=== PATIENT | female | born 1960 | race Caucasian/White ===

== ENCOUNTER 2024-11-05 13:59 | Outpatient (AMB) | payer OTHER, SELFPAY ==
--- NOTE | 2024-11-05 14:01 | A.OFFVIS_ITS ---
Vital Signs 11/05/24 14:06 BP 110/80 Blood Pressure Location Lt brachial Position Sitting Pulse 94 Pulse Source Pulse Oximeter Pulse Oximetry (%) 100 Oxygen Delivery Method Room Air Intake Visit Reasons: Hx Lung CA Allergies nafcillin Adverse Reaction (Verified 11/05/24 14:10) Hives Penicillins Adverse Reaction (Verified 11/05/24 14:10) Hives Medication List - Last Reconciled 11/05/24 by Tiki Vega LPN cetirizine (Zyrtec) 10 mg PO DAILY PRN furosemide 20 mg PO DAILY ipratropium bromide 2 sprays intranasal BID lorazepam 0.5 mg PO DAILY PRN losartan 100 mg PO DAILY montelukast (Singulair) 10 mg PO DAILY pantoprazole 40 mg PO DAILY rosuvastatin 10 mg PO DAILY HPI Comments Details: The patient is here for a pulmonary evaluation. The patient is a 64 year woman with known history of COPD in addition to lung cancer status post resection back about 5 years ago. She is followed closely by thoracic surgery. She has had CT scans every 6 months for the last 5 years in no evidence of any recurrence. Therefore, she will continue to get CAT scans in a yearly basis now. The patient does complaint of dyspnea on exertion. Moderate severity. She also complains of productive cough with chest congestion. Seems to be getting worse. Sometimes it wakes her up at nighttime. she feels like her symptoms are worse when she is in her home. She is wondering if she could be having a reaction to something in the environment. She does not have good ventilation inside the apartment. She feels that this is causing her to have worsening respiratory symptoms. She has been on the Trelegy inhaler with good effect. She also has a rescue inhaler. She does not tolerate regular albuterol so therefore she does take levo albuterol with better response. She does have frequent exacerbations. When she does have an exacerbation she does respond well to prednisone. At this point the patient will be a great candidate for Daliresp. She has chronic bronchitis with multiple exacerbations. The Daliresp will help decrease her prednisone need and hopefully decrease the mucus burden inflammation of the airways. She can start with 250 mcg dose. She is aware of the side effects. And hopefully she can increase it to the 500 mcg dose in the future. She did have blood work done at [facility] which were reviewed. No evidence of any eosinophilia so therefore not a candidate for Dupixent at this time. One other option to consider is Ohtuvayre. [facility] Medical History (Updated 11/05/24 @ 22:44 by Irvin Shepard MD) Dyspnea History of lung cancer COPD (chronic obstructive pulmonary disease) Review of Systems Const Denies fever(s) Eyes Reports no additional complaints ENT Reports nasal congestion Card Denies chest pain and Reports dyspnea on exertion Resp Reports chest congestion, Reports cough, Reports dyspnea on exertion and Reports wheezing GI Reports no additional complaints Musc Reports myalgias Skin/Breast Denies rash Endo Reports flushing and Reports heat intolerance Ralph/Lymph Reports no additional complaints Aller/Immun Reports wheezing Physical Exam Vital Signs: Last Vital Signs Pulse 94 11/05/24 14:06 BP 110/80 11/05/24 14:06 Pulse Ox 100 11/05/24 14:06 Oxygen Delivery Method Room Air 11/05/24 14:06 Const General: comfortable HEENT Head: Yes normocephalic Neck Neck: Yes supple Chest Chest palpation & inspection: normal inspection of the chest Resp Effort & Inspection: normal respiratory effort Auscultation: rhonchi and diminished lung sounds Cardio Heart sounds: S1 normal heart sound present and S2 normal heart sound present GI Palpation (GI): Soft to palpation Skin General skin exam: no rashes or lesions noted Extrem Right upper extremity: no cyanosis Assessment & Plan Assessment & Plan (1) COPD (chronic obstructive pulmonary disease): Code(s): J44.9 - Chronic obstructive pulmonary disease, unspecified Category: Medical Qualifiers: COPD type: chronic bronchitis Chronic bronchitis type: mucopurulent Qualified Code(s): J41.1 - Mucopurulent chronic bronchitis (2) History of lung cancer: Code(s): Z85.118 - Personal history of other malignant neoplasm of bronchus and lung Category: Medical (3) Dyspnea: Code(s): R06.00 - Dyspnea, unspecified Category: Medical Qualifiers: Dyspnea type: dyspnea on exertion Qualified Code(s): R06.09 - Other forms of dyspnea Plan Continue Trelegy ERICA (xopenex) as needed start Daliresp 250mcg dose then should increase when able continue singulair PFTs/F/U same day in 8 weeks Orders: Orders PFT pulmonary function test Today J41.1 - Mucopurulent chronic bronchitis Medications: New roflumilast (Daliresp) 250 mcg PO DAILY 30 days 30 tabs 11RF J44.9 - Chronic obstructive pulmonary disease, unspecified Coding Level of Care Code New Pt Level 4 (40425) Diagnoses Mucopurulent chronic bronchitis J41.1 COPD type: chronic bronchitis Chronic bronchitis type: mucopurulent History of lung cancer Z85.118 Dyspnea on exertion R06.09 Dyspnea type: dyspnea on exertion Time Spent (min) 45
[2024-11-05 14:06] VITALS: BP 110/80; PULSE 94; O2SAT 100
== END 2024-11-05 14:45 | disposition home or self-care (01) ==
PROVIDERS: PCP Internal Medicine; Referring Provider Internal Medicine; Visit Provider Hospitalist
DX: J41.1 Mucopurulent chronic bronchitis (principal); Z85.118 Personal history of other malignant neoplasm of bronchus and lung; R06.09 Other forms of dyspnea
CPT/HCPCS: 99204

== ENCOUNTER → 2024-11-05 13:59 | Outpatient (BNVA) | payer OTHER, SELFPAY | PROVIDERS: PCP Internal Medicine; Referring Provider Internal Medicine; Visit Provider Hospitalist | DX: J41.1 Mucopurulent chronic bronchitis (principal); R06.09 Other forms of dyspnea; Z85.118 Personal history of other malignant neoplasm of bronchus and lung | CPT/HCPCS: 99202 ==

== ENCOUNTER 2024-12-25 13:05 | Outpatient (REF) | payer OTHER, SELFPAY ==
--- NOTE | 2024-12-25 13:09 | PFT_ITS ---
Indication: Chronic bronchitis Spirometry [FEV1 to FVC 59%; FEV1 2.13 L; FVC 3.59 L. No significant response to bronchodilators noted.] Lung Volumes [Total lung capacity 102% predicted] Diffusion Capacity [DLCO 74% predicted] Comparisons [none] Interpretation [There is an obstructive ventilatory defect consistent with mild COPD. No significant response to bronchodilators noted. Lung volumes are normal. The patient does have a mild diffusion impairment. Clinical correlation warranted.] MTDD
[2024-12-25 13:59] VITALS: PULSE 92
--- OUTSIDE RECORDS SUMMARY | 2024-12-25 14:43 | XMS_ITS | Clinical Summary ---
Author Organization [facility] Address [address] [place] [phone] Phone Care Team Providers Care Chronometer Assembler Name Role Phone Wil Guerrero MD Primary Care Provider Allergies Active Allergy Reactions Criticality Noted Date Comments Nafcillin Rash High 01/22/2019 Other reaction(s): Hives/Urticaria Medications Medication Sig Dispensed Refills Start Date End Date Status losartan (COZAAR) 100 MG tablet Take 100 mg by mouth daily. Active loratadine (CLARITIN) 10 mg tablet Take 10 mg by mouth daily. Active furosemide (LASIX) 20 MG tablet Take 20 mg by mouth. Active albuterol 90 mcg/actuation inhaler Inhale 2 puffs into the lungs every 6 (six) hours as needed for wheezing. Active citalopram (CELEXA) 20 MG tablet Take 20 mg by mouth daily. Active ipratropium (ATROVENT) 42 mcg (0.06 %) nasal spray 2 sprays by Nasal route. Active montelukast (SINGULAIR) 10 mg tablet Take 10 mg by mouth. Active umeclidinium-vilanter oL (ANORO ELLIPTA) 62.5-25 mcg/actuation diskus inhaler Inhale into the lungs. Active LORazepam (ATIVAN) 0.5 MG tablet Take 0.5 mg by mouth every 6 (six) hours as needed. Active pantoprazole (PROTONIX) 40 MG tablet Take 40 mg by mouth. Active naproxen (NAPROSYN) 375 MG tablet Take 1 tablet (375 mg total) by mouth 2 (two) times a day with meals for 7 days. 14 tablet 09/06/2021 Active Active Problems No known active problems Social History Tobacco Use Types Packs/Day Years Used Date Smoking Tobacco: Never Smokeless Tobacco: Never Alcohol Use Standard Drinks/Week Comments Yes 2 (1 standard drink = 0.6 oz pur e alcohol) occasionally Education Answer Date Recorded Are you interested in more education? Not on barbara e 02/15/2023 Are you concerned about learning? Not on file 02/15/2023 No 02/15/2023 No 02/15/2023 Digital Access Answer Date Recorded No 03/16/2023 No 03/16/2023 No 03/16/2023 Reliable internet access at home? Not on file 03/16/2023 Device with a working camera? Not on file Sex and Gender Information Value Date Recorded Sex Assigned at Female 04/22/2021 9:45 AM EDT Gender Identity Female 04/22/2021 9:45 AM EDT Sexual Orientation Straight 04/22/2021 9: 45 AM EDT Last Filed Vital Signs Vital Sign Reading Time Taken Comments Blood Pressure 115/76 11/18/2021 5:06 AM EST Pulse 89 11/18/2021 5:06 AM EST Temperature 37 ??C (98.6 ??F) 11/18/2021 5:06 AM EST Respiratory Rate 18 11/18/2021 2:04 AM EST Oxygen Saturation 98% 11/18/2021 5:06 AM EST Inhaled Oxygen Concentration - - Weight 77.1 kg (170 lb) 11/18/2021 2:04 AM EST Height 167.6 cm (5' 6 ) 11/18/2021 2:04 AM EST Body Mass Index 27.44 11/18/2021 2:04 AM EST Plan of Treatment Health Maintenance Due Date Last Done Comments LIPID PANEL 1959 DEPRESSION SCREENING 1971 HEPATITIS C SCREENING 1977 HIV ONE-TIME SCREENING (18-6 5 YEARS) 1977 MAMMOGRAM 1999 COLOGUARD 2004 COLONOSCOPY 2004 COLORECTAL CANCER SCREENING 2004 FIT TEST 2004 FOBT 2004 SIGMOIDOSCOPY 2004 VIRTUAL COLONOSCOPY 2004 ZOSTER VACCINES (1 of 2) 2009 PNEUMOCOCCAL VACCINES (50+ years) (2 of 2 - PCV) 05/03/2021 05/03/2020 CREATININE LEVEL 11/18/2022 11/18/2021, 04/22/2021 POTASSIUM LEVEL 11/18/2022 11/18/2021, 04/22/2021 OSTEOPOROSIS SCREENING INITI AL (ONE-TIME) 2024 INFLUENZA VACCINE (#1) 2024 0, 09/09/2019, 10/16/2016 COVID-19 VACCINE (3 - 2023-2 5 season) 2024 01/23/2021, 01/01/2021 Adult Td,Tdap Booster 04/29/2030 04/29/2020 RSV VACCINE (1 - 1-dose 75+ series) 2034 SMOKING STATUS SCREENING (On ce After 26 Yrs) Completed 11/18/2021 HEPATITIS A VACCINES Aged Out No long er eligible based on patient's age to complete this topic HIB VACCINES Aged Out No longer eligi ble based on patient's age to complete this topic MENINGOCOCCAL VACCINES (ACWY) Aged Out No longer eligible based on patient's age to complete this topic Medical Devices Not on file Procedures Procedure Name Priority Date/Time Associated Diagnosis Comments BASIC METABOLIC PANEL STAT 11/18/2021 2:19 AM EST from Last 3 Months or Most Recently Relevant to Health Maintenance Results * (ABNORMAL) Basic metabolic panel (11/18/2021 2:19 AM EST) SODIUM 139 133 - 146 mmol/L [facility] CHLORIDE 103 96 - 108 mmol/L [facility] POTASSIUM 3.3 3.3 - 5.1 mmol/L [facility] CO2 22 21 - 35 mmol/L [facility] BUN 14 6 - 19 mg/dL [facility] CREATININE 0.90 0.5 - 1.5 mg/dL [facility] GLUCOSE 101(H) 70 - 99 mg/dL [facility] CALCIUM 8.8 8.4 - 10.3 mg/dL [facility] EGFR 72 >59 mL/min/1.7 3m2 [facility] Comment:Estimated glomerular filtration rate calculated using the CKD-EPI refit equation. ANION GAP 17 10 - 20 mmol/L [facility] Blood 11/18/2021 2:19 AM EST 11/18/2021 2:24 AM EST Beka Bella MD LAB BLOOD ORDERA [place] [facility] [address] [place] [address] from Last 3 Months or Most Recently Relevant to Health Maintenance Kerensallyrianna Penelope Personal/Famil y Self 1960 [address] [facility] [address] Kerenvenkatesh Penelope Personal/Famil y Self 1960 [address] [facility] [place] [address] Duong Penelope Personal/Famil y Self 1960 [address] [facility] [place] [address] Kerenvenkatesh Penelope Personal/Famil y Self 1960 [address] [facility] [place] [address] Penelope Watters Personal/Famil y Self [address] [facility] [address] Tala Watterseen Personal/Famil y Self 1960 [address] [facility] [place] [address] Penelope Watters Personal/Famil y Self [address] [facility] [place] [address] Penelope Watters Personal/Famil y Self [address] [facility] [place] [address] Care Teams Chronometer Assembler Relationship Specialty Start Date End Date Wil Guerrero MD [address] [place] [address] PCP - General Internal Medicine 06/27/21 Additional Source Comments The information contained in this document represents components of the legal health record. It is not the complete legal health record.[facility]
--- OUTSIDE RECORDS SUMMARY | 2024-12-25 14:43 | XMS_ITS | Encounter Summary ---
Author Organization [facility] Address [address] [phone] Phone Care Team Providers Care Color Maker Formulator Name Role Phone Wil Guerrero MD Primary Care Provider Encounter Details Date Type Department Care Team (Late st Contact Info) Description 11/18/2021 Procedure [facility], Ct Scan - [address] [address] Social History Tobacco Use Types Packs/Day Years Used Date Smoking Tobacco: Never Smokeless Tobacco: Never Alcohol Use Standard Drinks/Week Comments Yes 2 (1 standard drink = 0.6 oz pur e alcohol) occasionally Sex and Gender Information Value Date Recorded Sex Assigned at Female 04/22/2021 9:45 AM EDT Gender Identity Female 04/22/2021 9:45 AM EDT Sexual Orientation Straight 04/22/2021 9: 45 AM EDT documented as of this encounter Plan of Treatment Not on file documented as of this encounter Visit Diagnoses Not on filedocumented in this encounter Care Teams Color Maker Formulator Relationship Specialty Start Date End Date Wil Guerrero MD [address] [place] [id number] PCP - General Internal Medicine 06/27/21 documented as of this encounter Additional Source Comments The information contained in this document represents components of the legal health record. It is not the complete legal health record.[facility]
--- OUTSIDE RECORDS SUMMARY | 2024-12-25 14:43 | XMS_ITS ---
Author Organization [facility] Address [address] [place] [id number] Care Team Providers Care Wheelman Name Role Phone Wil Guerrero Primary Care Provider ALLERGIES Allergen (clinical drug ingredient) Drug/Non Drug Allergy documented on EMR Reaction Allergy Type Onset Date Status nafcillin Nafcillin Sodium hives Drug Allergy Active REASON FOR VISIT (IN OFFICE), Annual Complete Physical Exam MEDICATIONS Medication SIG (Take, Route, Frequency, Duration) Notes Start Date End Date Status traZODone HCl 50 MG 1 tablet at bedtime as needed Orally Once a day for 30 day(s) Active Trelegy Ellipta 200-62.5-25 MCG/ACT INHALE 1 PUFF BY MOUTH EVERY DAY Active metroNIDAZOLE 0.75 % 1 application Exter eve Once a day for 90 Days Active Cyclobenzaprine HCl 10 MG 1 tablet as ne eded Orally 3 times a day for 14 days Active Naproxen 500 MG 1 tablet with food o r milk as needed Orally Twice a day for 14 days Active Albuterol Sulfate (2.5 MG/3ML) 0.083% 3 ml as needed Inhalation every 8 hrs Active Ventolin HFA 108 (90 Base) MCG/ACT 1 puff as needed Inhalation every 4 hrs Active Ipratropium [place] 0.06 % USE 2 SPRAYS IN EACH NOSTRIL 3 TIMES A DAY Active Doxycycline Hyclate 100 MG 1 tablet Oral ly every 12 hrs for 30 days Active Vitamin D3 50 MCG (1999 UT) 1 capsule Or ally Once a day for 90 Days Active Alendronate Sodium 70 MG 1 tablet 30 min utes before the first food, beverage or medicine of the day with plain water Orally once a week Active Vitamin B 12 250 MCG 2 tabs as directed Orally daily Active Furosemide 20 MG TAKE 1 TABLET BY MARIA GUADALUPE TH EVERY DAY FOR 90 DAYS Active Singulair 10 MG 1 tablet Orally Once a day Active Prolia 60 MG/ML 1 injection Subcutan eous every 6 months Active Losartan Potassium 100 MG TAKE 1 TABLET BY MOUTH EVERY DAY for 90 Active Pantoprazole Sodium 40 MG TAKE 1 TABLET BY MOUTH EVERY DAY for 90 Active Trelegy Ellipta 200-62.5-25 MCG/ACT INHALE 1 PUFF BY MOUTH EVERY DAY for 30 Active Montelukast Sodium 10 MG TAKE 1 TABLET B Y MOUTH EVERY DAY for 90 Active Albuterol Sulfate HFA 108 (90 Base) MCG/ACT INHALE 1 PUFF BY MOUTH EVERY 4 HOURS NEEDED for 30 Active Naproxen 500 MG TAKE 1 TABLET BY MARIA GUADALUPE TH TWICE DAILY WITH FOOD OR MILK FOR 14 DAYS NEEDED for 14 Active AeroChamber Plus Miky-Vu - as directed Ex ternally Four times a day for 30 days 08/02/2023 Active LORazepam 0.5 MG TAKE 1 TABLET BY MARIA GUADALUPE TH EVERY DAY for 30 07/05/2024 Active Furosemide 20 MG TAKE 1 TABLET BY MARIA GUADALUPE TH EVERY DAY for 90 Active Cetirizine HCl 10 MG 1 tablet Orally Onc e a day for 90 Days 12/17/2022 Active D3 Super Strength 50 MCG (2000 UT) TAKE 1 CAPSULE BY MOUTH EVERY DAYNOT COVERED BY INS Active SOCIAL HISTORY Tobacco Use: Social History Observation Description Date Details (start date - stop date) Former Smoker NA - NA Sex Assigned At : Social History Observation Description Sex Assigned At Unknown Tobacco Use/Smoking Question Answer Notes Are you a former smoker Alcohol Screen Question Answer Notes Did you have a drink contain ing alcohol in the past year? Yes How often did you have a dri nk containing alcohol in the past year? Monthly or less (1 point) Points 1 Interpretation Negative Encounters Encounter Location Date Provider Diagnosis [id number] [id number] 09/21/20 24 Wil Guerrero ASSESSMENTS Encounter Date Diagnosis Assessment Notes Treatment Notes Treatment Clinical Notes 09/21/2024 Other This chart has been transcribed by a computerized dictation system. There are likely to be multiple railway head tender inaccuracies despite chart review. PLAN OF TREATMENT Treatment Notes Assessment Notes Other This chart has been transcribed by a computerized dictation system. There are likely to be multiple railway head tender inaccuracies despite chart review. Next Appt Details Provider Name:Wil romero, 02/04/2025 11:00:00 AM, [address] [place] [address], [phone], Progress Notes * Examination Category Sub-Category Detail Notes General Examination GENERAL APPEARANCE: in no ac diomede distress, well developed, well nourished HEAD: normocephalic, atrau matic EYES: pupils equal, round, reactive to light and accommodation EARS: normal, auditory can al clear, tympanic membrane intact, clear NOSE: nares patent, no les ions, septum intact, clear discharge THROAT: clear, no erythema, uvula midline, no exudate NECK/THYROID: neck supple, trachea midline, no thyromegaly, no carotid bruit HEART: no murmurs, regular rate and rhythm, S1, S2 normal LUNGS: clear to auscultatio n bilaterally ABDOMEN: soft, nontender, non distended, no organomegaly , bowel sounds present NEUROLOGIC: alert and oriented x 3, normal strength, tone and reflexes, sensory exam intact SKIN: no suspicious lesion s, warm and dry EXTREMITIES: no clubbing, cyanosi s, or edema PERIPHERAL PULSES: normal, 2+ throughou t MUSCULOSKELETAL: normal, full range o f motion LYMPH NODES: no cervical, axillar y, supraclavicular or inguinal adenopathy PSYCH: cognitive function i ntact, mood/affect full range ORAL CAVITY: mucosa moist, no les ions, palate normal, tongue in midline, well papillated
--- OUTSIDE RECORDS SUMMARY | 2024-12-25 14:43 | XMS_ITS | Patient Health Record ---
Author Organization [facility] Address [address] [place] [id number] Care Team Providers Care Claims Supervisor Name Role Phone Elizanick Wil Primary Care Provider [phone] ALLERGIES Allergen (clinical drug ingredient) Drug/Non Drug Allergy documented on EMR Reaction Allergy Type Onset Date Status nafcillin Nafcillin Sodium hives Drug Allergy Active RESULTS Component Value Reference Range Notes Urinalysis, Complete-[id number] Reviewed date:09/15/2024 08:54:25 AM Interpretation: Performing Lab:[facility], [place] [employer] [facility], Phone - [phone], Director - MDJodry Notes/Report: Specific Pioneer 1.006 1.005-1.030 pH 7.0 5.0-7.5 Urine-Color Yellow Yellow Appearance Clear Clear WBC Esterase Trace Negative Protein Negative Negative/Trace Glucose Negative Negative Ketones Negative Negative Occult Blood Negative Negative Bilirubin Negative Negative Urobilinogen,Semi-Qn 0.2 0.2-1.0 mg/dL Nitrite, Urine Negative Negative Microscopic Examination See below: Micr oscopic was indicated and was performed. Microscopic Examination WBC 0-5 0 - 5 /hpf RBC None seen 0 - 2 /hpf Epithelial Cells (non renal) 0-10 0 - 10 /hpf Epithelial Cells (renal) Casts None seen None seen /lpf Cast Type Crystals Crystal Type Mucus Threads Bacteria None seen None seen/Few Yeast Trichomonas Comment Vitamin D, 44-[id number] Reviewed date:09/15/2024 08:54:25 AM Interpretation: Performing Lab:[facility], [address] [place], [place], Phone - [phone], Director - Jodry Notes/Report: Vitamin D, 25-Hydroxy 32.8 30.0-100.0 ng/mL Vitamin D deficiency has been defined by the [place] [employer] and an Endocrine Society practice guideline as a level of serum 25-OH vitamin D less than 20 ng/mL (1,2). The Endocrine Society went on to further define vitamin D insufficiency as a level between 21 and 29 ng/mL (2). 1. IOM ([place] [employer]). 2010. Dietary reference intakes for calcium and D. [place]: The National Academies Press. 2. Artur MF, Víctor MONTERO, Missael BOSS, et al. Evaluation, treatment, and prevention of vitamin D deficiency: an Endocrine Society clinical practice guideline. JCEM. 2010; 96(2):1911-30. TSH+Free [id number] Reviewed date:09/15/2024 08:54:25 AM Interpretation: Performing Lab:[facility], [address] [facility], Phone - [phone], Director - Jarendry Notes/Report: TSH 1.990 0.450-4.500 uIU/mL T4,Free(Direct) 1.24 0.82-1.77 ng/dL Lipid Panel-[id number] Reviewed date:09/15/2024 08:54:25 AM Interpretation: Performing Lab:[facility], [employer] , [place], Phone - [phone], Director - Valeria Notes/Report: Cholesterol, Total 221 100-199 mg/dL Triglycerides 161 0-149 mg/dL HDL Cholesterol 56 >39 mg/dL VLDL Cholesterol Mynor 29 5-40 mg/dL LDL Chol Calc ([facility]) 136 0-99 mg/dL LDL Calc Comment: Comp. Metabolic Panel (13)-3 [id number] Reviewed date:09/15/2024 08:54:25 AM Interpretation: Performing Lab:[facility], [place] , [place], Phone - [phone], Director - MDJodry Notes/Report: Glucose 85 70-99 mg/dL BUN 14 8-27 mg/dL Creatinine 0.81 0.57-1.00 mg/dL eGFR 81 >59 mL/min/1.73 BUN/Creatinine Ratio 17 12-28 Sodium 140 134-144 mmol/L Potassium 4.6 3.5-5.2 mmol/L Chloride 103 96-106 mmol/L Carbon Dioxide, Total 21 20-29 mmol/L Calcium 9.3 8.7-10.3 mg/dL Protein, Total 6.4 6.0-8.5 g/dL Albumin 4.1 3.9-4.9 g/dL Globulin, Total 2.3 1.5-4.5 g/dL Bilirubin, Total 0.4 0.0-1.2 mg/dL Alkaline Phosphatase 113 44-121 IU/L AST (SGOT) 12 0-40 IU/L CBC with Diff, Platelet, NLR -[id number] Reviewed date:09/15/2024 08:54:25 AM Interpretation: Performing Lab:[facility], [address], [place], Phone - [phone], Director - Valeria Notes/Report: WBC 6.9 3.4-10.8 x10E3/uL Effective September 21, 2024 profile [id number] WBC will be made non-orderable as a stand-alone order code. RBC 4.67 3.77-5.28 x10E6/uL Hemoglobin 14.9 11.1-15.9 g/dL Hematocrit 44.8 34.0-46.6 % MCV 96 79-97 fL MCH 31.9 26.6-33.0 pg MCHC 33.3 31.5-35.7 g/dL RDW 13.6 11.7-15.4 % Platelets 323 150-450 x10E3/uL Neutrophils 58 Not Estab. % Lymphs 29 Not Estab. % Monocytes 8 Not Estab. % Eos 4 Not Estab. % Basos 1 Not Estab. % Immature Cells Neutrophils (Absolute) 4.0 1.4-7.0 x10E3/uL Lymphs (Absolute) 2.0 0.7-3.1 x10E3/uL Neut/Lymph Ratio 2.0 0.0-2.9 ratio Published COVID-19 studies suggest: Low likelihood of severe COVID-19 disease progression 0.0-2.9 High likelihood of severe COVID-19 disease progression >4.9 Monocytes(Absolute) 0.6 0.1-0.9 x10E3/uL Eos (Absolute) 0.3 0.0-0.4 x10E3/uL Baso (Absolute) 0.1 0.0-0.2 x10E3/uL Immature Granulocytes 0 Not Estab. % Immature Grans (Abs) 0.0 0.0-0.1 x10E3/uL NRBC Hematology Comments: Dexa Bone Density (Axial) Reviewed date:12/21/2024 06:34:44 PM Interpretation: Performing Lab: Notes/Report: Name:PENELOPE WATTERS Age:64 years Sex:Female Ethnicity:White Date of :1960 Reason: M81.0 OSTEOPOROSIS; Clinical Question(s): Other: Referring Provider:Wil Guerrero MD Study:Dexa Bone Density (Axial) Bone Density: Region BMD T-Score Z-Score Classification AP Spine 0.672 -3.4 -1.6 Osteoporosis TOTAL HIP 0.753 -1.5 -0.3 Osteopenia FEM NECK 0.570 -2.5 -1.0 Osteoporosis 10-year Fracture Risk: Fracture Risk Not Reported: FRAX not reported because: Some T-score for Spine Total or Hip Total or Femoral Neck at or below -2.5 RATE OF CHANGE(SPINE): BMD values have increased 5.2% from previous BMD values have increased 2.3% from baseline RATE OF CHANGE(TOTAL HIP): BMD values have decreased 1.9% from previous BMD values have decreased 5.6% from baseline RATE OF CHANGE(FEMORAL NECK): BMD values have increased 6.7% from previous BMD values have increased 1.3% from baseline Impression: The patient has osteoporosis as determined by WHO criteria. WSN: [id number] Ordering Physician: Wil Guerrero Dictated By: Carroll PITTS, Wil Jones MM Digital Mammo Screening Reviewed date:12/22/2024 10:00:41 AM Interpretation: Performing Lab: Notes/Report: PROCEDURE: MM Digital Mammo Screening INDICATION: Screening for breast cancer. No known palpable abnormalities. COMPARISON: Priors, most recent dated 06/04/2018 TECHNIQUE: Full-field digital CC and MLO 3D tomosynthesis images of both breasts were acquired. Computer-aided detection (CAD) was utilized in the interpretation of this study. DENSITY: There are scattered areas of fibroglandular density. FINDINGS: There is a 7 mm oval mass in the lateral posterior left breast, approximately 2-3 o'clock, approximately 7 to 9 cm from the nipple. Further evaluation with targeted ultrasound recommended. No suspicious findings are seen in the right breast. IMPRESSION: Additional imaging recommended. We will recall the patient. RECOMMENDATION: Left breast ultrasound BI-RADS: 0 (Incomplete - Need Additional Imaging Evaluation. Lay letter mailed to patient WSN: [id number] Ordering Physician: Wil Guerrero Dictated By: Trini De La Rosa MD REASON FOR REFERRAL Reason Consultation - APPT REQUEST & SUPPORTING DOCS Diagnosis 1 Malignant neoplasm o f upper lobe of right lung (C34.11) Diagnosis 2 Chronic obstructive pulmonary disease, unspecified COPD type (J44.9) Referral Organization Wil Guerrero Md Referring Provider First Name Wil Referring Provider Last Name Yolanda Referring Provider Speciality Internal edicine Referred Provider Specialty Pulmonary Di seases General Notes Manuela Carlson 02:55:08 PM EST > patient requested info be sent for referral for a new [facility] , Manuela Carlson 09/08/2024 03:33:19 PM EST > patient aware paperowrk sent she will call them directly to schedule Clinical Notes Dr. Irvin Palma , P:[phone] , F:[phone] Referral Priority Routine Reason Screening colonoscop y Diagnosis 1 Screening for colon cancer (Z12.11) Referral Organization Wil Guerrero Md Referring Provider First Name Wil Referring Provider Last Name Yolanda Referring Provider Speciality Internal edicine Referred Provider Specialty Gastroentero logy General Notes Argelia Castro 10:37:27 AM EST > Faxed to [facility] Clinical Notes [facility] Referral Priority Routine MEDICATIONS Medication SIG (Take, Route, Frequency, Duration) Notes Start Date End Date Status Furosemide 20 MG TAKE 1 TABLET BY MARIA GUADALUPE TH EVERY DAY for 90 Active Naproxen 500 MG 1 tablet with food o r milk as needed Orally Twice a day for 14 days Active Cyclobenzaprine HCl 10 MG 1 tablet as ne eded Orally 3 times a day for 14 days Active Doxycycline Hyclate 100 MG 1 tablet Oral ly every 12 hrs for 30 days Active LORazepam 0.5 MG TAKE 1 TABLET BY MARIA GUADALUPE TH EVERY DAY for 30 12/12/2024 Active metroNIDAZOLE 0.75 % 1 application Exter eve Once a day for 90 Days Active Ventolin HFA 108 (90 Base) MCG/ACT 1 puff as needed Inhalation every 4 hrs Active Cetirizine HCl 10 MG 1 tablet Orally Onc e a day for 90 Days 12/17/2022 Active D3 Super Strength 50 MCG (1999 UT) TAKE 1 CAPSULE BY MOUTH EVERY DAYNOT COVERED BY INS Active traZODone HCl 50 MG TAKE 1 TABLET BY MARIA GUADALUPE TH DAILY AT BEDTIME NEEDED for 30 Active Rosuvastatin Calcium 10 MG 1 tablet Oral ly Once a day for 90 Days 10/28/2024 Active Montelukast Sodium 10 MG TAKE 1 TABLET B Y MOUTH EVERY DAY Active Pantoprazole Sodium 40 MG TAKE 1 TABLET BY MOUTH EVERY DAY for 90 Active Vitamin B 12 250 MCG 2 tabs as directed Orally daily Active Singulair 10 MG 1 tablet Orally Once a day Active Albuterol Sulfate HFA 108 (90 Base) MCG/ACT INHALE 1 PUFF BY MOUTH EVERY 4 HOURS NEEDED for 30 Active AeroChamber Plus Miky-Vu - as directed Ex ternally Four times a day for 30 days 08/02/2023 Active Cyclobenzaprine HCl 5 MG TAKE 1 TABLET B Y MOUTH EVERY DAY AT BEDTIME NEEDED for 30 Active Naproxen 500 MG TAKE 1 TABLET BY MARIA GUADALUPE TH TWICE DAILY WITH FOOD OR MILK FOR 14 DAYS NEEDED for 14 Active Albuterol Sulfate (2.5 MG/3ML) 0.083% 3 ml as needed Inhalation every 8 hrs Active Ipratropium [place] 0.06 % USE 2 SPRAYS IN EACH NOSTRIL 3 TIMES A DAY Active Losartan Potassium 100 MG TAKE 1 TABLET BY MOUTH EVERY DAY for 90 Active Prolia 60 MG/ML 1 injection Subcutan eous every 6 months Active Alendronate Sodium 70 MG 1 tablet 30 min utes before the first food, beverage or medicine of the day with plain water Orally once a week Active Trelegy Ellipta 200-62.5-25 MCG/ACT INHALE 1 PUFF BY MOUTH EVERY DAY for 30 Active IMMUNIZATIONS Vaccine Route Administration Date Status Comme nts Td (adult) Unknown 04/29/2020 Administered Pneumococcal IM Intramuscular 05/03/2020 Administered Influenza (Flucelvax Quad) Unknown 07/21/2024 Administe red *Influenza (Fluarix Quad) IM Intramuscular 09/09/2019 Admi nistered *Influenza (Fluarix Quad) IM Intramuscular 08/02/2020 Admi nistered *Influenza (Fluarix Quad) IM Intramuscular 08/15/2021 Admi nistered *Influenza (Fluarix Quad) IM Intramuscular 08/22/2022 Admi nistered *Influenza (Fluarix Quad) IM Intramuscular 07/25/2023 Admi nistered SOCIAL HISTORY Tobacco Use: Social History Observation [...] less (1 point) Points 1 Interpretation Negative PROBLEMS Problem Type ICD Code Onset Dates Problem Status W/U Status Risk SNOMED Code Notes Problem Annual physical exam (Z00.00) Active confirmed 911940914 Problem Vitamin D deficiency (E55.9) Active confirmed 57183869 Problem Rosacea (L71.9) Active confirmed 581466 004 Problem Anxiety (F41.9) Active confirmed 546419 02 Problem Sacroiliitis (M46.1) Active confirmed 5 2664836 Problem Age-related osteoporosis without current pathological fracture (M81.0) Active confirmed 14381200 Problem Primary insomnia (F51.01) Active confirmed 7072406 Problem Mixed hyperlipidemia (E78.2) Active confirmed 421265780 Problem Essential hypertension (I10) Active confirmed 09856574 Problem Gastroesophageal reflux disease without esophagitis (K21.9) Active confirmed 918863440 Problem Chronic obstructive pulmonary disease, unspecified COPD type (J44.9) Active confirmed 88589815 Problem Spondylosis of lumbar region without myelopathy or radiculopathy (M47.816) Active confirmed 778136540 Problem Depression, unspecified depression type (F32.9) Active confirmed 64961404 Problem Malignant neoplasm of upper lobe of right lung (C34.11) Active confirmed 272187007 Problem Moderate episode of recurrent major depressive disorder (F33.1) Active confirmed 285563424 Problem Osteoporosis without current pathological fracture, unspecified osteoporosis type (M81.0) Active confirmed 47408730 Problem Allergic rhinitis, unspecified seasonality, unspecified trigger (J30.9) Active confirmed 34041571 Problem Major depressive disorder with single episode, in full remission (F32.5) Active confirmed 19017507 Problem Port-A-Cath in place (Z95.828) Active confirmed 540323825 Problem Aneurysm of ascending aorta without rupture (I71.21) Active confirmed 040918053 VITAL SIGNS Heart Rate 80 /min 10/28/2024 Temperature 97.7 degrees Fahrenheit 12/30/2023 Blood pressure diastolic 80 mm Hg 10/28/2024 Height 64 in 10/28/2024 Blood pressure systolic 120 mm Hg 10/28/2024 Weight 170 lbs 10/28/2024 BMI 29.18 kg/m2 10/28/2024 Encounters Encounter Location Date Provider Diagnosis [address] [address] 12/30/2023 Wil Guerrero Chronic obstructive pulmonary disease, unspecified COPD type J44.9 ; Essential hypertension I10 ; Moderate episode of recurrent major depressive disorder F33.1 ; Age-related osteoporosis without current pathological fracture M81.0 ; Malignant neoplasm of upper lobe of right lung C34.11 ; Gastroesophageal reflux disease without esophagitis K21.9 ; Allergic rhinitis, unspecified seasonality, unspecified trigger J30.9 ; Rosacea L71.9 ; Anxiety F41.9 ; Vitamin D deficiency E55.9 ; Acute URI J06.9 and Persistent cough R05.[address] [address] 01/14/[address] [address] 02/11/2024 Wil Guerrero Chronic obstructive pulmonary disease, unspecified COPD type J44.9 ; Essential hypertension I10 ; Moderate episode of recurrent major depressive disorder F33.1 ; Age-related osteoporosis without current pathological fracture M81.0 ; Malignant neoplasm of upper lobe of right lung C34.11 ; Gastroesophageal reflux disease without esophagitis K21.9 ; Allergic rhinitis, unspecified seasonality, unspecified trigger J30.9 ; Rosacea L71.9 ; Anxiety F41.9 and Vitamin D deficiency E55.[address] [address] 02/11/2024 Wil Guerrero Rosacea L71.[address] [address] 05/04/2024 Wil Guerrero Nonspecific low back pain M54.[address] [address] 05/14/2024 Wil [facility] Chronic obstructive pulmonary disease, unspecified COPD type J44.9 ; Essential hypertension I10 ; Moderate episode of recurrent major depressive disorder F33.1 ; Age-related osteoporosis without current pathological fracture M81.0 ; Malignant neoplasm of upper lobe of right lung C34.11 ; Gastroesophageal reflux disease without esophagitis K21.9 ; Allergic rhinitis, unspecified seasonality, unspecified trigger J30.9 ; Rosacea L71.9 ; Anxiety F41.9 ; Vitamin D deficiency E55.9 ; Sacroiliitis M46.1 and Muscle spasm M62.[address] [address] 06/03/[address] [address] 08/13/2024 Wil [facility] Chronic obstructive pulmonary disease, unspecified COPD type J44.9 ; Aneurysm of ascending aorta without rupture I71.21 ; Essential hypertension I10 ; Moderate episode of recurrent major depressive disorder F33.1 ; Age-related osteoporosis without current pathological fracture M81.0 ; Malignant neoplasm of upper lobe of right lung C34.11 ; Gastroesophageal reflux disease without esophagitis K21.9 ; Allergic rhinitis, unspecified seasonality, unspecified trigger J30.9 ; Rosacea L71.9 ; Anxiety F41.9 ; Sacroiliitis M46.1 ; Muscle spasm M62.838 ; Vitamin D deficiency E55.9 ; Laboratory tests ordered as part of a complete physical exam (CPE) Z00.00 and Primary insomnia F51.[address] [address] 09/08/2024 Wil [facility] Chronic obstructive pulmonary disease, unspecified COPD type J44.9 ; Aneurysm of ascending aorta without rupture I71.21 ; Essential hypertension I10 ; Moderate episode of recurrent major depressive disorder F33.1 ; Age-related osteoporosis without current pathological fracture M81.0 ; Malignant neoplasm of upper lobe of right lung C34.11 ; Gastroesophageal reflux disease without esophagitis K21.9 ; Allergic rhinitis, unspecified seasonality, unspecified trigger J30.9 ; Rosacea L71.9 ; Anxiety F41.9 ; Sacroiliitis M46.1 ; Muscle spasm M62.838 ; Primary insomnia F51.01 and Vitamin D deficiency E55.9 Wil Guerrero Md [address] [place] [phone] 09/14/2024 Wil Guerrero [facility], [address] [place] [address] 09/21/2024 Wil Guerrero [facility], [address] [place] [address] 10/28/2024 Wil Guerrero Annual physical exam Z00.00 ; Mixed hyperlipidemia E78.2 ; Encounter for screening mammogram for malignant neoplasm of breast Z12.31 ; Osteoporosis without current pathological fracture, unspecified osteoporosis type M81.0 and Screening for colon cancer Z12.11 ASSESSMENTS Encounter Date Diagnosis Assessment Notes Treatment Notes Treatment Clinical Notes 09/08/2024 Chronic obstructive pulmonary disease, unspecified COPD type (ICD-10 - J44.9) 08/13/2024 Aneurysm of ascendin g aorta without rupture (ICD-10 - I71.21) 08/13/2024 Chronic obstructive pulmonary disease, unspecified COPD type (ICD-10 - J44.9) 05/14/2024 Chronic obstructive pulmonary disease, unspecified COPD type (ICD-10 - J44.9) 05/14/2024 Essential hypertensi on (ICD-10 - I10) 02/11/2024 Rosacea (ICD-10 - L71.9) 12/30/2023 Chronic obstructive pulmonary disease, unspecified COPD type (ICD-10 - J44.9) 12/30/2023 Essential hypertensi on (ICD-10 - I10) 10/28/2024 Mixed hyperlipidemia (ICD-10 - E78.2) 05/04/2024 Nonspecific low back pain (ICD-10 - M54.5) 02/11/2024 Essential hypertensi on (ICD-10 - I10) 10/28/2024 Annual physical exam (ICD-10 - Z00.00) 02/11/2024 Chronic obstructive pulmonary disease, unspecified COPD type (ICD-10 - J44.9) 12/30/2023 Moderate episode of recurrent major depressive disorder (ICD-10 - F33.1) 02/11/2024 Moderate episode of recurrent major depressive disorder (ICD-10 - F33.1) 05/14/2024 Moderate episode of recurrent major depressive disorder (ICD-10 - F33.1) 09/08/2024 Aneurysm of ascendin g aorta without rupture (ICD-10 - I71.21) 09/08/2024 Essential hypertensi on (ICD-10 - I10) 08/13/2024 Essential hypertensi on (ICD-10 - I10) 10/28/2024 Encounter for screening mammogram for malignant neoplasm of breast (ICD-10 - Z12.31) 05/14/2024 Age-related osteoporosis without current pathological fracture (ICD-10 - M81.0) Prolia is not covered by insurance. 09/08/2024 Moderate episode of recurrent major depressive disorder (ICD-10 - F33.1) 08/13/2024 Moderate episode of recurrent major depressive disorder (ICD-10 - F33.1) 12/30/2023 Age-related osteoporosis without current pathological fracture (ICD-10 - M81.0) Prolia is not covered by insurance. 10/28/2024 Osteoporosis without current pathological fracture, unspecified osteoporosis type (ICD-10 - M81.0) 02/11/2024 Age-related osteoporosis without current pathological fracture (ICD-10 - M81.0) Prolia is not covered by insurance. 10/28/2024 Screening for colon cancer (ICD-10 - Z12.11) 02/11/2024 Malignant neoplasm o f upper lobe of right lung (ICD-10 - C34.11) 09/08/2024 Age-related osteoporosis without current pathological fracture (ICD-10 - M81.0) Prolia is not covered by insurance. 12/30/2023 Malignant neoplasm o f upper lobe of right lung (ICD-10 - C34.11) 08/13/2024 Age-related osteoporosis without current pathological fracture (ICD-10 - M81.0) Prolia is not covered by insurance. 05/14/2024 Malignant neoplasm o f upper lobe of right lung (ICD-10 - C34.11) 02/11/2024 Gastroesophageal reflux disease without esophagitis (ICD-10 - K21.9) 12/30/2023 Gastroesophageal reflux disease without esophagitis (ICD-10 - K21.9) 05/14/2024 Gastroesophageal reflux disease without esophagitis (ICD-10 - K21.9) 08/13/2024 Malignant neoplasm o f upper lobe of right lung (ICD-10 - C34.11) 09/08/2024 Malignant neoplasm o f upper lobe of right lung (ICD-10 - C34.11) 12/30/2023 Allergic rhinitis, unspecified seasonality, unspecified trigger (ICD-10 - J30.9) 05/14/2024 Allergic rhinitis, unspecified seasonality, unspecified trigger (ICD-10 - J30.9) 02/11/2024 Allergic rhinitis, unspecified seasonality, unspecified trigger (ICD-10 - J30.9) 08/13/2024 Gastroesophageal reflux disease without esophagitis (ICD-10 - K21.9) 09/08/2024 Gastroesophageal reflux disease without esophagitis (ICD-10 - K21.9) 12/30/2023 Rosacea (ICD-10 - L71.9) 05/14/2024 Rosacea (ICD-10 - L71.9) 09/08/2024 Allergic rhinitis, unspecified seasonality, unspecified trigger (ICD-10 - J30.9) 02/11/2024 Rosacea (ICD-10 - L71.9) 08/13/2024 Allergic rhinitis, unspecified seasonality, unspecified trigger (ICD-10 - J30.9) 02/11/2024 Anxiety (ICD-10 - F41.9) 09/08/2024 Rosacea (ICD-10 - L71.9) 08/13/2024 Rosacea (ICD-10 - L71.9) 05/14/2024 Anxiety (ICD-10 - F41.9) 12/30/2023 Anxiety (ICD-10 - F41.9) 02/11/2024 Vitamin D deficiency (ICD-10 - E55.9) 08/13/2024 Anxiety (ICD-10 - F41.9) 05/14/2024 Vitamin D deficiency (ICD-10 - E55.9) 09/08/2024 Anxiety (ICD-10 - F41.9) 12/30/2023 Vitamin D deficiency (ICD-10 - E55.9) 08/13/2024 Sacroiliitis (ICD-10 - M46.1) 05/14/2024 Sacroiliitis (ICD-10 - M46.1) 09/08/2024 Sacroiliitis (ICD-10 - M46.1) 12/30/2023 Acute URI (ICD-10 - J06.9) 09/08/2024 Muscle spasm (ICD-10 - M62.838) 08/13/2024 Muscle spasm (ICD-10 - M62.838) 05/14/2024 Muscle spasm (ICD-10 - M62.838) 12/30/2023 Persistent cough (ICD-10 - R05.3) 08/13/2024 Vitamin D deficiency (ICD-10 - E55.9) 09/08/2024 Primary insomnia (ICD-10 - F51.01) 08/13/2024 Laboratory tests ordered as part of a complete physical exam (CPE) (ICD-10 - Z00.00) 09/08/2024 Vitamin D deficiency (ICD-10 - E55.9) 08/13/2024 Primary insomnia (ICD-10 - F51.01) 09/21/2024 Other This chart has been transcribed by a computerized dictation system. There are likely to be multiple monkey keeper inaccuracies despite chart review. 10/28/2024 Other This chart has been transcribed by a computerized dictation system. There are likely to be multiple monkey keeper inaccuracies despite chart review. 12/30/2023 Other This chart has been transcribed by a computerized dictation system. There are likely to be multiple monkey keeper inaccuracies despite chart review. 02/11/2024 Other This chart has been transcribed by a computerized dictation system. There are likely to be multiple monkey keeper inaccuracies despite chart review. 05/14/2024 Other This chart has been transcribed by a computerized dictation system. There are likely to be multiple monkey keeper inaccuracies despite chart review. 08/13/2024 Other This chart has been transcribed by a computerized dictation system. There are likely to be multiple monkey keeper inaccuracies despite chart review. 09/08/2024 Other This chart has been transcribed by a computerized dictation system. There are likely to be multiple monkey keeper inaccuracies despite chart review. PLAN OF TREATMENT Pending Test Test Name Order Date MAMMOGRAM, SCREENING 09/16/2023 MAMMOGRAM, SCREENING 10/28/2024 MAMMOGRAM, SCREENING 08/31/2020 Bone Density 01/09/2022 Bone Density 10/28/2024 *EKG 06/12/2022 COMPREHENSIVE METABOLIC PANL 05/07/2019 LIPID PANEL 05/07/2019 THYROID PANEL 05/07/2019 COMPLETE CBC WITH DIFF 05/07/2019 COMPLETE URINALYSIS 05/07/2019 Hip Comp Min 2 Views Left 07/06/2019 25OH VITAMIN D 07/25/2023 25OH VITAMIN D 06/12/2022 CBC (COMPLETE BLOOD COUNT) WITH DIFF 02/2023 CBC (COMPLETE BLOOD COUNT) WITH DIFF COMPREHENSIVE METABOLIC PANEL 06/12/2022 COMPREHENSIVE METABOLIC PANEL 07/25/2023 FOLIC ACID 06/12/2022 LIPID PANEL 06/12/2022 LIPID PANEL 07/25/2023 THYROID PANEL (TSH, FT4) 07/25/2023 THYROID PANEL (TSH, FT4) 06/12/2022 URINALYSIS, COMPLETE 06/12/2022 URINALYSIS, COMPLETE 07/25/2023 VITAMIN B12 06/12/2022 Pulmonary Rehab 08/16/2023 Hepatic Function Panel [phone] Lipid Panel-[id number] 10/28/2024 Next Appt Details Provider Name:Wil romero, 02/04/2025 11:00:00 AM, [address] [place], [address], Insurance Providers Payer Name Payer Address Payer Phone Subscriber Number Group Number Insured Name Patient Relationship to Insured Coverage Start Date Coverage End Date [place] [address], [address] [place] [address] [phone] [facility] [id number] Penelope Alonzo Self - patient is the insured MEDICAL (GENERAL) HISTORY Medical History History ICD Code Malignant neoplasm of upper lobe of righ t lung C34.11 Essential hypertension I10 Depression, unspecified depression type F32.9 Primary insomnia F51.01 Anxiety F41.9 Surgical History Surgery Date(Month/Year) mediastinoscopy and lymph no de sampling for malignant neoplasm of the right long right upper and partial medial lumpectom y arthroscopic surgery for right rotator c uff injury Total hysterectomy Hospitalization History Reason Date(Month/Year) for above procedures
--- OUTSIDE RECORDS SUMMARY | 2024-12-25 14:43 | XMS_ITS ---
[facility] Address [address] [place] [id number] Care Team Providers Care Installer Name Role Phone Wil Guerrero Primary Care Provider [phone] REASON FOR VISIT Message Encounters Encounter Location Date Provider Diagnosis Wil Guerrero Md [address] [place] [phone] 09/14/2024 Wil Guerrero PLAN OF TREATMENT Next Appt Details Provider Name:Wil romero, 02/04/2025 11:00:00 AM, [address] [place] [address], [phone],
--- OUTSIDE RECORDS SUMMARY | 2024-12-25 14:43 | XMS_ITS ---
Author Organization [facility], Address [address] [place] [phone] Care Team Providers Care Front Desk Administrator Name Role Phone Wil Guerrero Primary Care Provider [phone] ALLERGIES Allergen (clinical drug ingredient) Drug/Non Drug Allergy documented on EMR Reaction Allergy Type Onset Date Status nafcillin Nafcillin Sodium hives Drug Allergy Active REASON FOR REFERRAL Reason Screening colonoscop y Diagnosis 1 Screening for colon cancer (Z12.11) Referral Organization Wil Guerrero Md Referring Provider First Name Wil Referring Provider Last Name Yolanda Referring Provider Speciality Internal M edicine Referred Provider Specialty Gastroentero logy General Notes Argelia Castro 10:37:27 AM EST > Faxed to [facility] Clinical Notes [facility] Referral Priority Routine REASON FOR VISIT (IN OFFICE), Annual Complete Physical Exam MEDICATIONS Medication SIG (Take, Route, Frequency, Duration) Notes Start Date End Date Status Furosemide 20 MG TAKE 1 TABLET BY MARIA GUADALUPE TH EVERY DAY for 90 Active Trelegy Ellipta 200-62.5-25 MCG/ACT INHALE 1 PUFF BY MOUTH EVERY DAY for 30 Active traZODone HCl 50 MG TAKE 1 TABLET BY MARIA GUADALUPE TH DAILY AT BEDTIME NEEDED for 30 Active Rosuvastatin Calcium 10 MG 1 tablet Oral ly Once a day for 90 Days 10/28/2024 Active Pantoprazole Sodium 40 MG TAKE 1 TABLET BY MOUTH EVERY DAY for 90 Active Naproxen 500 MG 1 tablet with food o r milk as needed Orally Twice a day for 14 days Active Cyclobenzaprine HCl 10 MG 1 tablet as ne eded Orally 3 times a day for 14 days Active Doxycycline Hyclate 100 MG 1 tablet Oral ly every 12 hrs for 30 days Active metroNIDAZOLE 0.75 % 1 application Exter eve Once a day for 90 Days Active Ventolin HFA 108 (90 Base) MCG/ACT 1 puff as needed Inhalation every 4 hrs Active Singulair 10 MG 1 tablet Orally Once a day Active Albuterol Sulfate (2.5 MG/3ML) 0.083% 3 ml as needed Inhalation every 8 hrs Active Ipratropium [place] 0.06 % USE 2 SPRAYS IN EACH NOSTRIL 3 TIMES A DAY Active Prolia 60 MG/ML 1 injection Subcutan eous every 6 months Active Alendronate Sodium 70 MG 1 tablet 30 min utes before the first food, beverage or medicine of the day with plain water Orally once a week Active Vitamin B 12 250 MCG 2 tabs as directed Orally daily Active Losartan Potassium 100 MG TAKE 1 TABLET BY MOUTH EVERY DAY for 90 Active Albuterol Sulfate HFA 108 (90 Base) MCG/ACT INHALE 1 PUFF BY MOUTH EVERY 4 HOURS NEEDED for 30 Active AeroChamber Plus Miky-Vu - as directed Ex ternally Four times a day for 30 days 08/02/2023 Active Naproxen 500 MG TAKE 1 TABLET BY MARIA GUADALUPE TH TWICE DAILY WITH FOOD OR MILK FOR 14 DAYS NEEDED for 14 Active Cetirizine HCl 10 MG 1 tablet Orally Onc e a day for 90 Days 12/17/2022 Active LORazepam 0.5 MG 1 tablet Orally Once a day for 30 days Active D3 Super Strength 50 MCG (1999 [place]) TAKE 1 CAPSULE BY MOUTH EVERY DAYNOT COVERED BY INS Active Montelukast Sodium 10 MG TAKE 1 TABLET B Y MOUTH EVERY DAY Active SOCIAL HISTORY Tobacco Use: Social History Observation Description Date Details (start date - stop date) Former Smoker NA - NA Sex Assigned At : Social History Observation Description Sex Assigned At Unknown Tobacco Use/Smoking Question Answer Notes Are you a former smoker PROBLEMS Problem Type ICD Code Onset Dates Problem Status W/U Status Risk SNOMED Code Notes Problem Annual physical exam (Z00.00) Active confirmed 918937148 Problem Mixed hyperlipidemia (E78.2) Active confirmed 123962334 VITAL SIGNS Height 64 in 10/28/2024 Weight 170 lbs 10/28/2024 BMI 29.18 kg/m2 10/28/2024 Blood pressure systolic 120 mm Hg 10/28/19 25 Blood pressure diastolic 80 mm Hg 025 Heart Rate 80 /min 10/28/2024 Encounters Encounter Location Date Provider Diagnosis Yolanda Starr, [address] [place] [phone] 10/28/2024 Wil Trandeborah Annual physical exam Z00.00 ; Mixed hyperlipidemia E78.2 ; Encounter for screening mammogram for malignant neoplasm of breast Z12.31 ; Osteoporosis without current pathological fracture, unspecified osteoporosis type M81.0 and Screening for colon cancer Z12.11 ASSESSMENTS Encounter Date Diagnosis Assessment Notes Treatment Notes Treatment Clinical Notes 10/28/2024 Annual physical exam (ICD-10 - Z00.00) 10/28/2024 Mixed hyperlipidemia (ICD-10 - E78.2) 10/28/2024 Encounter for screening mammogram for malignant neoplasm of breast (ICD-10 - Z12.31) 10/28/2024 Osteoporosis without current pathological fracture, unspecified osteoporosis type (ICD-10 - M81.0) 10/28/2024 Screening for colon cancer (ICD-10 - Z12.11) 10/28/2024 Other This chart has been transcribed by a computerized dictation system. There are likely to be multiple missile and missile checkout technician inaccuracies despite chart review. PLAN OF TREATMENT Medication Medication Name Sig Start Date Stop Date Notes Rosuvastatin Calcium 10 MG 1 tablet Oral ly Once a day for 90 Days 10/28/2024 Treatment Notes Assessment Notes Other This chart has been transcribed by a computerized dictation system. There are likely to be multiple missile and missile checkout technician inaccuracies despite chart review. Pending Test Test Name Order Date MAMMOGRAM, SCREENING 10/28/2024 Bone Density 10/28/2024 Hepatic Function Panel [id number] Lipid Panel-[id number] 10/28/2024 Referrals Referral Date Details Screening colonoscop y Next Appt Details Follow Up: 3 Months, Reason: Follow-up Provider Name:Wil Fatemeh Eliza romero, 02/04/2025 11:00:00 AM, [address] [place] [address], [phone], Progress Notes * Examination Category Sub-Category Detail Notes General Examination GENERAL APPEARANCE: in no ac senthil distress, well developed, well nourished HEAD: normocephalic, [...] palate normal, tongue in midline, well papillated History and Physical Notes * HPI (History of Present Illness) Category Sub-Category Detail Notes Depression Screening PHQ-9 Little inte rest or pleasure in doing things: Several days Feeling down, depressed, or hopeless: No t at all Trouble falling or staying asleep, or sl eeping too much: Nearly every day Feeling tired or having little energy: M ore than half the days Poor appetite or overeating: Nearly ever y day Feeling bad about yourself o r that you are a failure, or have let yourself or your family down: Not at all Trouble concentrating on thi ngs, such as reading the newspaper or watching television: Nearly every day Moving or speaking so slowly that other people could have noticed; or the opposite, being so fidgety or restless that you have been moving around a lot more than usual: Not at all Thoughts that you would be b julian off or of hurting yourself in some way: Not at all Total Score: 12 Interpretation: Moderate Depression Consultation Request Notes Referral Date Referring Provider Referred Provider Not trina 10/28/2024 Wil Guerrero , Screening col onoscopy
--- OUTSIDE RECORDS SUMMARY | 2024-12-25 14:44 | XMS_ITS | Data Portability ---
Author Organization [facility] Address [address] [place] [address] Care Team Providers [facility] [employer] Floorperson Name Role Phone HIM CCA OTHER Assessment Encounter Date Assessment Date Assessment LastModified by Organization Details LastModified Time 08/29/2023 08/29/2023 I provided real -time medical direction via phone for this encounter, and was available for additional phone based assistance as needed. I have reviewed and agree with the Assessment and Plan as documented by the Assistant Professor Of English. Patient given the opportunity to ask questions. Advised needs close follow-up with her PCP-advised can call us for another visit if she is not improving in 2 to 3 days. And also let us know if she is unable to get her prescriptions within the next 24 hours. Also advised if develops CP/severe SOB/turning blue/severe abdominal or flank pain /uncontrolled n/v/d /AMS/ syncope/ hi fever unresponsive to APAP to call 911-she verbalized understanding of instructions Not available 08/29/2023 23:11:06 07/09/2024 07/09/2024 I provided real -time medical direction via phone for this encounter and was available for additional phone-based assistance as needed. I have reviewed and agree with the Assessment and Plan as documented by the Assistant Professor Of English. Patient given the opportunity to ask questions. Our service contacted for an assessment of: COPD As per above, patient has underlying lung disease and states that a couple times of year has exacerbation of her underlying pulmonary state. She does use her inhalers regularly as well as nebulizers with albuterol. She denies a productive cough but does have a dry 1. She denies fever or chills. She denies having postnasal drip but does feel congested in her upper airways. She denies chest pain shortness of breath and dyspnea on exertion. Per tuber machine operator helper on the scene, vital signs are stable patient is afebrile. There is rhonchi on exam per tuber machine operator helper exam. No desats with movement. ECG noted. COVID and flu were both negative. Impression: Likely COPD exacerbation without evidence of infection Plan: Patient states she usually responds well to a prednisone administration. I do not see a clear indication for antibiotics but would have a low threshold and have encouraged her to follow-up with her PCP. Red flags discussed. Allergies: Reviewed PCP f/u: We discussed the diagnostic uncertainty of home visits and the risk associated with this. In this case, the patient and I felt this to be an acceptable and reasonable amount of risk given the benefit of avoiding an ED visit. We discussed the need to seek care urgently/emergen tly in the setting of any new or worsening serious symptoms, particularly fever [place]ills [email or web address] [id number] Not available 07/09/2024 18:49:42 Plan of Treatment Reminders Order Date Submit Date Provider Last Modified By Organization Details Last Modified Time Details Appointments None recorded. Lab rapid SARS CoV 2 Ag, QL IA, respiratory specimen [address], [address] [place] [address], [id number], 4 18:42:54 rapid flu (A+B) [address], [address] [place] [address], [id number], 4 18:42:53 culture, urine 2022 023 [facility], [address] [place] [address], Rohit B, [place], [address], 3 10:08:48 urinalysis, dipstick 2022 023 [email or web address] 0 [facility], [address] [place] [address], [id number], 3 12:48:53 influenza virus A + B and SARS CoV 2 (COVID-19) and RSV RNA panel, KATIE+probe, respiratory specimen 2022 023 [facility], [address], Rohit B, [place], [address], 3 10:08:48 rapid SARS CoV 2 Ag, QL IA, respiratory specimen 2022 023 [email or web address] [facility], [address] [place] [address], [id number], 3 12:47:30 rapid flu (A+B) 2022 023 [email or web address] 0 [facility], [address] [place] [address], [id number], 3 12:47:31 rapid strep group A, throat 2022 023 [email or web address] 0 [facility], [address] [place] [address], [id number], 3 12:47:27 BMP, serum or plasma 2022 023 [email or web address] [facility], [address] [place] [address], [id number], 3 23:15:00 Referral None recorded. Procedures None recorded. Surgeries None recorded. Imaging electrocard iogram 2023 024 [email or web address] [facility], [address] [place] [address], [id number], 4 14:33:55 electrocard iogram 2022 023 [email or web address] 0 [facility], [address] [place] [address], [address], 3 23:27:19 Medication Orders prednisone 20 mg tablet 2023 024 [facility]50900, [address], [place], [id number], 4 18:51:18 albuterol sulfate 2.5 mg/3 mL (0.083 %) solution for nebulizatio n 2023 024 [email or web address] [facility] #10283, [address] [place] [address], [id number], 4 18:52:22 Cipro 500 mg tablet 2022 023 [facility] #91432, [address] [place] [address], [id number], 3 12:54:26 ciprofloxac in 500 mg tablet 2022 023 [email or web address] [facility] #25953, [address] [place] [address], [id number], 3 12:54:20 Tylenol Extra Strength 500 mg tablet 2022 023 [email or web address] 0 [facility] #10226, [address] [place] [address], [id number], 3 12:54:20 prednisone 10 mg tablet 2022 023 [facility] #31840, [address] [place] [address], [id number], 3 12:54:25 prednisone 20 mg tablet 2022 023 [email or web address] 0 [facility] #71928, [address] [place] [address], [id number], 3 12:54:20 benzonatate 200 mg capsule 2022 023 [email or web address] [facility] #08571, [address] [place] [address], [id number], 3 13:08:49 Patient TargetsNo targets recorded. Patient InstructionsNo instructions recorded. Reason for Referral None Reported. Results Created Date Observation Date Name Description Value Unit Range Abnormal Flag Note LastModifiedBy Organization Detail LastModifiedTime 08/29/20 23 09/01/2023 SARS COV2/ INFLU CANDIS A/B AND RSV RNA QL NAAT influenza A RNA NOT DETECT ED not detect ed normal Not Available [facility] [place] [facility] [address], [address], 09/01/2023 10:08:47 08/29/20 23 09/01/2023 SARS COV2/ INFLU CANDIS A/B AND RSV RNA QL NAAT influenza B RNA NOT DETECT ED not detect ed normal Not Available [facility] [place] [facility] [address], [address], 09/01/2023 10:08:47 08/29/20 23 09/01/2023 SARS COV2/ INFLU CANDIS A/B AND RSV RNA QL NAAT RSV RNA NOT DETECT ED not detect ed normal Not Available [facility] [place] [facility] [address], [address], 09/01/2023 10:08:47 08/29/20 23 09/01/2023 SARS COV2/ INFLU CANDIS A/B AND RSV RNA QL NAAT sars cov2 RNA DETECT ED not detect ed abnormal A Detec ken resul t indic ates that RNA from SARS- CoV-2 , influ candis A, influ candis B or RSV was Detec ken. Clini susannah corre latio n with patie nt histo ry and other diagn ostic infor matio n is neces eliot to deter mine patie nt infec tion statu s. Posit daniel resul ts do not rule out bacte rial infec tion or co-in fecti on with other virus es. The agent detec ekn may not be the defin ite cause of disea se. Test resul ts will be repor ken to the appro priat e publi c healt h autho ritie s. Pleas e revie w the Fact Sheet s and FDA autho rized label ing avail able for healt h care provi ders and patie nts using the follo wing websi luis m: https ://placido w.que stdia gnost ics.c om/ho me/Co vid-1 9/HCP /NAAT /fact -shee t2 https ://placido w.que stdia gnost ics.c om/ho me/Co vid-1 9/Pat ients /NAAT / fact- sheet 2 The test for detec tion of SARS- CoV-2 has been autho rized by the FDA under an Emerg ency Use Autho rizat ion (EUA) for use by autho rized labor atori es. Metho dolog y: Nucle ic Acid Ampli ficat ion Test inclu ding rever se trans cript ion polym erase chain react ion (RT-P CR) and trans cript ion media ken ampli ficat ion (TMA) . For patie nts with a Detec ken or Incon clusi ve test resul t, pleas e see CDC's COVID -19 Treat ments and Medic ation s page locat ed at https ://ww w.cdc .gov/ coron aviru s/201 9-nco v/you r-hea lth/t reatm ents- for- sever e-ill ness. html for infor matio n on COVID -19 thera peuti cs. For patie nts with a Not Detec ken test resul t, pleas e see CDC's Vacci ciro for COVID -19 page locat ed at https ://ww w.cdc .gov/ coron aviru s/201 9-nco v/vac cines /inde x.htm l for infor matio n on COVID -19 vacci ciro. Not Available [facility] [address], [place], [address], 09/01/2023 10:08:47 08/29/20 23 09/01/2023 CULTU RE, URINE , ROUTI NE culture, urine, routine SEE NOTE CULTU RE, URINE , ROUTI NE Micro Numbe r: [id number] Test Statu s: Final Speci men Sourc e: Urine Speci men Quali ty: Adequ ate Resul t: No Growt h Not Available [facility] [address] Ro[address] B, [place], [address], 09/01/2023 10:08:48 08/29/2008/29/2023 BMP, serum or plasm a BUN 11 Not Available [facility] [address], [address], 08/29/2023 13:10:59 08/29/20 23 08/29/2023 BMP, serum or plasm a Ca Ionize d calciu m 1.18 Not Available [facility] [address], [address], 08/29/2023 13:10:59 08/29/20 23 08/29/2023 BMP, serum or plasm a CI- 108 Not Available [facility] [address], [address], 08/29/2023 13:10:59 08/29/20 23 08/29/2023 BMP, serum or plasm a CRE 0.97 Not Available [facility] [address], [address], 08/29/2023 13:10:59 08/29/20 23 08/29/2023 BMP, serum or plasm a GLU 117 Not Available [facility] [address], [address], 08/29/2023 13:10:59 08/29/20 23 08/29/2023 BMP, serum or plasm a K+ 3.9 Not Available [facility] [address], [address], 08/29/2023 13:10:59 08/29/20 23 08/29/2023 BMP, serum or plasm a Na+ 143 Not Available [facility] [address], [address], 08/29/2023 13:10:59 08/29/20 23 08/29/2023 BMP, serum or plasm a tCO2 25 Not Available [facility] [address], [address], 08/29/2023 13:10:59 08/29/2008/29/2023 urina lysis , dipst ick Leukocytes + Not Available [facility] [address] [place] [address], [address], 08/29/2023 12:47:42 08/29/2008/29/2023 urina lysis , dipst ick Nitrite negati ve Not Available [facility] [address] [place] [address], [address], 08/29/2023 12:47:42 08/29/2008/29/2023 urina lysis , dipst ick Urobilinogen 0.2 Not Available [facility] [address] [place] [address], [address], 08/29/2023 12:47:42 08/29/2008/29/2023 urina lysis , dipst ick Protein trace Not Available [facility] [address], [address], 08/29/2023 12:47:42 08/29/2008/29/2023 urina lysis , dipst ick pH 5 Not Available [facility] [address], [address], 08/29/2023 12:47:42 08/29/2008/29/2023 urina lysis , dipst ick Blood 1+ Not Available [facility] [address], [address], 08/29/2023 12:47:42 08/29/2008/29/2023 urina lysis , dipst ick Specific Hardin 1.015 Not Available [facility] [address] [place] [address], [address], 08/29/2023 12:47:42 08/29/20 23 08/29/2023 urina lysis , dipst ick Ketone neg Not Available [facility] [address] [place] [address], [address], 08/29/2023 12:47:42 08/29/20 23 08/29/2023 urina lysis , dipst ick Bilirubin neg Not Available [facility] [address] [place] [address], [address], 08/29/2023 12:47:42 08/29/20 23 08/29/2023 urina lysis , dipst ick Glucose neg Not Available [facility] [address] [place] [address], [address], 08/29/2023 12:47:42 08/29/20 23 08/29/2023 urina lysis , dipst ick Appearance clear Not Available [facility] [address] [place] [address], [address], 08/29/2023 12:47:42 08/29/20 23 08/29/2023 urina lysis , dipst ick Color yellow Not Available [facility] [address] [place] [address], [address], 08/29/2023 12:47:42 08/29/20 23 08/29/2023 rapid strep group A, throa t Strep negati ve Not Available [facility] [address] [place] [address], [address], 08/29/2023 12:43:56 08/29/20 23 08/29/2023 rapid flu (A+B) Flu negati ve Not Available [facility] [address] [place] [address], [address], 08/29/2023 12:43:48 08/29/20 23 08/29/2023 rapid SARS CoV 2 Ag, QL IA, respi rator y speci men rapid SARS CoV 2 Ag, QL IA, respiratory specimen negati ve Not Available [facility] [address] [place] [address], [address], 08/29/2023 12:43:41 07/09/20 24 07/09/2024 rapid flu (A+B) Flu negati ve Not Available [facility] [address] [place] [address], [address], 07/09/2024 18:42:12 07/09/20 24 07/09/2024 rapid SARS CoV 2 Ag, QL IA, respi rator y speci men rapid SARS CoV 2 Ag, QL IA, respiratory specimen negati ve Not Available [facility] [address] [place] [address], [address], 07/09/2024 18:42:11 08/29/20 23 08/29/2023 elect rocar diogr am No observ ation record ed. [email or web address] [address], [address], 08/29/2023 23:27:18 07/09/20 24 07/09/2024 elect rocar diogr am No observ ation record ed. [address], [address], 07/09/2024 20:45:45 Result Notes None recorded. Procedures Surgical History None recorded. Imaging Results Imaging Date Name Status LastModified by Organization Details LastModified Time 08/29/2023 electrocardiogram completed [email or web address] [address], [address], 08/29/2023 23:27:18 07/09/2024 electrocardiogram completed [address], [address], 07/09/2024 20:45:45 Procedure Notes None recorded. Medical Equipment None Reported. Allergies Allergen ID Allergen Name Allergen Category Reaction Reaction Severity Criticality Documentation Date Start Date Code Code System Note Provider Name and Address Organization Details Recorded Time 3735 Product containin g penicilli n (product) medicatio n Not available Not available Not available 08/29/2023 32698 8001 SNOMED Not Available [facility] - production 4 03:48:33 Medications Name Sig Start Date Stop Date Status Note LastModified by Organization Details LastModified Time cyclobenzapri ne 10 mg tablet TAKE 1 TABLET BY MOUTH THREE TIMES DAILY FOR 14 DAYS NEEDED active Not Available Not Available No t Available prednisone 10 mg tablet Take w/ food- take 5 tabs orally for 2 days then 4 tabs orally for 2 days then 3 tabs orally for 2 days then 2 tabs orally for 2 days, then 1 tab orally for 2 days active Not Available Not Available No t Available nitrofurantoi n macrocrystal 50 mg capsule TAKE 1 CAPSULE BY MOUTH AT BEDTIME active Not Available Not Available No t Available albuterol sulfate 2.5 mg/3 mL (0.083 %) solution for nebulization USE 1 VIAL VIA NEBULIZER EVERY 4 HOURS NEEDED FOR WHEEZING active Not Available Not Available No t Available cetirizine 10 mg tablet active Not Available Not Available No t Available cefpodoxime 200 mg tablet active Not Available Not Availabl e Not Available azithromycin 250 mg tablet active Not Available Not Availabl e Not Available levalbuterol 0.63 mg/3 mL solution for nebulization USE 3 ML VIA NEBULIZER THREE TIMES DAILY NEEDED FOR WHEEZING OR SHORTNESS OF BREATH active Not Available Not Available No t Available benzonatate 200 mg capsule TAKE 1 CAPSULE BY MOUTH THREE TIMES DAILY FOR 7 DAYS NEEDED FOR COUGH active Not Available Not Available No t Available prednisone 20 mg tablet TAKE 2 TABLETS BY MOUTH DAILY FOR 4 DAYS active Not Available Not Available No t Available alendronate 70 mg tablet TAKE 1 TABLET BY MOUTH 1 TIME A WEEK 30 MINUTES BEFORE FIRST FOOD OR BEVERAGE OR MEDICINE OF THE DAY WITH WATER active Not Available Not Available N ot Available methylprednis olone 4 mg tablet TAKE 6 TABLETS BY MOUTH ONCE DAILY FOR 3 DAYS THEN 4 TABLETS DAILY FOR 3 DAYS THEN 2 TABLETS DAILY FOR 3 DAYS active Not Available Not Available No t Available naproxen 250 mg tablet TAKE 1 TABLET BY MOUTH THREE TIMES DAILY WITH FOOD OR MILK NEEDED active Not Available Not Available No t Available clindamycin HCl 150 mg capsule TAKE 1 CAPSULE BY MOUTH EVERY 6 HOURS UNTIL ALL TAKEN active Not Available Not Available No t Available ciprofloxacin 250 mg tablet TAKE 1 TABLET BY MOUTH TWICE DAILY active Not Available Not Available No t Available ciprofloxacin 500 mg tablet TAKE 1 TABLET BY MOUTH EVERY 12 HOURS FOR 7 DAYS active Not Available Not Available No t Available tramadol 50 mg tablet TAKE 1 TABLET BY MOUTH EVERY 6 HOURS FOR 5 DAYS NEEDED active Not Available Not Available No t Available lorazepam 0.5 mg tablet TAKE 1 TABLET BY MOUTH EVERY DAY active Not Available Not Available No t Available pantoprazole 40 mg tablet,delaye d release TAKE 1 TABLET BY MOUTH EVERY DAY active Not Available Not Available No t Available prednisone 50 mg tablet TAKE 1 TABLET BY MOUTH DAILY FOR 5 DAYS TO. START AT LUNCH TODAY active Not Available Not Available No t Available montelukast 10 mg tablet TAKE 1 TABLET BY MOUTH EVERY DAY active Not Available Not Available No t Available codeine 10 mg-guaifenesi n 100 mg/5 mL oral liquid TAKE 10 ML BY MOUTH EVERY 6 HOURS FOR 5 DAYS NEEDED active Not Available Not Available No t Available furosemide 20 mg tablet TAKE 1 TABLET BY MOUTH EVERY DAY active Not Available Not Available No t Available albuterol sulfate HFA 90 mcg/actuation aerosol inhaler INHALE 1 PUFF BY MOUTH EVERY 4 HOURS NEEDED active Not Available Not Available No t Available ipratropium bromide 42 mcg (0.06 %) nasal spray USE 2 SPRAYS IN EACH NOSTRIL THREE TIMES DAILY active Not Available Not Available No t Available losartan 100 mg tablet TAKE 1 TABLET BY MOUTH EVERY DAY active Not Available Not Available No t Available fluticasone propionate 50 mcg/actuation nasal spray,suspens ion active Not Available Not Available Not Available metronidazole 0.75 % topical gel APPLY A SMALL AMOUNT TOPICALLY TO THE AFFECTED AREA ONCE DAILY active Not Available Not Available No t Available doxycycline hyclate 100 mg tablet TAKE 1 TABLET BY MOUTH EVERY 12 HOURS active Not Available Not Available No t Available naproxen 500 mg tablet TAKE 1 TABLET BY MOUTH TWICE DAILY WITH FOOD OR MILK FOR 14 DAYS NEEDED active Not Available Not Available No t Available Tylenol Extra Strength 500 mg tablet 2 tabs now 2022 active Not Available Not Available Not Avai lable cyclobenzapri ne 5 mg tablet TAKE 1 TABLET BY MOUTH EVERY DAY AT BEDTIME NEEDED active Not Available Not Available No t Available nitrofurantoi n monohydrate/m acrocrystals 100 mg capsule TAKE 1 CAPSULE BY MOUTH EVERY 12 HOURS WITH FOOD FOR 7 DAYS active Not Available Not Available No t Available levalbuterol HFA 45 mcg/actuation aerosol inhaler INHALE 2 PUFFS BY MOUTH EVERY 6 HOURS NEEDED FOR WHEEZING active Not Available Not Available No t Available cholecalcifer ol (vitamin D3) 50 mcg (2,000 unit) capsule TAKE 1 CAPSULE BY MOUTH DAILY active Not Available Not Available No t Available cholecalcifer ol (vitamin D3) 50 mcg (2,000 unit) tablet TAKE 1 TABLET BY MOUTH EVERY DAY active Not Available Not Available No t Available ProChamber USE DIRECTED active Not Available Not Available No t Available Anoro Ellipta 62.5 mcg-25 mcg/actuation powder for inhalation INHALE 1 PUFF BY MOUTH EVERY DAY active Not Available Not Available No t Available Stiolto Respimat 2.5 mcg-2.5 mcg/actuation solution for inhalation INHALE 2 PUFFS INTO THE LUNGS ONCE DAILY DIRECTED - USE AT THE SAME TIME EVERY DAY active Not Available Not Available No t Available Breztri Aerosphere 160 mcg-9mcg-4.8m cg/actuation HFA aerosol inhaler INHALE 2 PUFFS BY MOUTH TWICE DAILY active Not Available Not Available No t Available Trelegy Ellipta 200 mcg-62.5 mcg-25 mcg powder for inhalation INHALE 1 PUFF BY MOUTH EVERY DAY active Not Available Not Available No t Available Paxlovid 300 mg (150 mg x 2)-100 mg tablets in a dose pack active Not Available Not Available No t Available Vitals Date Recorded Body height Body temperature Oxygen saturation Oxygen saturation in Arterial blood by Pulse oximetry Body weight Respiratory rate Heart rate Systolic blood pressure Diastolic blood pressure Provider Name and Address Organization Details Last Updated DateTime 3 165.1 cm 100 [degF] 98 % 98 % 53374.5 6 g 16 /min 113 /min 132 mm[Hg] 92 mm[Hg] Not Available [facility] 3 12:37:38 Date Recorded Body temperature Heart rate Respiratory rate Oxygen saturation Oxygen saturation in Arterial blood by Pulse oximetry Systolic blood pressure Diastolic blood pressure Provider Name and Address Organization Details Last Updated DateTime 4 97.6 [degF] 88 /min 22 /min 95 % 95 % 137 mm[Hg] 93 mm[Hg] Not Available [facility] 4 12:22:41 Social History None recorded. Functional Status None recorded. Mental Status None recorded. Family History Nothing Reported. Medical History No medical history recorded. Gynecological HistoryNo gynecological history recorded. Obstetrics History GPAL:G 0 P 0 0 0 0 Past Encounters Encounter ID Performer Location Encounter Start Date Encounter Closed Date Diagnosis/Indication Diagnosis SNOMED-CT Code Diagnosis ICD10 Code Diagnosis Note [id number] Tiki Reeves MD [facility] [address] [place] [phone] 08/29/2023 12:37:22 08/30/2023 12:58:36 Respiratory tract infection 331523444 J98.8 bmp done-non concerning in case covid pcr + and pat requires paxlovid- made pt aware would call if pcr + for any of the 3 viral illnesses Advised to use her MDI with spacer at least 4 times a day and to use the nebulizer if needed.Pre dnisone prescribed -discussed with patient the only cough suppressan t I can prescribe are Mucinex and Tessalon through this program, cannot prescribe narcotic cough medicine. She states Mucinex does not work and she is concerned about the cost of Tessalon. Discussed getting a good Rx card also offered to write a smaller prescripti on with several refills and she verbalized she would like to try that option.Adv ised she may have Tylenol or TheraFlu 4 times a day -maximum dose of all forms of acetaminop hen/Tyleno l would be 3 g per 24 hours for her weight Urinary symptoms [id number] 08 R39.9 Will call if urine culture reveals bacteria resistant to Cipro. Advised to stay well-hydra ken. I requested she hold the nitrofuran toin again while she is on the Cipro. Sinus tachycardia 696137 01 R00.0 Patient has no chest pain likely due to cough and low-grade temp [id number] Savanna Hicks MD [facility] [address] [place] [phone] 07/09/2024 12:22:38 07/09/2024 21:01:10 Acute exacerbation of chronic obstructive pulmonary disease 422271983 J44.1 Health Concerns Section Related Observation LastModified by Organization Estella morales LastModified Time None Recorded Concern Status LastModified by Organization Details LastModified Time None Recorded Advance Directives Directive None Recorded Payers Encounter Date Sequence Insurance Name Policy Number Policy Urrutia Covered Member ID Urrutia Member ID Guarantor Name 08/29/2023 1 [facility] - DOS ON OR AFTER 2023 - DUAL ELIGIBLE - [employer]DC OPTIONS AND ONE CARE (MEDICARE REPLACEMENT/AD VANTAGE - HMO) Penelope Watters [id number] Penelope Watters 07/09/2024 1 [facility] - DOS ON OR AFTER 2023 - DUAL ELIGIBLE - [employer]DC OPTIONS AND ONE CARE (MEDICARE REPLACEMENT/AD VANTAGE - HMO) Penelope Watters [id number] Penelope Watters Notes Date Note Type Note Provider Name and Address Organization Details Recorded Time 08/29/2023 text/html [facility] Nursing Assessment: Chief Complaints: Cough, ENT, UTI/Pyelonephritis PMH: Cancer, COPD/Asthma Allergies: Penicillin Comments: Reports non-productive cough that started yesterday worsening over the night into today. Increased sob. Patient used inhaler during the night. Denies fever. 02 sat 96% RA. Rapid Covid test done last night and this morning which were both negative. ...................... ...................... ...................... ...................... ...................... ...................... ......... Assistant Professor Of English Note From Willain Elmore: [facility] arrives to find a 63-year-old female standing in kitchen. Patient reports upper respiratory infection symptoms that began on Saturday night with a cough, sore throat, shortness of breath. Patient has recent persistent history of UTI as well, reporting urinary pressure and frequency. Patient recently finished a round of ciprofloxacin. patient was recently treated in hospital for sepsis related to kidney infection. Patient has taken TheraFlu and spacer inhaler with mild relief and symptoms. Patient was advised to stop taking TheraFlu prior to visit to be able to assess symptoms properly. Vital signs taken as noted. 12 lead shows sinus tachycardia at a rate of 113. No noted infarct, ischemia, ectopy. Covid, flu, strep tests negative. Urinalysis completed and uploaded. PCR Covid prepped for send out. Urine culture prep for send out. POC blood work drawn and analyzed. [facility] consulted. Orders received for 60 mg of prednisone PO, 500 mg of ciprofloxacin, PO, and 1 g of Tylenol. Patient is advised that prescriptions are sent to pharmacy and to follow up with primary care and urologist as soon as possible. Patient advised of red flags for emergency room visit. [facility] 3 clear Assistant Professor Of English Allergies: Penicillin ...................... ...................... ...................... ...................... ...................... ...................... ......... Disposition: Fulfilled SEGMD: As above. Patient reports recurrent UTI. States she usually does well with Cipro. She finished her Cipro 3 days ago. She is on nitrofurantoin 50 mg nightly prophylactically since 07/19-it was held while she was on the Cipro. She has UTI symptoms as above. No flank pain. She denies N/V/D. Patient has a history of lung CA status post right upper lobe lobectomy and partial middle lobe lobectomy/COPD. She has been using her inhaler with spacer regularly does not like to use her nebulizer because it makes her jittery but she has medication for it. Today is day 3 of uri s/s. No fever. She states her cough is dry. She reports her chest is congested- she is not really having any chest pain. She reports she usually does well with a 10-day prednisone taper. She was unaware she had a fever. She last took TheraFlu which contains Tylenol 8.5 hours prior to our visit. She has had no other Tylenol. Her primary concern is the cough. Tiki Reeves MD [address] [facility], [place], [address], [employer] 08/29/2023 23:27:28 07/09/2024 text/html CRC Nurse Triage Notes (Mari Ambrosio): Reason For Request: SOB Chief Complaints: Shortness of Breath/Dyspnea PMH: Cancer, COPD/Asthma Allergies: Penicillin Comments: Director [employer] verified the member's name//address and phone number. Member is a 64 yr old female, a/o3 PMH >COPD / Lung CA , right half lung removed Allergies >PCN Pt calling for SOB . She has a hoarse voice with congestion. She does not have an AC and feels her allergies are acting up. She got her PNA shot last week but feels she still gets the congestion like she has PNA. She normally has to go on prednisone. She is sob while talking . She has COPD and h/o Lung CA with half right lung removed. She has HS o2 . She has used with nebs and inhalers with no change Education provided on the response time and the member was advised to monitor reported s/s and seek emergency treatment if needed Assistant Professor Of English Organization Information for [employer] Legal Name: [employer].? Address: [address] [place] [address], Garbage Stoker: Claude Hong MD CLIA No.: [id number] Assistant Professor Of English POC Test Results from [facility] [employer] EKG (12:22:51) EKG test performed. Attachments uploaded as part of this test result can be found under Documents section. Rapid influenza antigen (12:23:37) Flu: - Attachments uploaded as part of this test result can be found under Documents section. Rapid COVID antigen (12:23:40) COVID: - Attachments uploaded as part of this test result can be found under Documents section. Rapid strep test (12:23:41) Strep: - Attachments uploaded as part of this test result can be found under Documents section. ...................... ...................... ...................... ...................... ...................... ...................... ......... Assistant Professor Of English Note From Antonio Milan: Was dispatched for a 64 Y/O female complaining of SOB. UOA PT was found standing in her kitchen. PT is A/Ox4. PT did not appear to be in any distress. PT reported she feels she is having a hard time catching her breath since last night. PT also reported she feels it may be her allergies due to her feeling this way every year. PT also reported she usual gets prescribed prednisone and that helps. PT vitals were obtained and an assessment was performed. PT HEENT, JVD, pupils, and skin were normal. PT lung were clear with bilateral chest rise. PT ABD area was soft and non tender. PT has normal CSMs in all her extremities. EKG was obtained with no abnormal findings. PT was tested for Covid, flu, and strep, all negative. [facility] was contacted. [facility] ordered 40 mg of prednisone, and a duo neb. [facility] placed a prescription of prednisone for the PT. [facility] was happy with treatment and cleared crew. Assistant Professor Of English Allergies: Penicillin ...................... ...................... ...................... ...................... ...................... ...................... ......... Disposition: Fulfilled Savanna Hicks MD [address] [facility], [place], [address], VICK YipitMOHAMUD DELUNA 07/09/2024 18:53:35 OBGyn Episode No OBEpisode recorded.
--- OUTSIDE RECORDS SUMMARY | 2024-12-25 14:44 | XMS_ITS | Clinical Summary ---
Author Organization [facility] Address [address] [place] [address] Care Team Providers Care Assistant Professor Of Theater Name Role Phone Wil Guerrero MD Primary Care Provider [phone] Allergies Active Allergy Reactions Criticality Noted Date Comments Nafcillin Rash High 01/22/2019 Other reaction(s): Hives/Urticaria Medications Medication Sig Dispensed Refills Start Date End Date Status LORazepam (ATIVAN) 0.5 MG tablet Take 1 tablet (0.5 mg total) by mouth every 6 (six) hours as needed. 0 Active naproxen (NAPROSYN) 500 MG tablet Take 1 tablet (500 mg total) by mouth 2 (two) times a day with meals. prn pain 30 tablet 2 09/03/2019 Active losartan (COZAAR) tablet 50 mg Take 1 tablet (50 mg total) by mouth daily. 0 Active furosemide (LASIX) 20 MG tablet Take 1 tablet (20 mg total) by mouth 2 (two) times a day. 0 Active pantoprazole (PROTONIX) 40 MG tablet Take 1 tablet (40 mg total) by mouth every morning on an empty stomach. 0 Active montelukast (SINGULAIR) 10 MG tablet Take 1 tablet (10 mg total) by mouth every night at bedtime. 0 Active fluticasone (FLONASE) 50 MCG/ACT nasal spray spray/apply 1 spray in each nostril daily. 0 Active Bphhhrf-Kmyidjwsemh-A ormoterol (BREZTRI AEROSPHERE IN) Inhale into the lungs. 0 Active Cetirizine HCl (ZYRTEC ALLERGY PO) Take by mouth. 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 Bronchogenic cancer of right lung 01/25/2019 Empyema of lung 01/25/2019 Social History Tobacco Use Types Packs/Day Years Used Date Smoking Tobacco: Former Smokeless Tobacco: Never Alcohol Use Standard Drinks/Week Comments Yes 0 (1 standard drink = 0.6 oz pur e alcohol) Sex and Gender Information Value Date Recorded Sex Assigned at Female 11/14/2021 1:38 PM EST Gender Identity Not on file Sexual Orientation Not on file Job Start Date Occupation Industry Not on file Not on file Not on file Last Filed Vital Signs Vital Sign Reading Time Taken Comments Blood Pressure 112/87 07/10/2023 1:59 PM EDT Pulse 101 07/10/2023 1:59 PM EDT Temperature 36.9 ??C (98.5 ??F) 07/10/2023 1:59 PM ED T Respiratory Rate - - Oxygen Saturation 93% 07/10/2023 1:59 PM EDT Inhaled Oxygen Concentration - - Weight 81.9 kg (180 lb 9.6 oz) 07/10/2023 1:59 P M EDT Height 167.6 cm (5' 6 ) 07/10/2023 1:59 PM EDT Body Mass Index 29.15 07/10/2023 1:59 PM EDT Plan of Treatment Health Maintenance Due Date Last Done Comments Hepatitis C Screening 1960 Pneumococcal Vaccine (1 of 2 - PCV) 1965 Pneumococcal Vaccine (1 of 2 - PCV) 1965 Depression Screening 1971 Preventative Health Evaluation 1977 DTap / Tdap / Td (1 - Tdap) 1978 Shingrix-Zoster Vaccine (1 o f 2) 1978 Cervical Cancer Screening (Pap Smear) 1980 Colon Cancer Screening (Colonoscopy) 2004 Breast Cancer Screening (Mammogram) 2009 Fall Risk Assessment 2024 Osteoporosis Screening (DEXA Scan) 2024 COVID-19 Vaccine (2023-2 5 season) 2024 10/05/2021, 01/23/2021, 01/01/2021 Influenza Vaccine (#1) 2024 RSV Adult > 60+ Yrs or (1 - 1-dose 75+ series) 2034 Hepatitis B Vaccines Aged Out No long er eligible based on patient's age to complete this topic RSV Ped < 20 months Aged Out No longe r eligible based on patient's age to complete this topic Care Teams Assistant Professor Of Theater Relationship Specialty Start Date End Date Wil Guerrero MD [address] [place] [address] [address] [place] [address] PCP - General Internal Medicine 04/21/19
--- OUTSIDE RECORDS SUMMARY | 2024-12-25 14:44 | XMS_ITS | Clinical Summary ---
Author Organization [employer] [facility] ity Address [address] [place] [address] Care Team Providers Care Supervisor Customer Complaint Service Name Role Phone Wil Guerrero MD Primary Care Provider [phone] Immunizations Name Administration Dates Next Due Pfizer SARS-CoV-2 COVID-19, mRNA, LNP-S, preservative free 01/01/2021 Surgical History Surgery Date Site/Laterality Comments HYSTERECTOMY PROCEDURE: HISTORICAL HYSTERECTOMY; COMMENT: cervical cancer OTHER SURGICAL HISTORY Right PROCEDURE: CT RESCJ&BRONCHOPLASTY PFRMD TM LOBEC/SGMECTOMY; COMMENT: RUL and RML ROTATOR CUFF REPAIR Right PROCEDURE: HISTORICAL ROTATOR CUFF REPAIR BREAST LUMPECTOMY Right PROCEDURE: HISTORICAL BREAST LUMPECTOMY; COMMENT: right and partial medial lumpectomy Medical History Medical History Date Comments Allergic rhinitis 05/20/2017 DX:Allergic rh initis COPD (chronic obstructive pu lmonary disease) ([facility]) 05/20/2017 DX:COPD (chronic obstructive pulmonary disease) ([facility]) Multiple environmental allergies 05/20/2017 DX:Multiple environmental allergies Tobacco user 05/20/2017 DX:Tobacco user Osteoporosis 11/05/2017 DX:Osteoporosis History of cervical cancer 11/05/2017 DX:Hi story of cervical cancer History of scarlet fever 11/05/2017 DX:Hist ory of scarlet fever Hypertension DX:Hypertension Hx of cancer of lung DX:Hx of ca ncer of lung Anxiety disorder DX:Anxiety diso rder Depression DX:Depression Primary insomnia DX:Primary inso mnia Lung cancer ([facility]) 01/15/2019 DX:Lung ca ncer ([facility]) Empyema of right pleural spa ce ([facility]) 01/23/2019 DX:Empyema of right pleural space (HCC) Family History Medical History Relation Name Comments Heart failure Father Hypertension Father Hypertension Mother Lymphoma Mother Relation Name Status Comments Father Mother Sister Alive Social History Tobacco Use Types Packs/Day Years Used Date Smoking Tobacco: Former Cigarettes Q uit: 12/04/2018 Smokeless Tobacco: Never Alcohol Use Standard Drinks/Week Comments Yes 2 (1 standard drink = 0.6 oz pur e alcohol) Comments Unknown Sex and Gender Information Value Date Recorded Sex Assigned at Not on file Legal Sex Female 1:17 AM EST Gender Identity Not on file Sexual Orientation Not on file Obstetrics History Last Filed Vital Signs Vital Sign Reading Time Taken Comments Blood Pressure 128/88 05/19/2024 1:56 PM EDT Sit ting L Arm Pulse 112 05/19/2024 1:56 PM EDT Temperature - - Respiratory Rate - - Oxygen Saturation - - Inhaled Oxygen Concentration - - Weight 77.6 kg (171 lb) 05/19/2024 1:56 PM EDT Height 165.1 cm (5' 5 ) 05/19/2024 1:56 PM EDT Body Mass Index 28.46 05/19/2024 1:56 PM EDT Plan of Treatment Health Maintenance Due Date Last Done Comments Zoster Vaccines (1 of 2) 1978 Cervical Cancer Screening: P ap Smear 1980 RSV Immunization Patients 60 + Years Old (1 - Risk 60-74 years 1-dose series) 2019 Pneumococcal Vaccine: 50+ Years (2 of 2 - PCV) 05/03/2021 05/03/2020 Pneumococcal Vaccine: Pediatrics (0 to 5 Years) and At-Risk Patients (6 to 64 Years) (2 of 2 - PCV) 05/03/2021 05/03/2020 Cholesterol Screening (Lipid Panel) 09/27/2022 Colorectal Cancer Screening: Colonoscopy 09/27/2022 Depression Screening 09/27/2022 Hepatitis C Screening 09/27/2022 Osteoporosis Screening (Bone Density Screening) 09/27/2022 Social Influencers of Health Screening 09/27/2022 Breast Cancer Screening 12/25/2023 12/24/2021 Falls Risk Assessment 2024 COVID-19 Vaccine (4 - 2023-2 5 season) 2024 10/05/2021, 01/23/2021, 01/01/2021 Influenza Vaccine (#1) 2024 1, 08/02/2020, 09/09/2019 DTaP,Tdap,and Td Vaccines (2 - Td or Tdap) 04/29/2030 04/29/2020 HIB Vaccines Aged Out No longer eligi ble based on patient's age to complete this topic HPV Vaccines Aged Out No longer eligi ble based on patient's age to complete this topic Hepatitis A Vaccines Aged Out No long er eligible based on patient's age to complete this topic Hepatitis B Vaccines Aged Out No long er eligible based on patient's age to complete this topic IPV Vaccines Aged Out No longer eligi ble based on patient's age to complete this topic MMR Vaccines Aged Out No longer eligi ble based on patient's age to complete this topic Meningococcal ACWY Vaccine Aged Out N o longer eligible based on patient's age to complete this topic Meningococcal B Vacine Aged Out No lo nger eligible based on patient's age to complete this topic RSV Immunization Patients Under 20 months Aged Out No longer eligible b ased on patient's age to complete this topic Varicella Vaccines Aged Out No longer eligible based on patient's age to complete this topic Procedures Procedure Name Priority Date/Time Associated Diagnosis Comments [facility] SCREENING DIGITAL Routine 12/24/2021 10:12 AM EST Encounter for screening mammogram for malignant neoplasm of breast from Last 3 Months or Most Recently Relevant to Health Maintenance Results * [facility] SCREENING DIGITAL (12/24/2021 10:12 AM EST) Anatomical Region Laterality Modality Mammography 12/22/2021 1:54 PM EST Narrative 12/24/2021 10:[address] [facility] Diagnostic Imaging Department [address] [place] [address] [id number] Patient: ??MATT WATTERS ?/Age/Sex: 1960 - - F Unit#: ??[id number] ? Location/Status: ??SPDIMAM/REG CLI ? Mnemonic/Ordering Site: ??DIGSC/SPMAM Ordering Physician: ??GRACIELA ELLIS MD [facility] Screening Digital - 12/23/21 - 1054 INDICATION: SCREENING COMPARISON: Outside mammograms dating back to 05/30/2016 TECHNIQUE: CC and MLO views of the breasts were obtained, using full field digital mammography with 3D tomosynthesis views in the MLO projection. Left CC view is limited due to motion artifact. Computer aided detection with the Servoy 7.2-H was employed. FINDINGS: The breasts contain scattered fibroglandular tissues. No suspicious masses, suspicious microcalcifications, or areas of architectural distortion are identified. ??There are no secondary signs of breast malignancy. Benign-appearing breast calcifications are present bilaterally. IMPRESSION: ??No specific mammographic evidence of breast malignancy as visualized. Left cc view is limited due to motion artifact and should be repeated at no additional charge to the patient to complete screening evaluation. Lack of an imaging correlate should not deter or delay biopsy of a clinically significant palpable finding. BI-RADS ??- Category 0 - Incomplete needs additional imaging evaluation. [id number], 7025F ([id number] / [id number]) , ??[id number] Dictating Physician: ??KARL PUGH MD Electronically Signed by: ??KARL PUGH MD Dic Date/Time: ??12/24/21 1007 Sign date/Time: ??12/24/21 1012 Procedure Note Karl Pugh MD - 10/10/2022 [facility] Diagnostic Imaging Department [address] [place] [address] [id number] Patient: MATT WATTERS /Age/Sex: 1960 - 61 - F Unit#: [id number] Location/Status: SPDIMAM/REG CLI Mnemonic/Ordering Site: [facility] Ordering Physician: GRACIELA ELLIS MD [facility] Screening Digital - 12/23/21 - 1054 INDICATION: SCREENING COMPARISON: Outside mammograms dating back to 05/30/2016 TECHNIQUE: CC and MLO views of the breasts were obtained, using full field digital mammography with 3D tomosynthesis views in the MLO projection. Left CCview is limited due to motion artifact. Computer aided detection with the Servoy 7.2-H was employed. FINDINGS: The breasts contain scattered fibroglandular tissues. No suspicious masses, suspicious microcalcifications, or areas ofarchitectural distortion are identified. There are no secondary signs of breastmalignancy. Benign-appearing breast calcifications are present bilaterally. IMPRESSION: No specific mammographic evidence of breast malignancy as visualized. Left cc view is limited due to motion artifact and should be repeated atno additional charge to the patient to complete screening evaluation. Lack of an imaging correlate should not deter or delay biopsy of aclinically significant palpable finding. BI-RADS - Category 0 - Incomplete needs additional imaging evaluation.[id number], [id number] ([id number] / [id number]) , [id number] Dictating Physician: KARL PUGH MD Electronically Signed by: KARL PUGH MD Dic Date/Time: 12/24/21 1007 Sign date/Time: 12/24/21 1012 us Graciela Ellis MD IMG BI PROCEDURES Final Resu lt from Last 3 Months or Most Recently Relevant to Health Maintenance Advance Directives Documents on File Type Date Recorded Patient Acid Leveler Expl anation Health Care Decision (hx) 12/05/2018 AD QUIÑONES DIRECTIVE Health Care Decision (hx) 12/05/2018 AD QUIÑONES DIRECTIVE Health Care Decision (hx) 12/05/2018 AD QUIÑONES DIRECTIVE Health Care Decision (hx) 12/05/2018 AD QUIÑONES DIRECTIVE Health Care Decision (hx) 12/05/2018 AD QUIÑONES DIRECTIVE Health Care Decision (hx) 12/05/2018 AD QUIÑONES DIRECTIVE Health Care Decision (hx) 12/05/2018 AD QUIÑONES DIRECTIVE Health Care Decision (hx) 12/05/2018 AD QUIÑONES DIRECTIVE Health Care Decision (hx) 12/05/2018 AD QUIÑONES DIRECTIVE Health Care Decision (hx) 12/05/2018 AD QUIÑONES DIRECTIVE Health Care Decision (hx) 12/05/2018 AD QUIÑONES DIRECTIVE Health Care Decision (hx) 12/05/2018 AD QUIÑONES DIRECTIVE Health Care Decision (hx) 12/05/2018 AD QUIÑONES DIRECTIVE Health Care Decision (hx) 12/05/2018 AD QUIÑONES DIRECTIVE Health Care Decision (hx) 12/05/2018 AD QUIÑONES DIRECTIVE Health Care Decision (hx) 12/05/2018 AD QUIÑONES DIRECTIVE Health Care Decision (hx) 12/05/2018 AD QUIÑONES DIRECTIVE Health Care Decision (hx) 12/05/2018 AD QUIÑONES DIRECTIVE Health Care Decision (hx) 12/05/2018 AD QUIÑONES DIRECTIVE Health Care Decision (hx) 12/05/2018 AD QUIÑONES DIRECTIVE Health Care Decision (hx) 12/05/2018 AD QUIÑONES DIRECTIVE Health Care Decision (hx) 12/05/2018 AD QUIÑONES DIRECTIVE Health Care Decision (hx) 12/05/2018 AD QUIÑONES DIRECTIVE Health Care Decision (hx) 12/05/2018 AD QUIÑONES DIRECTIVE Health Care Decision (hx) 12/05/2018 AD QUIÑONES DIRECTIVE Health Care Decision (hx) 12/05/2018 AD QUIÑONES DIRECTIVE Health Care Decision (hx) 12/05/2018 AD QUIÑONES DIRECTIVE Health Care Decision (hx) 12/05/2018 AD QUIÑONES DIRECTIVE Health Care Decision (hx) 12/05/2018 AD QUIÑONES DIRECTIVE Health Care Decision (hx) 12/05/2018 AD QUIÑONES DIRECTIVE Health Care Decision (hx) 12/05/2018 AD QUIÑONES DIRECTIVE Health Care Decision (hx) 12/05/2018 AD QUIÑONES DIRECTIVE Health Care Decision (hx) 12/05/2018 AD QUIÑONES DIRECTIVE Health Care Decision (hx) 12/05/2018 AD QUIÑONES DIRECTIVE Health Care Decision (hx) 12/05/2018 AD QUIÑONES DIRECTIVE Health Care Decision (hx) 12/05/2018 AD QUIÑONES DIRECTIVE Health Care Decision (hx) 12/05/2018 AD QUIÑONES DIRECTIVE Health Care Decision (hx) 12/05/2018 AD QUIÑONES DIRECTIVE Health Care Decision (hx) 12/05/2018 AD QUIÑONES DIRECTIVE Health Care Decision (hx) 12/05/2018 AD QUIÑONES DIRECTIVE Health Care Decision (hx) 12/05/2018 AD QUIÑONES DIRECTIVE Health Care Decision (hx) 12/05/2018 AD QUIÑONES DIRECTIVE Health Care Decision (hx) 12/05/2018 AD QUIÑONES DIRECTIVE Health Care Decision (hx) 12/05/2018 AD QUIÑONES DIRECTIVE Health Care Decision (hx) 12/05/2018 AD QUIÑONES DIRECTIVE Health Care Decision (hx) 12/05/2018 AD QUIÑONES DIRECTIVE Care Teams Supervisor Customer Complaint Service Relationship Specialty Start Date End Date Wil Guerrero MD PCP - General Internal Medicine 10/11/20
== END 2024-12-25 13:06 | disposition home or self-care (01) ==
LOC: HO.RESP 13:05
PROVIDERS: PCP Internal Medicine; Visit Provider Hospitalist
DX: J41.1 Mucopurulent chronic bronchitis (principal)
CPT/HCPCS: 94010; 94640; 94727; 94729; 99212

== ENCOUNTER 2024-12-25 13:57 | Outpatient (AMB) | payer OTHER, SELFPAY ==
--- NOTE | 2024-12-25 13:59 | MHC.OFFVIS ---
Vital Signs 12/25/24 14:01 Height 5 ft 4 in Weight 166 lb 7.184 oz BMI 28.6 BP 122/88 Blood Pressure Location Rt brachial Position Sitting Pulse 86 Pulse Source Pulse Oximeter Pulse Oximetry (%) 97 Oxygen Delivery Method Room Air Intake Visit Reasons: Hx Lung CA Allergies nafcillin Adverse Reaction (Verified 12/25/24 14:06) Hives Penicillins Adverse Reaction (Verified 12/25/24 14:06) Hives HPI Comments Details: The patient is a 64 year woman with known history of COPD in addition to lung cancer status post resection back about 5 years ago. She is followed closely by thoracic surgery. She has had CT scans every 6 months for the last 5 years in no evidence of any recurrence. Therefore, she will continue to get CAT scans in a yearly basis now. The patient does complaint of dyspnea on exertion. Moderate severity. She also complains of productive cough with chest congestion. Seems to be getting worse. Sometimes it wakes her up at nighttime. she feels like her symptoms are worse when she is in her home. She is wondering if she could be having a reaction to something in the environment. She does not have good ventilation inside the apartment. She feels that this is causing her to have worsening respiratory symptoms. She has been on the Trelegy inhaler with good effect. She also has a rescue inhaler. She does not tolerate regular albuterol so therefore she does take levo albuterol with better response. She does have frequent exacerbations. When she does have an exacerbation she does respond well to prednisone. At this point the patient will be a great candidate for Daliresp. She has chronic bronchitis with multiple exacerbations. The Daliresp will help decrease her prednisone need and hopefully decrease the mucus burden inflammation of the airways. She can start with 250 mcg dose. She is aware of the side effects. And hopefully she can increase it to the 500 mcg dose in the future. She did have blood work done at [facility] which were reviewed. No evidence of any eosinophilia so therefore not a candidate for Dupixent at this time. One other option to consider is Ohtuvayre. 12/25/2024 the patient is here for a pulmonary follow-up visit. Overall she is doing well. She has started the Daliresp. 250 mcg. She is still using every other day. She is going to try to increase it to daily and then afterwards she can always call me so concerned with a therapeutic dose. She is also responding well to her respiratory inhalers. Still has some shortness breath with activity and cough but overall stable. She did undergo pulmonary function studies demonstrating only a mild amount of COPD. This is reassuring lung volumes are normal and diffusing capacity only mild decrease even after having her lung resection. She is also participating the lung cancer screening program still through [facility]. She will have CT scans to them. She will continue to participating in exercise program. Will plan to follow-up in 8-12 months. If she has any issues prior to that she will call for an earlier assessment. [facility] Medical History (Updated 12/27/24 @ 21:36 by Irvin Shepard MD) Dysphagia Dyspnea History of lung cancer COPD (chronic obstructive pulmonary disease) Social History (Updated 12/25/24 @ 14:05 by Nela Kahn CMA) Patient Tobacco Use Status: Former Tobacco user Review of Systems Const Denies fever(s) Eyes Reports no additional complaints ENT Reports dysphagia and Reports nasal congestion Card Denies chest pain and Reports dyspnea on exertion Resp Reports chest congestion, Reports cough, Reports dyspnea on exertion and Reports wheezing GI Reports dysphagia Musc Reports myalgias Skin/Breast Denies rash Endo Reports flushing and Reports heat intolerance Ralph/Lymph Reports no additional complaints Aller/Immun Reports wheezing Physical Exam Vital Signs: Last Vital Signs Pulse 86 12/25/24 14:01 BP 122/88 12/25/24 14:01 Pulse Ox 97 12/25/24 14:01 Oxygen Delivery Method Room Air 12/25/24 14:01 BMI result Body Mass Index 28.6 Const General: comfortable HEENT Head: Yes normocephalic Neck Neck: Yes supple Chest Chest palpation & inspection: normal inspection of the chest Resp Effort & Inspection: normal respiratory effort Auscultation: no rhonchi and diminished lung sounds Cardio Heart sounds: S1 normal heart sound present and S2 normal heart sound present GI Palpation (GI): Soft to palpation Skin General skin exam: no rashes or lesions noted Extrem Right upper extremity: no cyanosis Assessment & Plan Assessment & Plan (1) COPD (chronic obstructive pulmonary disease): Code(s): J44.9 - Chronic obstructive pulmonary disease, unspecified Category: Medical Qualifiers: COPD type: chronic bronchitis Chronic bronchitis type: mucopurulent Qualified Code(s): J41.1 - Mucopurulent chronic bronchitis (2) History of lung cancer: Code(s): Z85.118 - Personal history of other malignant neoplasm of bronchus and lung Category: Medical (3) Dyspnea: Code(s): R06.00 - Dyspnea, unspecified Category: Medical Qualifiers: Dyspnea type: dyspnea on exertion Qualified Code(s): R06.09 - Other forms of dyspnea (4) Dysphagia: Code(s): R13.10 - Dysphagia, unspecified Category: Medical Qualifiers: Dysphagia type: unspecified Qualified Code(s): R13.10 - Dysphagia, unspecified Plan Continue Trelegy ERICA (xopenex) as needed continue Daliresp 250mcg dose then should increase when able continue singulair LDCT barium swallow ipratropium nasal spray as needed F/U 6-8 months Orders: Orders FL barium swallow 12/25/24 K21.9 - Gastro-esophageal reflux disease without esophagitis Medications: New ipratropium bromide administer into each nostril 2 sprays intranasal TID PRN 15 mL 6RF allergy symptoms Coding Level of Care Code Est Pt Level 4 (35294) Diagnoses Mucopurulent chronic bronchitis J41.1 COPD type: chronic bronchitis Chronic bronchitis type: mucopurulent History of lung cancer Z85.118 Dyspnea on exertion R06.09 Dyspnea type: dyspnea on exertion Dysphagia, unspecified type R13.10 Dysphagia type: unspecified Time Spent (min) 17
[2024-12-25 14:01] VITALS: BP 122/88; PULSE 86; O2SAT 97; BMI 28.6
--- OUTSIDE RECORDS SUMMARY | 2024-12-25 15:37 | XMS_ITS | Clinical Summary ---
Author Organization [facility] Address [address] [place] [phone] Phone Care Team Providers Care Tire Builder Heavy Service Name Role Phone Wil Guerrero MD [...] EST) SODIUM 139 133 - 146 mmol/L [facility] CHLORIDE 103 96 - 108 mmol/L [facility] POTASSIUM 3.3 3.3 - 5.1 mmol/L [facility] CO2 22 21 - 35 mmol/L [facility] BUN 14 6 - 19 mg/dL [facility] CREATININE 0.90 0.5 - 1.5 mg/dL [facility] GLUCOSE 101(H) 70 - 99 mg/dL [facility] CALCIUM 8.8 8.4 - 10.3 mg/dL [facility] EGFR 72 >59 mL/min/1.7 3m2 [facility] Comment:Estimated glomerular filtration rate calculated using the CKD-EPI refit equation. ANION GAP 17 10 - 20 mmol/L [facility] Blood 11/18/2021 2:19 AM EST 11/18/2021 2:24 AM EST Beka Bella MD LAB BLOOD ORDERA [place] [facility] [address] [place] [address] from Last 3 Months or Most Recently Relevant to Health Maintenance Kerensallyrianna Penelope Personal/Famil y Self 1960 [address] [place] [address] Kerenvenkatesh Penelope Personal/Famil y Self 1960 [address] [facility] [place] [address] Duong Penelope Personal/Famil y Self 1960 [address] [facility] [place] [address] Kerenvenkatesh Penelope Personal/Famil y Self 1960 [address] [facility] [place] [address] Penelope Watters Personal/Famil y Self 1960 [address] [facility] [place] [address] Tala Watterseen Personal/Famil y Self 1960 [address] [facility] [place] [address] Penelope Watters Personal/Famil y Self 1960 [address] [facility] [place] [address] Penelope Watters Personal/Famil y Self 1960 [address] [facility] [place] [address] Care Teams Tire Builder Heavy Service Relationship Specialty Start Date End Date Wil Guerrero MD [address] [place] [address] PCP - General Internal Medicine 06/27/21 Additional Source Comments The information contained in this document represents components of the legal health record. It is not the complete legal health record.[facility]
--- OUTSIDE RECORDS SUMMARY | 2024-12-25 15:37 | XMS_ITS | Encounter Summary ---
Author Organization [facility] Address [address] [address] Phone Care Team Providers Care Hedis Abstractor Name Role Phone Wil Guerrero MD Primary Care Provider Encounter Details Date Type Department Care Team (Late st Contact Info) Description 11/18/2021 Procedure Pass [facility], Ct Scan - [address] [address] Social History Tobacco Use Types Packs/Day Years [...] on filedocumented in this encounter Care Teams Hedis Abstractor Relationship Specialty Start Date End Date Wil Guerrero MD [address] [place] [id number] PCP - General Internal Medicine 06/27/21 documented as of this encounter Additional Source Comments The information contained in this document represents components of the legal health record. It is not the complete legal health record.[facility]
--- OUTSIDE RECORDS SUMMARY | 2024-12-25 15:38 | XMS_ITS | Clinical Summary ---
Author Organization [facility] ity Address [address] [place] [address] Care Team Providers Care Digital Tech Name Role Phone Wil Guerrero MD Primary Care Provider [phone] Immunizations Name Administration Dates Next Due Pfizer SARS-CoV-2 COVID-19, mRNA, LNP-S, preservative free 01/01/2021 Surgical History Surgery Date Site/Laterality Comments HYSTERECTOMY PROCEDURE: HISTORICAL HYSTERECTOMY; COMMENT: cervical cancer OTHER SURGICAL HISTORY Right PROCEDURE: [facility] RESCJ&BRONCHOPLASTY PFRMD TM LOBEC/SGMECTOMY; COMMENT: RUL and RML ROTATOR CUFF REPAIR Right PROCEDURE: HISTORICAL ROTATOR CUFF REPAIR BREAST LUMPECTOMY Right PROCEDURE: HISTORICAL BREAST LUMPECTOMY; COMMENT: right and partial medial lumpectomy Medical History Medical History Date Comments Allergic rhinitis 05/20/2017 DX:Allergic rh initis COPD (chronic obstructive pu lmonary disease) ([facility]) 05/20/2017 DX:COPD (chronic obstructive pulmonary disease) ([facility]) Multiple environmental allergies 05/20/2017 DX:Multiple environmental allergies Tobacco user 05/20/2017 DX:Tobacco user Osteoporosis 11/05/2017 DX:Osteoporosis History of cervical cancer 11/05/2017 DX:Hi story of cervical cancer History of scarlet fever 11/05/2017 DX:Hist ory of scarlet fever Hypertension DX:Hypertension Hx of cancer of lung DX:Hx of ca ncer of lung Anxiety disorder DX:Anxiety diso rder Depression DX:Depression Primary insomnia DX:Primary inso mnia Lung cancer ([facility]) 01/15/2019 DX:Lung ca ncer ([facility]) Empyema of right pleural spa ce ([facility]) 01/23/2019 DX:Empyema of right pleural space [...] Procedure Name Priority Date/Time Associated Diagnosis Comments [facility] SCREENING DIGITAL Routine 12/24/2021 10:12 AM EST Encounter for screening mammogram for malignant neoplasm of breast from Last 3 Months or Most Recently Relevant to Health Maintenance Results * [facility] SCREENING [facility]IGITAL (12/24/2021 10:12 AM EST) Anatomical Region Laterality Modality Mammography 12/22/2021 1:54 PM EST Narrative 12/24/2021 10:12 AM EST [facility] Diagnostic Imaging Department [address] [place] [address] [id number] Patient: ??MATT WATTERS ?/Age/Sex: 1960 - - F Unit#: ??[id number] ? Location/Status: ??SPDIMAM/REG CLI ? Mnemonic/Ordering Site: [...] motion artifact. Computer aided detection with the PowerPractical 7.2-H was employed. FINDINGS: The breasts contain [...] additional imaging evaluation. 3340F, 7025F (G0202 / [id number]) , ??[id number] Dictating Physician: ??KARL PUGH MD Electronically Signed by: ??KARL PUGH MD Dic Date/Time: ??12/24/21 1007 Sign date/Time: ??12/24/21 1012 Procedure Note Karl Pugh MD - 10/10/2022 [facility] Diagnostic Imaging Department [address] [place] [address] [id number] Patient: MATT WATTERS /Age/Sex: 1960 - 61 - F Unit#: [id number] Location/Status: SPDIMAM/REG CLI Mnemonic/Ordering Site: [facility] Ordering Physician: GRACIELA ELLIS MD [facility] - 12/23/21 - 1054 INDICATION: SCREENING COMPARISON: Outside mammograms dating back to 05/30/2016 TECHNIQUE: CC and MLO views of the breasts were obtained, using full field digital mammography with 3D tomosynthesis views in the MLO projection. Left CCview is limited due to motion artifact. Computer aided detection with the PowerPractical 7.2-H was employed. 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
--- OUTSIDE RECORDS SUMMARY | 2024-12-25 15:38 | XMS_ITS | Clinical Summary ---
Author Organization [facility] Address [address] [place] [address] Care Team Providers Care Product Safety Professional Name Role Phone Wil Guerrero MD Primary Care Provider [phone] Allergies Active Allergy Reactions Criticality Noted Date [...] spray in each nostril daily. 0 Active Oghdpyv-Yvetfdrzkcw-O ormoterol (BREZTRI AEROSPHERE IN) Inhale into the [...] age to complete this topic Care Teams Product Safety Professional Relationship Specialty Start Date End Date Wil Guerrero MD [address] [place] [address] [address] [place] [id number] PCP - General Internal Medicine 04/21/19
== END 2024-12-25 14:26 | disposition home or self-care (01) ==
PROVIDERS: PCP Internal Medicine; Visit Provider Hospitalist
DX: J44.9 Chronic obstructive pulmonary disease, unspecified (principal)
CPT/HCPCS: 94060; 94727; 94729; 99214

== ENCOUNTER 2025-03-25 09:00 | Outpatient (REF) | payer OTHER, SELFPAY ==
--- NOTE | ~2025-03-25 | FL_ITS ---
EXAMINATION: XR BARIUM SWALLOW CLINICAL INFORMATION: Gastroesophageal reflux disease. COMPARISON: None available. TECHNIQUE: Routine barium swallow with barium, barium coated saltine crackers were performed in upright view. Thin barium was administered in prone lying position. FINDINGS: On oral administration of thick barium there is normal antegrade propagation of bolus from the oral cavity through the pharynx, esophagus into stomach without any evidence of obstruction, narrowing or stricture. Following oral administration of barium coated crackers there is normal oral mastication with propagation of bolus from the oral cavity, pharynx, esophagus into stomach. No obstruction narrowing seen. On placing patient prone lying and oral administration of thin barium there is good distention of the entire esophagus without any evidence of obstruction, narrowing or stricture. On supine view there is small sliding and hernia with mild reflux. FLUOROSCOPY TIME: 2 minutes and 15 seconds DOSE AREA PRODUCT: 1268 uGy-m2 (microgray-meter squared) FL/FL barium swallow IMPRESSION: Small sliding hiatal hernia with mild gastroesophageal reflux Electronically signed by: Billy Hanna MD 03/25/2025 02:35 PM EDT
--- OUTSIDE RECORDS SUMMARY | 2025-03-25 09:40 | XMS_ITS | Patient Health Record ---
Author Organization [facility] Address [address] [place] [id number] Care Team Providers Care Gas Jockey Name Role Phone Elizanick Wil Primary Care Provider ALLERGIES Allergen (clinical drug ingredient) Drug/Non Drug Allergy documented on EMR Reaction Allergy Type Onset Date Status nafcillin Nafcillin Sodium hives Drug Allergy Active RESULTS Component Value Reference Range Notes Urinalysis, Complete-[id number] Reviewed date:09/15/2024 08:54:25 AM Interpretation: Performing Lab:[facility], [employer] [facility], Phone - [phone], Director - MDJodry Notes/Report: Specific Irving 1.006 1.005-1.030 pH 7.0 5.0-7.5 Urine-Color Yellow [...] None seen/Few Yeast Trichomonas Comment Vitamin D, 41-Dlsdwcg-230395 Reviewed date:09/15/2024 08:54:25 AM Interpretation: Performing Lab:Ad[facility], [address] [facility] [place], [place], Phone - [phone], Director - MDJodry Notes/Report: Vitamin D, 25-Hydroxy 32.8 30.0-100.0 ng/mL Vitamin D deficiency has been defined by the [place] of [employer] and an Endocrine Society practice guideline as a level of serum 25-OH vitamin D less than 20 ng/mL (1,2). The Endocrine Society went on to further define vitamin D insufficiency as a level between 21 and 29 ng/mL (2). 1. IOM ([place] of [employer]). 2010. Dietary reference intakes for calcium and D. [place]: The National Academies Press. 2. Artur MF, Víctor MONTERO, Missael BOSS, et al. Evaluation, treatment, and prevention of vitamin D deficiency: an Endocrine Society clinical practice guideline. JCEM. 2010; 96(7):1911-30. TSH+Free [id number] Reviewed date:09/15/2024 08:54:25 AM Interpretation: Performing Lab:[facility], [employer] [facility], Phone - [phone], Director - MDKelleydry Notes/Report: TSH 1.990 0.450-4.500 uIU/mL T4,Free(Direct) 1.24 0.82-1.77 ng/dL Lipid Panel-[id number] Reviewed date:09/15/2024 08:54:25 AM Interpretation: Performing Lab:[facility], [employer] [facility], Phone - [phone], Director - MDdry Notes/Report: Cholesterol, Total 221 100-199 mg/dL Triglycerides 161 0-149 mg/dL HDL Cholesterol 56 >39 mg/dL VLDL Cholesterol Mynor 29 5-40 mg/dL LDL Chol Calc ([facility]) 136 0-99 mg/dL LDL Calc Comment: Comp. Metabolic Panel (13)-3 [id number] Reviewed date:09/15/2024 08:54:25 AM Interpretation: Performing Lab:[facility], [employer] [facility] [place], [place], Phone - [phone], Director - MDJodry Notes/Report: Glucose 85 70-99 [...] 0-40 IU/L CBC with Diff, Platelet, NLR -[id number] Reviewed date:09/15/2024 08:54:25 AM Interpretation: Performing Lab:[facility], [address], [place], Phone - [phone], Director - Valeria Notes/Report: WBC 6.9 3.4-10.8 x10E3/uL Effective September 21, 2024 profile [id number] WBC will be made non-orderable as a [...] osteoporosis as determined by WHO criteria. WSN: [id number] Ordering Physician: Wil Guerrero Dictated By: Carroll [...] Evaluation. Lay letter mailed to patient WSN: [id number] Ordering Physician: Wil Guerrero Dictated By: Trini De La Rosa MD US Breast Left Limited Reviewed date:12/31/2024 12:54:11 PM Interpretation: Performing Lab: Notes/Report: PROCEDURE: US Breast Left Limited INDICATION: Callback for assessment of 7 mm oval mass in the posterior lateral left breast 2-3:00 position, 7-19 cm from the nipple from screening mammogram 12/21/2024 COMPARISON: 12/21/2024 and multiple earlier studies TECHNIQUE: Targeted high-resolution ultrasound of left breast 2-3:00 region. FINDINGS: Correlating with the circumscribed mass mammographically, there is a 6.3 x 4.4 x 3.7 mm round anechoic cyst with no associated vascularity or shadowing. This is identified in the 2:00 position 8 cm from the nipple. No additional finding is present in the region. IMPRESSION: The well-defined mass mammographically corresponds to a cyst. Recommend return to screening. RECOMMENDATION: Annual mammographic screening BI-RADS: 2 (Benign) Lay letter not required (ultrasound only) WSN: [id number] Ordering Physician: Wil Guerrero Dictated By: Tirso Carrillo MD REASON FOR REFERRAL Reason Consultation - APPT REQUEST & SUPPORTING DOCS Diagnosis 1 Malignant neoplasm o f upper lobe of right lung (C34.11) Diagnosis 2 Chronic obstructive pulmonary disease, unspecified COPD type (J44.9) Referral Organization Wil Guerrero Md Referring Provider First Name Wil Referring Provider Last Name Yolanda Referring Provider Speciality Internal M edicine Referred Provider Specialty Pulmonary Di seases General Notes Manuela Carlson 02:55:08 PM EST > patient requested info be sent for referral for a new Trawl [employer] Maker Carlos Crystal 09/08/2024 03:33:19 PM EST > patient aware paperowrk sent she will call them directly to schedule Clinical Notes Dr. Irvin Palma , P:[phone] , F:[phone] Referral Priority Routine Reason Screening colonoscop y Diagnosis 1 Screening for colon cancer (Z12.11) Referral Organization Wil Guerrero Md Referring Provider First Name Wil Referring Provider Last Name Yolanda Referring Provider Speciality Internal edicine Referred Provider Specialty Gastroentero logy General Notes Argelia Castro 10:37:27 AM EST > Faxed to [facility] Clinical Notes [facility] Referral Priority Routine Reason EGD Diagnosis 1 Esophageal dysphagia (R13.19) Referral Organization Wil Guerrero Md Referring Provider First Name Wil Referring Provider Last Name Yolanda Referring Provider Speciality Internal edicine Referred Provider Specialty Gastroentero logy General Notes Argelia Castro 11:10:34 AM EDT > FaxedMatthew Kalise 02/04/2025 01:56:34 PM EDT > patient has appt 04/27 @ 1 pm with Angelica MORTON? Referral Priority Routine Referral Appointment Date 04/27/2025 Reason Screening colonoscop y Diagnosis 1 Screening for colon cancer (Z12.11) Referral Organization Wil Guerrero Md Referring Provider First Name Wil Referring Provider Last Name Yolanda Referring Provider Speciality Internal edicine Referred Provider Specialty Gastroentero logy General Notes Argelia Castro 11:10:47 AM EDT > FaxMatthew ponce Kalise 02/05/2025 08:29:00 AM EDT > PT scheduled for 04/27/25 @ 1pm Referral Priority Routine Referral Appointment Date 04/27/2025 MEDICATIONS Medication SIG (Take, Route, Frequency, Duration) Notes Start Date End Date Status Doxycycline Hyclate 100 MG 1 tablet Oral ly every 12 hrs for 30 days Active metroNIDAZOLE 0.75 % 1 application Exter eve Once a day for 90 Days Active Evenity 105 MG/1.17ML 2.34 ml Subcutaneo us once again for 365 days Active traZODone HCl 50 MG 1 tablet at bedtime as needed Orally Once a day for 30 day(s) Active Vitamin D3 50 MCG (1999) 1 capsule Or ally Once a day for 90 Days Active Trelegy Ellipta 200-62.5-25 MCG/ACT INHALE 1 PUFF BY MOUTH EVERY DAY Active Cyclobenzaprine HCl 5 MG TAKE 1 TABLET B Y MOUTH EVERY DAY AT BEDTIME NEEDED for 30 Active Vitamin B 12 250 MCG 2 tabs as directed Orally daily Active LORazepam 0.5 MG 1 tablet Orally Once a day for 30 days Active Furosemide 20 MG TAKE 1 TABLET BY MARIA GUADALUPE TH EVERY DAY for 90 Active Cyclobenzaprine HCl 10 MG 1 tablet as ne eded Orally 3 times a day for 14 days Active Pantoprazole Sodium 40 MG TAKE 1 TABLET BY MOUTH EVERY DAY for 90 Active Naproxen 500 MG 1 tablet with food o r milk as needed Orally Twice a day for 14 days Active Rosuvastatin Calcium 10 MG TAKE 1 TABLET BY MOUTH DAILY for 90 Active Alendronate Sodium 70 MG 1 tablet 30 min utes before the first food, beverage or medicine of the day with plain water Orally once a week Active Evenity 105 MG/1.17ML 2.34 mL Subcutaneo us for 30 day(s) Active traZODone HCl 50 MG TAKE 1 TABLET BY MARIA GUADALUPE TH DAILY AT BEDTIME NEEDED for 30 Active Montelukast Sodium 10 MG TAKE 1 TABLET B Y MOUTH EVERY DAY Active Trelegy Ellipta 200-62.5-25 MCG/ACT INHALE 1 PUFF BY MOUTH EVERY DAY for 30 Active LORazepam 0.5 MG TAKE 1 TABLET BY MARIA GUADALUPE TH EVERY DAY for 30 12/12/2024 Active Albuterol Sulfate HFA 108 (90 Base) MCG/ACT INHALE 1 PUFF BY MOUTH EVERY 4 HOURS NEEDED for 30 Active Prolia 60 MG/ML 1 injection Subcutan eous every 6 months Active Albuterol Sulfate (2.5 MG/3ML) 0.083% 3 ml as needed Inhalation every 8 hrs Active AeroChamber Plus Miky-Vu - as directed Ex ternally Four times a day for 30 days 08/02/2023 Active Furosemide 20 MG TAKE 1 TABLET BY MARIA GUADALUPE TH EVERY DAY FOR 90 DAYS Active Ventolin HFA 108 (90 Base) MCG/ACT 1 puff as needed Inhalation every 4 hrs Active Ipratropium [place] 0.06 % USE 2 SPRAYS IN EACH NOSTRIL 3 TIMES A DAY Active Losartan Potassium 100 MG TAKE 1 TABLET BY MOUTH EVERY DAY Active Singulair 10 MG 1 tablet Orally Once a day Active D3 Super Strength 50 MCG (2000 UT) TAKE 1 CAPSULE BY MOUTH EVERY DAYNOT COVERED BY INS Active Pantoprazole Sodium 40 MG TAKE 1 TABLET BY MOUTH EVERY DAY Active Cetirizine HCl 10 MG 1 tablet Orally Onc e a day for 90 Days 12/17/2022 Active Mometasone Furoate 0.1 % 1 application E xternally Once a day for 30 days 02/19/2025 Active Naproxen 500 MG TAKE 1 TABLET BY MARIA GUADALUPE TH TWICE DAILY WITH FOOD OR MILK FOR 14 DAYS NEEDED for 14 Active Roflumilast 500 MCG Oral for 30 Active Losartan Potassium 100 MG TAKE 1 TABLET BY MOUTH EVERY DAY for 90 Active IMMUNIZATIONS Vaccine Route Administration Date Status Comme nts *Influenza (Fluarix Quad) IM Intramuscular 09/09/2019 Admi nistered *Influenza (Fluarix Quad) IM Intramuscular 08/02/2020 Admi nistered *Influenza (Fluarix Quad) IM Intramuscular 08/15/2021 Admi nistered *Influenza (Fluarix Quad) IM Intramuscular 08/22/2022 Admi nistered *Influenza (Fluarix Quad) IM Intramuscular 07/25/2023 Admi nistered Influenza (Flucelvax Quad) Unknown 07/21/2024 Administe red Pneumococcal IM Intramuscular 05/03/2020 Administered Td (adult) Unknown 04/29/2020 Administered SOCIAL HISTORY Tobacco Use: Social History Observation [...] Problem Annual physical exam (Z00.00) Active confirmed 113719063 Problem Vitamin D deficiency (E55.9) Active confirmed 69804696 Problem Rosacea (L71.9) Active confirmed 455870 004 Problem Anxiety (F41.9) Active confirmed 396482 02 Problem COPD exacerbation (J44.1) Active confirmed 174197677 Problem Sacroiliitis (M46.1) Active confirmed 5 6503901 Problem Age-related osteoporosis without current pathological fracture (M81.0) Active confirmed 80754925 Problem Primary insomnia (F51.01) Active confirmed 1376488 Problem Mixed hyperlipidemia (E78.2) Active confirmed 406540102 Problem Essential hypertension (I10) Active confirmed 63803142 Problem Gastroesophageal reflux disease without esophagitis (K21.9) Active confirmed 691673468 Problem Chronic obstructive pulmonary disease, unspecified COPD type (J44.9) Active confirmed 98748320 Problem Spondylosis of lumbar region without myelopathy or radiculopathy (M47.816) Active confirmed 319203521 Problem Depression, unspecified depression type (F32.9) Active confirmed 03091559 Problem Malignant neoplasm of upper lobe of right lung (C34.11) Active confirmed 392557158 Problem Moderate episode of recurrent major depressive disorder (F33.1) Active confirmed 178045140 Problem Osteoporosis without current pathological fracture, unspecified osteoporosis type (M81.0) Active confirmed 62935208 Problem Allergic rhinitis, unspecified seasonality, unspecified trigger (J30.9) Active confirmed 35325378 Problem Major depressive disorder with single episode, in full remission (F32.5) Active confirmed 54269764 Problem Port-A-Cath in place (Z95.828) Active confirmed 438800124 Problem Aneurysm of ascending aorta without rupture (I71.21) Active confirmed 027202646 VITAL SIGNS Heart Rate 76 /min 03/22/2025 Oximetry 98 % 02/25/2025 Oxygen saturati on 96% on ambulation Blood pressure diastolic 80 mm Hg 03/22/2025 Height 64 in 03/22/2025 Blood pressure systolic 118 mm Hg 03/22/2025 Weight 162.2 lbs 03/22/2025 BMI 27.84 kg/m2 03/22/2025 Encounters Encounter Location Date Provider Diagnosis [facility] [address] [place] [address] 05/04/2024 Wil Guerrero Nonspecific low back pain M54.5 [facility] [address] [place] [address] 05/14/2024 Wil Guerrero Chronic obstructive pulmonary disease, unspecified [...] ; Sacroiliitis M46.1 and Muscle spasm M62.[address] [address] 06/03/[address] [address] 08/13/2024 Wil Guerrero Chronic obstructive pulmonary disease, unspecified [...] exam (CPE) Z00.00 and Primary insomnia F51.[address] [address] 09/08/2024 Wil Guerrero Chronic obstructive pulmonary disease, unspecified [...] Vitamin D deficiency E55.9 Wil Guerrero Md [address] [place] [phone] 09/14/2024 Wil Guerrero [address] [address] [facility] [address] 10/28/2024 Wil Guerrero Annual physical exam Z00.00 ; Mixed hyperlipidemia E78.2 ; Encounter for screening mammogram for malignant neoplasm of breast Z12.31 ; Osteoporosis without current pathological fracture, unspecified osteoporosis type M81.0 and Screening for colon cancer Z12.[address] [address] 02/04/2025 Wil Guerrero Chronic obstructive pulmonary disease, unspecified [...] Muscle spasm M62.838 ; Primary insomnia F51.01 ; Vitamin D deficiency E55.9 ; Esophageal dysphagia R13.19 and Screening for colon cancer Z12.[address] [address] 02/19/2025 Wil Guerrero Seborrheic dermatiti s L21.[address] [address] 02/25/2025 Wil deborah [address] [address] 02/25/2025 Wil Guerrero COPD exacerbation J4 4.[address] [address] 03/22/2025 Wil Guerrero Aneurysm of ascendin g aorta without rupture I71.21 ; Age-related osteoporosis without current pathological fracture M81.0 ; Chronic obstructive pulmonary disease, unspecified COPD type J44.9 ; Essential hypertension I10 ; Moderate episode of recurrent major depressive disorder F33.1 ; Malignant neoplasm of upper lobe of right lung C34.11 ; Gastroesophageal reflux disease without esophagitis K21.9 ; Allergic rhinitis, unspecified seasonality, unspecified trigger J30.9 ; Rosacea L71.9 ; Anxiety F41.9 ; Sacroiliitis M46.1 ; Muscle spasm M62.838 ; Primary insomnia F51.01 ; Vitamin D deficiency E55.9 and Esophageal dysphagia R13.19 ASSESSMENTS Encounter Date Diagnosis Assessment Notes Treatment Notes Treatment Clinical Notes 05/14/2024 Essential hypertensi on (ICD-10 - I10) 05/14/2024 Chronic obstructive pulmonary disease, unspecified COPD type (ICD-10 - J44.9) 05/04/2024 Nonspecific low back pain (ICD-10 - M54.5) 10/28/2024 Annual physical exam (ICD-10 - Z00.00) 10/28/2024 Mixed hyperlipidemia (ICD-10 - E78.2) 02/04/2025 Chronic obstructive pulmonary disease, unspecified COPD type (ICD-10 - J44.9) 09/08/2024 Chronic obstructive pulmonary disease, unspecified COPD type (ICD-10 - J44.9) 02/19/2025 Seborrheic dermatiti s (ICD-10 - L21.9) 02/25/2025 COPD exacerbation (ICD-10 - J44.1) 03/22/2025 Aneurysm of ascendin g aorta without rupture (ICD-10 - I71.21) 03/22/2025 Age-related osteoporosis without current pathological fracture (ICD-10 - M81.0) 08/13/2024 Chronic obstructive pulmonary disease, unspecified COPD type (ICD-10 - J44.9) 08/13/2024 Aneurysm of ascendin g aorta without rupture (ICD-10 - I71.21) 10/28/2024 Encounter for screening mammogram for malignant neoplasm of breast (ICD-10 - Z12.31) 03/22/2025 Chronic obstructive pulmonary disease, unspecified COPD type (ICD-10 - J44.9) 02/04/2025 Essential hypertensi on (ICD-10 - I10) 02/04/2025 Aneurysm of ascendin g aorta without rupture (ICD-10 - I71.21) 09/08/2024 Essential hypertensi on (ICD-10 - I10) 09/08/2024 Aneurysm of ascendin g aorta without rupture (ICD-10 - I71.21) 05/14/2024 Moderate episode of recurrent major depressive disorder (ICD-10 - F33.1) 08/13/2024 Essential hypertensi on (ICD-10 - I10) 03/22/2025 Essential hypertensi on (ICD-10 - I10) 08/13/2024 Moderate episode of recurrent major depressive disorder (ICD-10 - F33.1) 05/14/2024 Age-related osteoporosis without current pathological fracture (ICD-10 - M81.0) Prolia is not covered by insurance. 02/04/2025 Moderate episode of recurrent major depressive disorder (ICD-10 - F33.1) 10/28/2024 Osteoporosis without current pathological fracture, unspecified osteoporosis type (ICD-10 - M81.0) 09/08/2024 Moderate episode of recurrent major depressive disorder (ICD-10 - F33.1) 08/13/2024 Age-related osteoporosis without current pathological fracture (ICD-10 - M81.0) Prolia is not covered by insurance. 10/28/2024 Screening for colon cancer (ICD-10 - Z12.11) 03/22/2025 Moderate episode of recurrent major depressive disorder (ICD-10 - F33.1) 05/14/2024 Malignant neoplasm o f upper lobe of right lung (ICD-10 - C34.11) 09/08/2024 Age-related osteoporosis without current pathological fracture (ICD-10 - M81.0) Prolia is not covered by insurance. 02/04/2025 Age-related osteoporosis without current pathological fracture (ICD-10 - M81.0) Prolia is not covered by insurance. 08/13/2024 Malignant neoplasm o f upper lobe of right lung (ICD-10 - C34.11) 05/14/2024 Gastroesophageal reflux disease without esophagitis (ICD-10 - K21.9) 03/22/2025 Malignant neoplasm o f upper lobe of right lung (ICD-10 - C34.11) 02/04/2025 Malignant neoplasm o f upper lobe of right lung (ICD-10 - C34.11) 09/08/2024 Malignant neoplasm o f upper lobe of right lung (ICD-10 - C34.11) 02/04/2025 Gastroesophageal reflux disease without esophagitis (ICD-10 - K21.9) 08/13/2024 Gastroesophageal reflux disease without esophagitis (ICD-10 - K21.9) 09/08/2024 Gastroesophageal reflux disease without esophagitis (ICD-10 - K21.9) 03/22/2025 Gastroesophageal reflux disease without esophagitis (ICD-10 - K21.9) 05/14/2024 Allergic rhinitis, unspecified seasonality, unspecified trigger (ICD-10 - J30.9) 08/13/2024 Allergic rhinitis, unspecified seasonality, unspecified trigger (ICD-10 - J30.9) 05/14/2024 Rosacea (ICD-10 - L71.9) 09/08/2024 Allergic rhinitis, unspecified seasonality, unspecified trigger (ICD-10 - J30.9) 03/22/2025 Allergic rhinitis, unspecified seasonality, unspecified trigger (ICD-10 - J30.9) 02/04/2025 Allergic rhinitis, unspecified seasonality, unspecified trigger (ICD-10 - J30.9) 08/13/2024 Rosacea (ICD-10 - L71.9) 05/14/2024 Anxiety (ICD-10 - F41.9) 03/22/2025 Rosacea (ICD-10 - L71.9) 02/04/2025 Rosacea (ICD-10 - L71.9) 09/08/2024 Rosacea (ICD-10 - L71.9) 03/22/2025 Anxiety (ICD-10 - F41.9) 02/04/2025 Anxiety (ICD-10 - F41.9) 08/13/2024 Anxiety (ICD-10 - F41.9) 09/08/2024 Anxiety (ICD-10 - F41.9) 05/14/2024 Vitamin D deficiency (ICD-10 - E55.9) 03/22/2025 Sacroiliitis (ICD-10 - M46.1) 02/04/2025 Sacroiliitis (ICD-10 - M46.1) 05/14/2024 Sacroiliitis (ICD-10 - M46.1) 08/13/2024 Sacroiliitis (ICD-10 - M46.1) 09/08/2024 Sacroiliitis (ICD-10 - M46.1) 05/14/2024 Muscle spasm (ICD-10 - M62.838) 03/22/2025 Muscle spasm (ICD-10 - M62.838) 08/13/2024 Muscle spasm (ICD-10 - M62.838) 02/04/2025 Muscle spasm (ICD-10 - M62.838) 09/08/2024 Muscle spasm (ICD-10 - M62.838) 02/04/2025 Primary insomnia (ICD-10 - F51.01) 09/08/2024 Primary insomnia (ICD-10 - F51.01) 03/22/2025 Primary insomnia (ICD-10 - F51.01) 08/13/2024 Vitamin D deficiency (ICD-10 - E55.9) 09/08/2024 Vitamin D deficiency (ICD-10 - E55.9) 03/22/2025 Vitamin D deficiency (ICD-10 - E55.9) 08/13/2024 Laboratory tests ordered as part of a complete physical exam (CPE) (ICD-10 - Z00.00) 02/04/2025 Vitamin D deficiency (ICD-10 - E55.9) 02/04/2025 Esophageal dysphagia (ICD-10 - R13.19) 08/13/2024 Primary insomnia (ICD-10 - F51.01) 03/22/2025 Esophageal dysphagia (ICD-10 - R13.19) 02/04/2025 Screening for colon cancer (ICD-10 - Z12.11) 09/21/2024 Other This chart has been transcribed by a computerized dictation system. There are likely to be multiple digital sales representative inaccuracies despite chart review. 10/28/2024 Other This chart has been transcribed by a computerized dictation system. There are likely to be multiple digital sales representative inaccuracies despite chart review. 05/14/2024 Other This chart has been transcribed by a computerized dictation system. There are likely to be multiple digital sales representative inaccuracies despite chart review. 08/13/2024 Other This chart has been transcribed by a computerized dictation system. There are likely to be multiple digital sales representative inaccuracies despite chart review. 09/08/2024 Other This chart has been transcribed by a computerized dictation system. There are likely to be multiple digital sales representative inaccuracies despite chart review. 02/04/2025 Other This chart has been transcribed by a computerized dictation system. There are likely to be multiple digital sales representative inaccuracies despite chart review. 02/19/2025 Other This chart has been transcribed by a computerized dictation system. There are likely to be multiple digital sales representative inaccuracies despite chart review. 02/25/2025 Other This chart has been transcribed by a computerized dictation system. There are likely to be multiple digital sales representative inaccuracies despite chart review. 03/22/2025 Other This chart has been transcribed by a computerized dictation system. There are likely to be multiple digital sales representative inaccuracies despite chart review. This chart has been transcribed by a computerized dictation system. There are likely to be multiple digital sales representative inaccuracies despite chart review. PLAN OF TREATMENT [...] 06/12/2022 CBC (COMPLETE BLOOD COUNT) WITH DIFF CBC (COMPLETE BLOOD COUNT) WITH DIFF 02/2023 COMPREHENSIVE METABOLIC PANEL 06/12/2022 COMPREHENSIVE METABOLIC PANEL 07/25/2023 FOLIC ACID 06/12/2022 LIPID PANEL 06/12/2022 LIPID PANEL 07/25/2023 THYROID PANEL (TSH, FT4) 07/25/2023 THYROID PANEL (TSH, FT4) 06/12/2022 URINALYSIS, COMPLETE 07/25/2023 URINALYSIS, COMPLETE 06/12/2022 VITAMIN B12 06/12/2022 Pulmonary Rehab 08/16/2023 LP+Non-HDL Cholesterol-[id number] 02/04/2025 Hepatic Function Panel [phone] Hepatic Function Panel [phone] Lipid Panel-[id number] 10/28/2024 Next Appt Details Provider Name:Wil romero, 04/19/2025 02:00:00 PM, [address] [place] [address], [phone], Provider Name:Wil romero, 05/06/2025 11:00:00 AM, [address] [place] [address], [phone], Insurance Providers Payer Name Payer Address Payer Phone Subscriber Number Group Number Insured Name Patient Relationship to Insured Coverage Start Date Coverage End Date [facility] [address] [place] [address] [id number] Penelope Alonzo Self - patient is the insured MEDICATIONS ADMINISTERED Medication Instructions Date of Administration Dosage Notes Evenity 03/22/2025 210 ug MEDICAL (GENERAL) HISTORY Medical History History ICD [...]
== END 2025-03-25 09:01 | disposition home or self-care (01) ==
LOC: HO.XRAY 09:00
PROVIDERS: PCP Internal Medicine; Visit Provider Hospitalist
DX: K21.9 Gastro-esophageal reflux disease without esophagitis (principal)
CPT/HCPCS: 74220

== ENCOUNTER → 2025-03-25 09:57 | Outpatient (BNV) | payer OTHER, SELFPAY | PROVIDERS: PCP Internal Medicine; Visit Provider Radiology Diagnostic Radiology | DX: K44.9 Diaphragmatic hernia without obstruction or gangrene (principal) | CPT/HCPCS: 74246 ==

== ENCOUNTER 2025-06-30 12:56 | Emergency (ER) | payer OTHER, SELFPAY ==
--- OUTSIDE RECORDS SUMMARY | 2025-05-06 07:00 | XMS_ITS ---
Author Organization [facility] Address [address] [place] [phone] Care Team Providers Care Solar Energy Specialist Name Role Phone Wil Guerrero Primary Care Provider ALLERGIES Allergen (clinical drug ingredient) Drug/Non Drug Allergy documented on EMR Reaction Allergy Type Onset Date Status nafcillin Nafcillin Sodium hives Drug Allergy Active REASON FOR REFERRAL Reason Consultation Diagnosis 1 Sacroiliitis (M46.1) Referral Organization [facility] Referring Provider First Name Wil Referring Provider Last Name Yolanda Referring Provider Speciality Internal M edicine Referred Provider Specialty Pain Medicin e General Notes Argelia Castro 11:47:19 AM EDT > Faxed to Matthew varela Kal[facility] 05/13/2025 11:18:28 AM EDT > recieved the faxed has not reached out yet will be reaching out shortly , Argelia Castro 05/18/2025 02:22:36 PM EDT > pt has not been called yet , Argelia Castro 05/27/2025 09:41:11 AM EDT > Pt has not been scheduled they have called her twice and she has not called them back. She is coming in later I will give her the phone number then. , Argelia Castro 05/27/2025 10:21:12 AM EDT > PT has phone number and should be giving them a call. Clinical Notes Eduardo Intervpresley tional pain, PH: [phone], F: [phone] Referral Priority Routine REASON FOR VISIT (IN OFFICE), Follow Up MEDICATIONS Medication SIG (Take, Route, Frequency, Duration) Notes Start Date End Date Status Mometasone Furoate 0.1 % 1 application E xternally Once a day for 30 days 02/19/2025 Active Naproxen 500 MG TAKE 1 TABLET BY MARIA GUADALUPE TH TWICE DAILY WITH FOOD OR MILK FOR 14 DAYS NEEDED for 14 Active Roflumilast 500 MCG Oral for 30 Active Losartan Potassium 100 MG TAKE 1 TABLET BY MOUTH EVERY DAY for 90 Active Vitamin D3 50 MCG (1999 UT) TAKE 1 CAPSU LE BY MOUTH DAILY for 90 Active Cyclobenzaprine HCl 10 MG 1 tablet as ne eded Orally 3 times a day for 14 days Active traZODone HCl 50 MG 1 tablet at bedtime as needed Orally Once a day for 30 day(s) Active LORazepam 0.5 MG TAKE 1 TABLET BY MARIA GUADALUPE TH EVERY DAY for 30 12/12/2024 Active Cyclobenzaprine HCl 5 MG TAKE 1 TABLET B Y MOUTH EVERY DAY AT BEDTIME NEEDED for 30 Active Furosemide 20 MG TAKE 1 TABLET BY MARIA GUADALUPE TH EVERY DAY for 90 Active metroNIDAZOLE 0.75 % 1 application Exter eve Once a day for 90 Days Active LORazepam 0.5 MG 1 tablet Orally Once a day for 30 days Active Trelegy Ellipta 200-62.5-25 MCG/ACT INHALE 1 PUFF BY MOUTH EVERY DAY Active Naproxen 500 MG 1 tablet with food o r milk as needed Orally Twice a day for 14 days Active Albuterol Sulfate HFA 108 (90 Base) MCG/ACT INHALE 1 PUFF BY MOUTH EVERY 4 HOURS NEEDED for 30 Active Albuterol Sulfate (2.5 MG/3ML) 0.083% 3 ml as needed Inhalation every 8 hrs Active Ipratropium [place] 0.06 % USE 2 SPRAYS IN EACH NOSTRIL 3 TIMES A DAY Active Ventolin HFA 108 (90 Base) MCG/ACT 1 puff as needed Inhalation every 4 hrs Active Vitamin D3 50 MCG (1999 UT) 1 capsule Or ally Once a day for 90 Days Active Doxycycline Hyclate 100 MG 1 tablet Oral ly every 12 hrs for 30 days Active Vitamin B 12 250 MCG 2 tabs as directed Orally daily Active Losartan Potassium 100 MG TAKE 1 TABLET BY MOUTH EVERY DAY Active Pantoprazole Sodium 40 MG TAKE 1 TABLET BY MOUTH EVERY DAY Active Singulair 10 MG 1 tablet Orally Once a day Active Furosemide 20 MG TAKE 1 TABLET BY MARIA GUADALUPE TH EVERY DAY FOR 90 DAYS Active Montelukast Sodium 10 MG TAKE 1 TABLET B Y MOUTH EVERY DAY Active Rosuvastatin Calcium 10 MG 1 tablet Oral ly Once a day for 90 Days Active Prolia 60 MG/ML 1 injection Subcutan eous every 6 months for 180 days Active Calcium Carbonate-Vitamin D 600-10 MG-MCG 1 tablet with a meal Orally Once a day for 90 Days 05/06/2025 Active SOCIAL HISTORY Tobacco Use: Social History [...] less (1 point) Points 1 Interpretation Negative VITAL SIGNS Blood pressure systolic 124 mm Hg 05/06/20 25 Blood pressure diastolic 78 mm Hg 025 Heart Rate 74 /min 05/06/2025 Height 64 in 05/06/2025 Weight 161 lbs 05/06/2025 BMI 27.63 kg/m2 05/06/2025 Encounters Encounter Location Date Provider Diagnosis [address] [address] 05/06/2025 Wil Guerrero Sacroiliitis M46.1 ; Mixed hyperlipidemia E78.2 ; Osteoporosis without current pathological fracture, unspecified osteoporosis type M81.0 ; Essential hypertension I10 ; Aneurysm of ascending aorta without rupture I71.21 ; Chronic obstructive pulmonary disease, unspecified COPD type J44.9 ; Moderate episode of recurrent major depressive disorder F33.1 ; Age-related osteoporosis without current pathological fracture M81.0 ; Malignant neoplasm of upper lobe of right lung C34.11 ; Gastroesophageal reflux disease without esophagitis K21.9 ; Allergic rhinitis, unspecified seasonality, unspecified trigger J30.9 ; Rosacea L71.9 ; Anxiety F41.9 ; Muscle spasm M62.838 ; Primary insomnia F51.01 ; Esophageal dysphagia R13.19 and Vitamin D deficiency E55.9 ASSESSMENTS Encounter Date Diagnosis Assessment Notes Treatment Notes Treatment Clinical Notes Section Notes 05/06/2025 Sacroiliitis (ICD-10 - M46.1) 05/06/2025 Mixed hyperlipidemia (ICD-10 - E78.2) 05/06/2025 Osteoporosis without current pathological fracture, unspecified osteoporosis type (ICD-10 - M81.0) 05/06/2025 Essential hypertension (ICD-10 - I10) 05/06/2025 Aneurysm of ascending aorta without rupture (ICD-10 - I71.21) 05/06/2025 Chronic obstructive pulmonary disease, unspecified COPD type (ICD-10 - J44.9) 05/06/2025 Moderate episode of recurrent major depressive disorder (ICD-10 - F33.1) 05/06/2025 Age-related osteoporosis without current pathological fracture (ICD-10 - M81.0) Prolia is not covered by insurance. 05/06/2025 Malignant neoplasm of upper lobe of right lung (ICD-10 - C34.11) 05/06/2025 Gastroesophageal reflux disease without esophagitis (ICD-10 - K21.9) 05/06/2025 Allergic rhinitis, unspecified seasonality, unspecified trigger (ICD-10 - J30.9) 05/06/2025 Rosacea (ICD-10 - L71.9) 05/06/2025 Anxiety (ICD-10 - F41.9) 05/06/2025 Muscle spasm (ICD-10 - M62.838) 05/06/2025 Primary insomnia (ICD-10 - F51.01) 05/06/2025 Esophageal dysphagia (ICD-10 - R13.19) 05/06/2025 Vitamin D deficiency (ICD-10 - E55.9) 05/06/2025 Other This chart has been transcribed by a computerized dictation system. There are likely to be multiple terminologist inaccuracies despite chart review. PLAN OF TREATMENT Medication Medication Name Sig Start Date Stop Date Notes Cyclobenzaprine HCl 10 MG 1 tablet as ne eded Orally 3 times a day for 14 days traZODone HCl 50 MG 1 tablet at bedtime as needed Orally Once a day for 30 day(s) metroNIDAZOLE 0.75 % 1 application Exter eve Once a day for 90 Days LORazepam 0.5 MG 1 tablet Orally Once a day for 30 days Trelegy Ellipta 200-62.5-25 MCG/ACT INHALE 1 PUFF BY MOUTH EVERY DAY Naproxen 500 MG 1 tablet with food o r milk as needed Orally Twice a day for 14 days Albuterol Sulfate (2.5 MG/3M L) 0.083% 3 ml as needed Inhalation every 8 hrs Ipratropium [place] 0.06 % USE 2 SPRAYS IN EACH NOSTRIL 3 TIMES A DAY Ventolin HFA 108 (90 Base) MCG/ACT 1 puff as needed Inhalation every 4 hrs Vitamin D3 50 MCG (2000 UT) 1 capsule Or ally Once a day for 90 Days Doxycycline Hyclate 100 MG 1 tablet Oral ly every 12 hrs for 30 days Vitamin B 12 250 MCG 2 tabs as directed Orally daily Losartan Potassium 100 MG TAKE 1 TABLET BY MOUTH EVERY DAY Pantoprazole Sodium 40 MG TAKE 1 TABLET BY MOUTH EVERY DAY Singulair 10 MG 1 tablet Orally Once a day Furosemide 20 MG TAKE 1 TABLET BY MARIA GUADALUPE TH EVERY DAY FOR 90 DAYS Montelukast Sodium 10 MG TAKE 1 TABLET B Y MOUTH EVERY DAY Rosuvastatin Calcium 10 MG 1 tablet Oral ly Once a day for 90 Days Prolia 60 MG/ML 1 injection Subcutan eous every 6 months for 180 days Calcium Carbonate-Vitamin D 600-10 MG-MCG 1 tablet with a meal Orally Once a day for 90 Days 05/06/2025 Treatment Notes Assessment Notes Age-related osteoporosis wit hout current pathological fracture Prolia is not covered by insurance. Other This chart has been transcribed by a computerized dictation system. There are likely to be multiple terminologist inaccuracies despite chart review. Pending Test Test Name Order Date Hepatic Function Panel [id number] Lipid Panel-[id number] 05/06/2025 Referrals Referral Date Details Consultation Next Appt Details Follow Up: 3 Months, Reason: Follow-up [facility] Dr. Guerrero Provider Name:Wil romero, 08/12/2025 11:00:00 AM, [address] [place] [address], [phone], Progress Notes * Examination Category Sub-Category Detail Notes Category Not es General Examination GENERAL APPEARANCE: in no ac [place] distress, well developed, well nourished HEAD: normocephalic, atrau matic EYES: pupils equal, round, reactive to light and accommodation THROAT: clear, no erythema, uvula midline, no exudate NECK/THYROID: neck supple, no thyr omegaly, trachea midline, no carotid bruit HEART: no murmurs, regular rate and rhythm, S1, S2 normal LUNGS: clear to auscultatio n bilaterally ABDOMEN: soft, nontender, non distended, no organomegaly , bowel sounds present NEUROLOGIC: Lower extremity DTRs 2+ bilateral, SLR negative bilateral, gait normal SKIN: no suspicious lesion s, warm and dry EXTREMITIES: no clubbing, cyanosi s, or edema PERIPHERAL PULSES: normal, 2+ throughou t MUSCULOSKELETAL: Palpation of the lum bosacral spine tenderness over bilateral sacroiliac joints, paravertebral spasm present LYMPH NODES: no cervical, axillar y, supraclavicular or inguinal adenopathy PSYCH: cognitive function i ntact, mood/affect full range ORAL CAVITY: mucosa moist, no les ions, palate normal, tongue in midline, well papillated History and Physical Notes * HPI (History of Present Illness) Category Sub-Category Detail Notes Category Not es Symptom(s) 65-year-old fem ernie patient with history of lung cancer affecting right upper lobe and parts of the right middle lobe status post mediastinoscopy and lymph node sampling followed by resection of right upper lobe and part of the middle lobe, essential hypertension, anxiety, depression, COPD, is here for follow-up. Patient is compliant with her medications without any side effects. Her chronic respiratory symptoms are well-controlled on current medications. Patient's anxiety and depression is stable on current medications. Today she complains of worsening of her low back pain. She tells me that she is unhappy be doing the orthopedics and wants to see another orthopedic surgeon. I spent a the patient that her symptoms are most part of the due to sacroiliitis. I explained to the patient that he may stand a been a chance to see a rail car painter/sandblaster for possible cortisone injections to her sacroiliac joint. Our office will arrange an appointment for her. She also needs a letter from our office to get a better housing because her places to congestive and humid. We will try our best to help the patient. I discussed her lab results with her during the visit which show elevated total cholesterol and LDL. She has not been taking Crestor because she fears that it may interfere with her regular medications. I explained to her that she can take the medication anytime of the day. I advised her to stay on medication for 3 months and repeat her lipid panel and hepatic function test. Patient could not tolerate Evenity. I sent a prescription for Prolia and Caltrate D. Consultation Request Notes Referral Date Referring Provider Referred Provider Not es 05/06/2025 Wil Guerrero , Consultation
--- OUTSIDE RECORDS SUMMARY | 2025-05-18 07:30 | XMS_ITS ---
Author Organization [facility] Address [address] [place] [phone] Care Team Providers Care Grab Setter Name Role Phone Wil Guerrero Primary Care Provider REASON FOR VISIT (IN OFFICE), Follow Up (Evenity Inj) Encounters Encounter Location Date Provider Diagnosis [facility] [address] [phone] 05/18/20 Wil Guerrero PLAN OF TREATMENT Next Appt Details Provider Name:Wil romero, 08/12/2025 11:00:00 AM, [address] [place] [address], [phone],
--- OUTSIDE RECORDS SUMMARY | 2025-05-21 07:22 | XMS_ITS ---
[facility] Address [address] [place] [phone] Care Team Providers Care Flatware Maker Name Role Phone Wil Guerrero Primary Care Provider [phone] REASON FOR VISIT med MEDICATIONS Medication SIG (Take, Route, Fr equency, Duration) Notes Start Date End Date Status metroNIDAZOLE 0.75 % 1 application Exter eve Once a day for 90 Days Active Encounters Encounter Location Date Provider Diagnosis deborah Clements[address] [address] 05/21/2025 Wil Guerrero Rosacea L71.9 ASSESSMENTS Encounter Date Diagnosis Assessment Notes Treatment Notes Treatment Clinical Notes Section Notes 05/21/2025 Rosacea (ICD-10 - L71.9) PLAN OF TREATMENT Medication Medication Name Sig Start Date Stop Date Notes metroNIDAZOLE 0.75 % 1 application Exter eve Once a day for 90 Days Next Appt Details Provider Name:Wil romero, 08/12/2025 11:00:00 AM, [address] [place] [address], [phone],
--- OUTSIDE RECORDS SUMMARY | 2025-05-27 06:15 | XMS_ITS ---
Author Organization Yolanda Clements Address [address] [place] [phone] Care Team Providers Care Slurry Control Tender Name Role Phone Wil Guerrero Primary Care Provider [phone] ALLERGIES Allergen (clinical drug ingredient) Drug/Non Drug Allergy documented on EMR Reaction Allergy Type Onset Date Status nafcillin Nafcillin Sodium hives Drug Allergy Active REASON FOR VISIT (IN OFFICE), Sick Visit MEDICATIONS Medication SIG (Take, Route, Frequency, Duration) Notes Start Date End Date Status Furosemide 20 MG TAKE 1 TABLET BY MARIA GUADALUPE TH EVERY DAY FOR 90 DAYS Active Albuterol Sulfate (2.5 MG/3ML) 0.083% 3 ml as needed Inhalation every 8 hrs Active Ipratropium [place] 0.06 % USE 2 SPRAYS IN EACH NOSTRIL 3 TIMES A DAY Active Ventolin HFA 108 (90 Base) MCG/ACT 1 puff as needed Inhalation every 4 hrs Active Vitamin D3 50 MCG (2000 UT) 1 capsule Orally Once a day for 90 Days Active Losartan Potassium 100 MG TAKE 1 TABLET BY MOUTH EVERY DAY Active Pantoprazole Sodium 40 MG TAKE 1 TABLET BY MOUTH EVERY DAY Active Singulair 10 MG 1 tablet Orally Once a day Active Montelukast Sodium 10 MG TAKE 1 TABLET B Y MOUTH EVERY DAY Active Vitamin B 12 250 MCG 2 tabs as directed Orally daily Active Rosuvastatin Calcium 10 MG 1 tablet Oral ly Once a day for 90 Days Active Prolia 60 MG/ML 1 injection Subcutaneous every 6 months for 180 days Active Calcium Carbonate-Vitamin D 600-10 MG-MCG 1 tablet with a meal Orally Once a day for 90 Days 05/06/2025 Active metroNIDAZOLE 0.75 % 1 application Externally Once a day Active Mometasone Furoate 0.1 % 1 application Externally Once a day 02/19/2025 Active Naproxen 500 MG TAKE 1 TABLET BY MARIA GUADALUPE TH TWICE DAILY WITH FOOD OR MILK FOR 14 DAYS NEEDED for 14 Active Vitamin D3 50 MCG (1999 UT) TAKE 1 CAPSULE BY MOUTH DAILY for 90 Active Furosemide 20 MG TAKE 1 TABLET BY MARIA GUADALUPE TH EVERY DAY for 90 Active Roflumilast 500 MCG Oral for 30 Active Losartan Potassium 100 MG TAKE 1 TABLET BY MOUTH EVERY DAY for 90 Active Cyclobenzaprine HCl 10 MG 1 tablet as ne eded Orally 3 times a day for 14 days Active traZODone HCl 50 MG 1 tablet at bedtime as needed Orally Once a day for 30 day(s) Active Albuterol Sulfate HFA 108 (90 Base) MCG/ACT INHALE 1 PUFF BY MOUTH EVERY 4 HOURS NEEDED for 30 Active LORazepam 0.5 MG TAKE 1 TABLET BY MARIA GUADALUPE TH EVERY DAY for 30 12/12/2024 Active Cyclobenzaprine HCl 5 MG TAKE 1 TABLET B Y MOUTH EVERY DAY AT BEDTIME NEEDED for 30 Active Naproxen 500 MG 1 tablet with food o r milk as needed Orally Twice a day for 14 days Active Doxycycline Hyclate 100 MG 1 tablet Oral ly every 12 hrs for 30 days Not-Taking LORazepam 0.5 MG 1 tablet Orally Once a day for 30 days Active Trelegy Ellipta 200-62.5-25 MCG/ACT INHALE 1 PUFF BY MOUTH EVERY DAY Active SOCIAL HISTORY Tobacco [...] Interpretation Negative VITAL SIGNS Blood pressure systolic 120 mm Hg 05/27/20 25 Blood pressure diastolic 80 mm Hg 025 Heart Rate 76 /min 05/27/2025 Height 64 in 05/27/2025 Weight 164 lbs 05/27/2025 BMI 28.15 kg/m2 05/27/2025 Encounters Encounter Location Date Provider Diagnosis [facility], [address] [address] 05/27/2025 Wil Hakim Rosacea L71.9 and Pruritus L29.9 ASSESSMENTS Encounter Date Diagnosis Assessment Notes Treatment Notes Treatment Clinical Notes Section Notes 05/27/2025 Rosacea (ICD-10 - L71.9) 05/27/2025 Pruritus (ICD-10 - L29.9) 05/27/2025 Other This chart has been transcribed by a computerized dictation system. There are likely to be multiple review assistant inaccuracies despite chart review. PLAN OF TREATMENT Medication Medication Name Sig Start Date Stop Date Notes metroNIDAZOLE 0.75 % 1 application Exter eve Once a day Mometasone Furoate 0.1 % 1 application E xternally Once a day 02/19/2025 Treatment Notes Assessment Notes Other This chart has been transcribed by a computerized dictation system. There are likely to be multiple review assistant inaccuracies despite chart review. Next Appt Details Follow Up: as scheduled, [place] son: Provider Name:Wil romero, 08/12/2025 11:00:00 AM, [address] [place] [address], [phone], Progress Notes * Examination Category Sub-Category Detail Notes Category Not es General Examination GENERAL APPEARANCE: in no ac [place] distress, well developed, well nourished EYES: no pallor, sclera no n-icteric NECK/THYROID: neck supple, full ra nge of motion, no cervical lymphadenopathy HEART: RRR, no MRGs, no bea ma LUNGS: clear to auscultatio n bilaterally, normal respiratory effort SKIN: Hyperemic rash [facility] [place] in for LYMPH NODES: no palpable adenopat hy PSYCH: cognitive function i ntact, mood/affect full range ORAL CAVITY: mucosa moist History and Physical Notes * HPI (History [...] essential hypertension, anxiety, depression, COPD, is here complaining of worsening of her facial rash isn't itching. She has been using MetroGel at night. I advised the patient to continue with MetroGel at night and had mometasone in the morning. I had started the patient in the past on doxycycline to help with rosacea but she could not tolerate the medication. I think her that if she remains symptomatic and we can try minocycline or another antibiotic. Chronic conditions are under reasonable control on current medications.
--- OUTSIDE RECORDS SUMMARY | 2025-06-29 07:53 | XMS_ITS ---
Author Organization Y[facility]anda Clements Address [address] [place] [phone] Care Team Providers Care Telecom Engineer Name Role Phone Wil Guerrero Primary Care Provider REASON FOR VISIT Eye issue Encounters Encounter Location Date Provider Diagnosis [facility] [address] [phone] 06/29/20 Wil Guerrero PLAN OF TREATMENT Next Appt Details Provider Name:Wil romero, 08/12/2025 11:00:00 AM, [address] [place] [address], [phone],
--- NOTE | ~2025-06-30 | CT_ITS ---
EXAMINATION: CT ANGIOGRAM HEAD AND NECK CLINICAL INFORMATION: R/O retinal artery occusion,. COMPARISON: None available. TECHNIQUE: Noncontrast axial imaging of the head was performed. This was followed by test bolus sequences and head and neck intravenous bolus administration of 70mL of Omnipaque 350. Helical imaging was performed in the axial plane from the aortic arch to the skull vertex. The data was processed at the interventional radiology technologist's workstation for generation of MIP sequences. Angled MIPs and volume rendered reformatted images were also generated at an offline 3D workstation. Stenoses are assessed in accordance with NASCET criteria unless otherwise indicated. This CT examination was performed using dose optimization techniques as appropriate, variously including the following: *Automated exposure control *Adjustment of mA and/or kV according to patient size (this includes techniques or standardized protocols for targeted exams where dose is matched to indication/reason for exam; i.e. extremities or head) *Use of iterative reconstruction technique DLP: 1434 mGy*cm FINDINGS: NONCONTRAST HEAD CT: There is mild generalized atrophy. There is no evidence of intracranial hemorrhage or extra-axial fluid collection. There is no mass effect, or edema. No CT evidence of acute territorial infarct. Ventricles, sulci, and cisterns are normal in size and configuration for patient age. No hydrocephalus. No midline shift. No significant white matter abnormalities. Globes and orbital contents image normally. No extracranial soft tissue abnormalities. The paranasal sinuses, mastoid air cells, and tympanic cavities are normally aerated. No suspicious bony abnormalities. NECK CTA: -AORTIC ARCH: Normal in caliber. Mild atheromatous calcification. Three-vessel branching pattern. -GREAT VESSEL ORIGINS: Widely patent. No stenosis. -RIGHT COMMON CAROTID ARTERY: Normal in course and caliber to the level of the bifurcation. -CERVICAL RIGHT INTERNAL CAROTID ARTERY: Normal opacification without focal stenosis or occlusion. -LEFT COMMON CAROTID ARTERY: Normal in course and caliber to the level of the bifurcation. -CERVICAL LEFT INTERNAL CAROTID ARTERY: Normal in course and caliber to the level of the bifurcation. -CERVICAL RIGHT VERTEBRAL ARTERY: Codominant. Normal in course and caliber into the skull base. -CERVICAL LEFT VERTEBRAL ARTERY: Codominant. Normal in course and caliber into the skull base. OTHER, SOFT TISSUES: -No lymphadenopathy or mass. No abnormal fluid collection or soft tissue swelling. -Normal thyroid. -Imaged superior mediastinal structures normal. -Imaged lung apices demonstrate moderate changes of centrilobular and paraseptal emphysema. CTA OF THE BRAIN: -INTRACRANIAL INTERNAL CAROTID ARTERIES: No focal stenosis or occlusion. -RIGHT ANTERIOR CEREBRAL ARTERY: Normal A1 segment.. Normal arborization of the distal segments. -LEFT ANTERIOR CEREBRAL ARTERY: Normal A1 segment. Normal arborization of the distal segments. -ANTERIOR COMMUNICATING ARTERY: Normal. -RIGHT MIDDLE CEREBRAL ARTERY: Normal M1 segment of the MCA without focal stenosis or occlusion. Normal bifurcation. Normal arborization of the distal segments. -LEFT MIDDLE CEREBRAL ARTERY: Normal M1 segment of the MCA without focal stenosis or occlusion. Normal bifurcation. Normal arborization of the distal segments. -RIGHT VERTEBRAL ARTERY V4: Normal in course and caliber. -LEFT VERTEBRAL ARTERY V4: Normal in course and caliber. -BASILAR ARTERY: Normal without focal stenosis or occlusion. Normal appearance of the proximal superior cerebellar arteries. Normal basilar tip. -RIGHT POSTERIOR CEREBRAL ARTERY: Small P1 segment. Normal opacification of the distal CORROSION CONTROL ENGINEER segments. origin of the CORROSION CONTROL ENGINEER with robust opacification of the posterior communicating artery. Normal opacification of the distal CORROSION CONTROL ENGINEER segments. -LEFT POSTERIOR CEREBRAL ARTERY: The P1 segment is diminutive. origin of the CORROSION CONTROL ENGINEER with robust opacification of the posterior communicating artery. Normal opacification of the distal CORROSION CONTROL ENGINEER segments. -POSTERIOR COMMUNICATING ARTERIES: As above. Ophthalmic arteries: There is symmetric contrast enhancement. Grossly patent superior sagittal, straight, transverse, and sigmoid sinuses. CT/CT angio head neck IMPRESSION: NONCONTRAST HEAD CT: No intracranial hemorrhage or mass effect. No CT evidence of acute territorial infarct. CTA NECK: No hemodynamically significant stenosis. CTA HEAD: No hemodynamically significant stenosis. There is symmetric contrast enhancement of both ophthalmic arteries. Moderate changes consistent with emphysema. Results delivered to BLAYNE Jacobson via [place] text 5:25 PM ET 06/30/2025 Electronically signed by: Kevin Silverman MD 06/30/2025 05:25 PM EDT
[2025-06-30 13:07] VITALS: BP 148/105; PULSE 81; RESP 18; TEMP 37; O2SAT 97; BMI 27.0
--- NOTE | 2025-06-30 13:11 | ED.EYEPROB ---
HPI - Eye Problem General Chief complaint: Eye Problems Stated complaint: blood behind eye, vision loss. Time Seen by Provider: 06/30/25 13:28 Source: patient, RN notes reviewed and old records reviewed Mode of arrival: ambulatory Limitations: no limitations History of Present Illness ED Provider: OMAR Huston HPI Narrative: 65-year-old female with medical history of dysphagia, COPD, lung cancer in remission for 6 1/2 years presents to the ED for concerns of the right eye. Patient states 4 days ago Tuesday 06/26 patient was going to bed when she turned her bedside light on and noticed a ?splash? of color in her vision of the right eye. Patient states this discrepancy had continued and she called her primary care doctor on Saturday who told her to go to the ER to rule out a stroke. Patient states [facility] and waited 8 hours and left without being seen. Patient states she went to [facility] earlier this morning and was seen by an electronics computer mechanic had her eyes dilated and told her they noticed swelling and blood behind the right eye. The electronics computer mechanic sent her to retinal specialist in [place] and then called her back and told her she needed to go to the ER before seeing the specialist. Patient states she had a prior episode of this which happened last week and she took .5 of lorazepam and went to sleep and woke up with resolution of symptoms. Denies nausea, vomiting, headache, dizziness, lightheadedness Related Data Home Medications ?Medication ?Instructions ?Recorded ?Confirmed cetirizine 10 mg tablet (Zyrtec) 10 mg PO DAILY PRN 11/05/24 11/05/24 furosemide 20 mg tablet 20 mg PO DAILY 11/05/24 11/05/24 ipratropium bromide 42 mcg (0.06 2 spray intranasal BID 11/05/24 11/05/24 %) nasal spray lorazepam 0.5 mg tablet 0.5 mg PO DAILY PRN 11/05/24 11/05/24 losartan 100 mg tablet 100 mg PO DAILY 11/05/24 11/05/24 montelukast 10 mg tablet 10 mg PO DAILY 11/05/24 11/05/24 (Singulair) pantoprazole 40 mg tablet,delayed 40 mg PO DAILY 11/05/24 11/05/24 release rosuvastatin 10 mg tablet 10 mg PO DAILY 11/05/24 11/05/24 fluticasone fur. 200 mcg-umeclid inhalation DAILY 12/25/24 62.5 mcg-vilant 25 mcg inhalat.powder (Trelegy Ellipta) Previous Rx's ?Medication ?Instructions ?Recorded ipratropium bromide 42 mcg (0.06 2 spray intranasal TID PRN allergy 12/25/24 %) nasal spray symptoms #15 mL roflumilast 500 mcg tablet 500 mcg PO DAILY 30 days #30 tabs 01/25/25 levalbuterol tartrate 45 2 puff inhalation Q6H PRN 03/15/25 mcg/actuation aerosol inhaler shortness of breath or wheezing 30 (Xopenex HFA) days #15 grams Allergies Allergy/AdvReac Type Severity Reaction Status Date / Time nafcillin AdvReac Hives Verified 06/30/25 13:07 Penicillins AdvReac Hives Verified 06/30/25 13:07 Review of Systems Review of Systems: CONST: Negative for fever, body aches and chills. HENT: Negative for neck pain/stiffness, headache, congestion, sore throat, swelling. POS blurred vision with purple non moving splash in vision field EYES: Negative for discharge/pain or vision changes. RESP: Negative for cough/hemoptysis and shortness of breath. CV: Negative chest pain, difficulty breathing, palpitations. ABD: Negative pain, nausea, vomiting. : Negative increase frequency, dysuria, blood in urine or stool. MUSC: Negative for muscle aches, edema. SKIN: Negative rash, lesions/sores. NEURO: Negative headache, dizziness, weakness. Yes all other systems are reviewed and are negative [facility] Past Medical History Attestation statement: The following information was validated with the patient. Source: old records reviewed and nursing notes reviewed Medical History (Updated 06/30/25 @ 18:04 by Emigdio Coy) Dysphagia Dyspnea History of lung cancer COPD (chronic obstructive pulmonary disease) Social History Social History (Updated 12/25/24 @ 14:05 by Nela Kahn [facility]) Patient Tobacco Use Status: Former Tobacco user Physical Exam Vital Signs: Vital Signs: Last Vital Signs Temp 98.6 F 06/30/25 18:15 Pulse 89 06/30/25 18:15 Resp 20 06/30/25 18:15 BP 149/98 H 06/30/25 18:15 Pulse Ox 98 06/30/25 18:15 O2 Del Method Room Air 06/30/25 16:13 BMI result Body Mass Index 27.0 GENERAL APPEARANCE: ?AxOx4, generally well-appearing, no acute distress. HEENT: ?NC, AT. MMM. EOMI, clear conjunctiva, oropharynx clear. Pupils reactive to accommodation and consensual light reflex, without pain on ocular movements. NECK: ?Supple without lymphadenopathy.? No stiffness or restricted ROM. HEART:? Normal rate and regular rhythm, normal S1/S2, no m/r/g LUNGS:? CTAB, moving air well. No crackles or wheezes are heard. ABDOMEN: ?Soft, nontender, nondistended with good bowel sounds heard. BACK: No CVAT, no obvious deformity. EXTREMITIES: ?Without cyanosis, clubbing or edema. NEUROLOGICAL: ?Grossly nonfocal. Alert and oriented, moving all 4 extremities. Observed to ambulate with normal gait. Skin: ?Warm and dry without any rash. Course Course Course Narrative: This is a Rapid Medical Examination (RME) performed by Tyree Cabello PA-C in triage. Full HPI, ROS, assessment and treatment plan per primary provider in the Main ED. Hx: 65 yo F here for eval of vision changes to right eye x days. went to [facility] yesterday for same, sat in for 8 hours without work up. was seen by eye doctor this morning, had dilated eye exam and was told there was swelling/blood in the eye and was concerned about something with my retina . reports pressure to temples. Plan: labs, inflammatory markers, imaging deferred to primary provider Tina Dodson PA-C ---> Spoke with amber [place] for Dr. Goodwin at her opthamologist who states that the patient has R papillary edema, peripheral retinal hemorrhage, and concern for retinal occlusion. Also states that the patient has temporal tenderness concerning for temporal arteritis. States that patient was sent to a retinal specialist who recommended ER evaluation first with a CT of the orbits + head to rule out retinal occlusion as well as CBC, CMP, ESR, and CRP. Recommends discharge home if work up is negative and following up with the retinal specialist. Reevaluation(s) Reevaluation #1: patient received in sign-out at change of shift pending CT angiography to evaluate for retinal artery occlusion versus aneurysm. There is symmetric contrast in both retinal arteries, this is not indicative of retinal artery occlusion or aneurysm. I discussed this with the patient. Her symptoms have been stable for the last 4 days. My colleague did speak to Cassy at [facility] and the patient does seem to have appropriate follow up with a retinal specialist tomorrow. The patient is stable for discharge. I did ask the patient to call [facility] [place] tomorrow morning 1st thing in the morning to find out where to go to see the retinal specialist tomorrow Time: 18:02 Medications Administered Discontinued Medications Generic Name Dose Route Start Last Admin Trade Name Freq PRN Reason Stop Dose Admin Diazepam 5 mg 06/30/25 16:06 06/30/25 16:15 Diazepam 10 Mg/2 Ml Cartridge IVPUSH 06/30/25 16:07 5 mg STAT STA Administration Lactated Ringer's 1,000 mls @ 999 mls/hr 06/30/25 15:43 06/30/25 18:09 Lr IV 06/30/25 16:43 Infused .Q1H1M ONE Infusion Acetaminophen 1,000 mg in 100 mls @ 400 mls/hr 06/30/25 15:43 06/30/25 18:09 Ofirmev IV 06/30/25 15:57 Infused ONCE ONE Infusion Iohexol 100 ml 06/30/25 16:58 06/30/25 16:58 Iohexol 350 Mg/Ml 100 Ml Infus..Btl IV 06/30/25 16:59 70 ml ONCE ONE Administration Medical Decision Making Medical Decision Making MDM Narrative: 65-year-old female medical history of dysphagia, COPD, lung cancer in remission for 6 1/2 years presents to the ED by recommendation of her electronics computer mechanic who dilated her eyes this morning and found right-sided papilledema, right optic disc edema, and was worried for retinal arterial occlusion and temporal arteritis. Patient currently experiencing a ?splash? of purple color in the vision field of her right eye, no pain with extraocular movements, no nystagmus on exam, no pain with palpation of the eye. Completion Manager sent to the ED for CT a head and neck for further evaluation. Plan: Labs, CTA head and neck Course 17:20- Labs unremarkable, ESR WNL at 12, CRP WNL at 0.13 - less anne-marie giant cell arteritis Patient was unable to tolerate imaging, she was medicated with IV fluids, 1 g IV Tylenol, 5 mg IV Valium. Currently awaiting CTA head and neck results to evaluate for retinal artery occlusion. If negative, patient can discharge home with explicit instructions from electronics computer mechanic who evaluated her today to follow up with retinal specialist. Patient being signed out to my colleague OMAR Coy who will resume care of the patient. She understands this change of care. Differential Diagnosis Differential Diagnoses: The differential diagnosis associated with the presentation includes Retinal artery occlusion Giant cell arteritis Retinal artery spasm Migraine with vasospasm Stroke Admission/Observation Consideration of admission/observation: Escalation of care including admission/observation considered Lab Data 06/30/25 13:22 06/30/25 13:22 Labs: Lab Results 06/30/25 Range/Units 13:22 WBC 7.1 (4.8-10.8) X10*3/uL RBC 4.60 (4.20-5.50) X10*6/uL Hgb 14.1 (12.0-16.0) g/dl Hct 40.1 (37.0-47.0) % MCV 87.2 (80.0-98.0) fL MCH 30.7 (27.0-33.0) pg MCHC 35.2 H (31.0-35.0) g/dl RDW 12.5 (11.0-16.0) % Plt Count 315 (160-400) X10*3/uL MPV 9.4 (9.4-12.3) fL Immature Gran % (Auto) 0.1 (0.0-0.4) % Neut % (Auto) 65.3 (45-73) % Lymph % (Auto) 24.5 (20-40) % [place] % (Auto) 8.0 (2-11) % Eos % (Auto) 1.3 (0-4) % Baso % (Auto) 0.8 (0-2) % Lymph # (Auto) 1.7 (1.2-4.9) X10*3/uL [place] # (Auto) 0.6 (0.1-1.2) X10*3/uL Eos # (Auto) 0.1 (0.0-0.4) X10*3/uL Baso # (Auto) 0.1 (0.0-0.2) X10*3/uL Abs Immat Gran (auto) 0.01 (0.00-0.03) X10*3/uL Absolute Neuts (auto) 4.6 (2.0-8.3) x10*3/uL Absolute Nucleated RBC 0.000 (0.0-0.012) X10*3/uL Nucleated RBC % (auto) 0.0 (0.0-0.2) /100WBC ESR 12 (0-20) MM/HR Sodium 142 (135-145) mmol/L Potassium 4.0 (3.3-5.1) mmol/L Chloride 108 (96-108) mmol/L Carbon Dioxide 24 (22-29) mmol/L Anion Gap 14 (12-20) BUN 15 (9-16) mg/dL Creatinine 0.70 (0.5-1.4) mg/dL Estim Creat Clear Calc 79.4 Estimated GFR > 60 Random Glucose 92 (60-115) mg/dL Calcium 9.4 (8.4-10.2) mg/dL Magnesium 1.9 (1.6-2.6) mg/dL Total Bilirubin 0.3 (0.0-1.0) mg/dL AST 19 (5-31) U/L ALT 18 (0-31) U/L Alkaline Phosphatase 155 H (39-117) U/L C-Reactive Protein 0.13 (< or = 0.50) mg/dL Total Protein 7.0 (6.5-8.0) g/dL Albumin 4.6 (3.5-5.0) g/dL Discharge Plan Discharge Clinical Impression: Eye abnormality Patient Disposition: Home, Self-Care Instructions: Surgery for Retinal Detachment (DC) Additional Instructions: the CT scan that you had performed in the ER today does not show any evidence of retinal artery occlusion or aneurysm. your blood work shows a normal ESR and CRP, this is not likely to be temporal arteritis call your electronics computer mechanic 1st thing in the morning at 8:00 a.m. to make sure you have an appointment with the retinal specialist tomorrow. Return for new or worsening symptoms Prescriptions: No Action roflumilast 500 mcg tablet 500 mcg PO DAILY 30 Days Qty: 30 11RF levalbuterol tartrate [Xopenex HFA] 45 mcg/actuation HFA aerosol inhaler 2 puff inhalation Q6H PRN (Reason: shortness of breath or wheezing) 30 Days Qty: 15 11RF losartan 100 mg tablet 100 mg PO DAILY pantoprazole 40 mg tablet,delayed release (DR/EC) 40 mg PO DAILY montelukast [Singulair] 10 mg tablet 10 mg PO DAILY furosemide 20 mg tablet 20 mg PO DAILY cetirizine [Zyrtec] 10 mg tablet 10 mg PO DAILY PRN ipratropium bromide 42 mcg (0.06 %) spray,non-aerosol 2 spray intranasal BID Rx Instructions: administer into each nostril lorazepam 0.5 mg tablet 0.5 mg PO DAILY PRN rosuvastatin 10 mg tablet 10 mg PO DAILY Trelegy Ellipta 200-62.5-25 mcg blister with device inhalation DAILY ipratropium bromide 42 mcg (0.06 %) spray,non-aerosol 2 spray intranasal TID PRN (Reason: allergy symptoms) Qty: 15 6RF Rx Instructions: administer into each nostril Interventions: ED Discharge Assessment Last Done: 06/30/25 18:15 Discharge Date/Time: 06/30/25 18:15 Print Language: Urdu
[2025-06-30 13:26] LABS: MANUAL DIFF FLAG NO
[2025-06-30 13:36] LABS: Hematocrit 40.1 % (37.0-47.0); Hemoglobin 14.1 g/dl (12.0-16.0); Imm Gran Abs Auto 0.01 X10*3/uL (0.00-0.03); Imm Gran Pct Auto 0.1 % (0.0-0.4); Lymphocytes Absolute Auto 1.7 X10*3/uL (1.2-4.9); Mean Corpuscular HGB Conc 35.2 g/dl (31.0-35.0); Mean Corpuscular Hemoglobin 30.7 pg (27.0-33.0); Mean Corpuscular Volume 87.2 fL (80.0-98.0); NRBC Abs Auto 0.000 X10*3/uL (0.0-0.012); NRBC Pct Auto 0.0 /100WBC (0.0-0.2); Platelet Count 315 X10*3/uL (160-400); Red Blood Count 4.60 X10*6/uL (4.20-5.50); White Blood Count 7.1 X10*3/uL (4.8-10.8)
[2025-06-30 13:49] VITALS: BP 154/95; PULSE 82; RESP 18; O2SAT 95
[2025-06-30 13:54] LABS: Alanine Aminotransferase 18 U/L (0-31); Albumin Level 4.6 g/dL (3.5-5.0); Alkaline Phosphatase 155 U/L (39-117); Anion Gap 14 (12-20); Aspartate Amino Transferase 19 U/L (5-31); Blood Urea Nitrogen 15 mg/dL (9-16); Calcium 9.4 mg/dL (8.4-10.2); Carbon Dioxide 24 mmol/L (22-29); Chloride 108 mmol/L (96-108); Creatinine Clr Calc Pharmacy 79.4; Estimated Glomerular Filt Rate > 60; Magnesium 1.9 mg/dL (1.6-2.6); Potassium 4.0 mmol/L (3.3-5.1); Sodium 142 mmol/L (135-145); Total Protein 7.0 g/dL (6.5-8.0)
[2025-06-30 16:13] VITALS: BP 149/98; PULSE 89; RESP 20; O2SAT 98
[2025-06-30] MEDS: diazePAM 10 MG/2 ML CARTRIDGE 5 MG IVPUSH (16:15)
[2025-06-30] MEDS: Lactated Ringers 1,000 ML 999 ML IV (16:16)
[2025-06-30] MEDS: iohexoL 350 MG/ML 100 ML INFUS..BTL IV (16:58)
--- OUTSIDE RECORDS SUMMARY | 2025-06-30 17:17 | XMS_ITS | Clinical Summary ---
Author Organization [facility] Address [address] [address] Phone Care Team Providers Care Plant Worker Name Role Phone Wil Guerrero MD Primary Care Provider Allergies Active Allergy Reactions Criticality Noted Date Comments Nafcillin Rash High 01/22/2019 Other reaction(s): Hives/Urticaria Medications losartan (COZAAR) 100 MG tablet Take 100 [...] tablet Take 10 mg by mouth. Active umeclidinium-alba anteroL (ANORO ELLIPTA) 62.5-25 mcg/actuation diskus inhaler Inhale [...] with a working camera? Not on file Comments Unknown Sex and Gender Information Value Date Recorded Sex Assigned at Female 04/22/2021 9:45 AM EDT Legal Sex Female 12:32 PM EDT Gender Identity Female 04/22/2021 9:45 AM EDT Sexual Orientation Straight 04/22/2021 9: 45 AM EDT Last Filed Vital Signs Vital Sign Reading Time Taken Comments Blood Pressure 115/76 11/18/2021 5:06 AM EST Pulse 89 11/18/2021 5:06 AM EST Temperature 37 C (98.6 F) 11/18/2021 5:06 AM EST Respiratory Rate 18 [...] DEPRESSION SCREENING 1971 HEPATITIS C SCREENING 1977 MAMMOGRAM 1999 COLOGUARD 2004 COLONOSCOPY 2004 COLORECTAL CANCER SCREENING 2004 FIT TEST 2004 FOBT 2004 SIGMOIDOSCOPY 2004 VIRTUAL COLONOSCOPY 2004 ZOSTER VACCINES (1 of 2) 2009 PNEUMOCOCCAL VACCINES (50+ years) (2 of 2 - PCV) 05/03/2021 05/03/2020 CREATININE LEVEL 11/18/2022 11/18/2021, 04/22/2021 POTASSIUM LEVEL 11/18/2022 11/18/2021, 04/22/2021 OSTEOPOROSIS SCREENING INITI AL (ONE-TIME) 2024 INFLUENZA VACCINE (#1) 2025 0, 09/09/2019, 10/16/2016 COVID-19 VACCINE (3 - 2024-2 6 season) 2025 01/23/2021, 01/01/2021 Adult Td,Tdap Booster 04/29/2030 04/29/2020 [...] age to complete this topic MENINGOCOCCAL VACCINES (B) Aged Out N o longer eligible based on patient's age to complete this topic Medical Devices Not on file Procedures Procedure Name Priority Date/Time Associated Diagnosis Comments BASIC METABOLIC PANEL STAT 11/18/2021 2:19 AM EST from Last 3 Months or Most Recently Relevant to Health Maintenance Results * (ABNORMAL) Basic metabolic panel (11/18/2021 2:19 AM EST) SODIUM 139 133 - 146 mmol/L [facility] CHLORIDE 103 96 - 108 mmol/L [facility] POTASSIUM 3.3 3.3 - 5.1 mmol/L [facility] CO2 22 21 - 35 mmol/L [facility] BUN 14 6 - 19 mg/dL [facility] CREATININE 0.90 0.5 - 1.5 mg/dL [facility] GLUCOSE 101(H) 70 - 99 mg/dL [facility] CALCIUM 8.8 8.4 - 10.3 mg/dL [facility] EGFR 72 >59 mL/min/1.7 3m2 [facility] Comment:Estimated glomerular filtration rate calculated using the CKD-EPI refit equation. ANION GAP 17 10 - 20 mmol/L [facility] Blood 11/18/2021 2:19 AM EST 11/18/2021 2:24 AM EST us Beka Bella MD LAB BLOOD ORDERABLES Fin al Result [facility] [address] [place] [address] from Last 3 Months or Most Recently Relevant to Health Maintenance Insurance MEDICARE PART A & B [facility] MEDICARE PART A & B HEALTH MEDICARE PART A & B [place] & [place] & B HEALTH MEDICARE PART A & B HEALTH MEDICARE PART A & B MEDICARE PART A & B [facility] Care Teams Plant Worker Relationship Specialty Start Date End Date Wil Guerrero MD [address] [place] [id number] PCP - General Internal Medicine 06/27/21 Additional Source Comments The information contained in this document represents components of the legal health record. It is not the complete legal health record.[facility]
--- OUTSIDE RECORDS SUMMARY | 2025-06-30 17:17 | XMS_ITS | Encounter Summary ---
Author Organization [facility] Address [address] [facility] [address] [place] [phone] Phone Care Team Providers Care Controls Engineer Name Role Phone Wil Guerrero MD Primary Care Provider Encounter Details Date Type Department Care Team (Late st Contact Info) Description 11/18/2021 Procedure Pass [facility], Ct Scan - [address] [id number] Social History Tobacco Use Types Packs/Day Years Used Date Smoking Tobacco: Never Smokeless Tobacco: Never Alcohol Use Standard Drinks/Week Comments Yes 2 (1 standard drink = 0.6 oz pur e alcohol) occasionally Comments Unknown Sex and Gender Information Value Date Recorded Sex Assigned at Female 04/22/2021 9:45 AM EDT Legal Sex Female 12:32 PM EDT Gender Identity Female 04/22/2021 9:45 AM EDT Sexual Orientation Straight 04/22/2021 9: 45 AM EDT documented as of this encounter Functional Status * Calculated C-SSRS Risk Score (Lifetime/Recent) Answer Date of Assessment Author No Risk Indicated 11/18/2021 2:05 AM Maryann Gilliland RN * [place] Suicide Severity Rating Scale (Screener/Recent Self-Report) Question Answer Date of Assessment Author 1. Wish to be (Past 1 Month) No 022 2:05 AM Maryann Gilliland, RN 2. Non-Specific Active Suici blair Thoughts (Past 1 Month) No 11/18/2021 2:05 AM Juan Gilliland RN 6. Suicidal Behavior (Lifetime) No 2:05 AM Maryann Gilliland RN documented as of this encounter Plan of Treatment Not on file documented as of this encounter Visit Diagnoses Not on filedocumented in this encounter Care Teams Controls Engineer Relationship Specialty Start Date End Date Wil Guerrero MD [address] [place] [id number] PCP - General Internal Medicine 06/27/21 documented as of this encounter Additional Source Comments The information contained in this document represents components of the legal health record. It is not the complete legal health record.[facility]
--- OUTSIDE RECORDS SUMMARY | 2025-06-30 17:17 | XMS_ITS | Patient Health Record ---
[facility] Organization [facility] Address [address] [place] [id number] Care Team Providers Care Resource Paraprofessional Name Role Phone Elizanick Wil Primary Care Provider ALLERGIES Allergen (clinical drug ingredient) Drug/Non Drug Allergy documented on EMR Reaction Allergy Type Onset Date Status nafcillin Nafcillin Sodium hives Drug Allergy Active RESULTS Component Value Reference Range Notes Urinalysis, Complete-[id number] Reviewed date:09/15/2024 08:54:25 AM Interpretation: Performing Lab:[facility], [facility], Phone - [phone], Director - MDJodry Notes/Report: Specific Okay 1.006 1.005-1.030 pH 7.0 5.0-7.5 Urine-Color Yellow [...] None seen/Few Yeast Trichomonas Comment Vitamin D, 52-Rwzyvxp-[id number] Reviewed date:09/15/2024 08:54:25 AM Interpretation: Performing Lab:[facility], [address] [facility], [place], Phone - [phone], Director - MDJodry Notes/Report: Vitamin D, 25-Hydroxy 32.8 30.0-100.0 ng/mL Vitamin D deficiency has been defined by the [place] of [employer] and an Endocrine Society practice guideline as a level of serum 25-OH vitamin D less than 20 ng/mL (1,2). The Endocrine Society went on to further define vitamin D insufficiency as a level between 21 and 29 ng/mL (2). 1. IOM ([place] of [employer]). 2010. Dietary reference intakes for calcium and D. [place]: The National Academies Press. 2. Artur MF, Víctor MONTERO, Missael TRAN, et al. Evaluation, treatment, and prevention of vitamin D deficiency: an Endocrine Society clinical practice guideline. JCEM. 2010; 96(7):1911-30. TSH+Free [id number] Reviewed date:09/15/2024 08:54:25 AM Interpretation: Performing Lab:[facility], [facility], Phone - [phone], Director - MDKelleydry Notes/Report: TSH 1.990 0.450-4.500 uIU/mL T4,Free(Direct) 1.24 0.82-1.77 ng/dL Lipid Panel-[id number] Reviewed date:09/15/2024 08:54:25 AM Interpretation: Performing Lab:[facility], [facility], Phone - [phone], Director - MDdry Notes/Report: Cholesterol, Total 221 100-199 mg/dL Triglycerides 161 0-149 mg/dL HDL Cholesterol 56 >39 mg/dL VLDL Cholesterol Mynor 29 5-40 mg/dL LDL Chol Calc ([facility]) 136 0-99 mg/dL LDL Calc Comment: Comp. Metabolic Panel (13)-[id number] Reviewed date:09/15/2024 08:54:25 AM Interpretation: Performing Lab:[facility], [facility], [place], Phone - [phone], Director - MDJodry Notes/Report: Glucose 85 70-99 [...] 0-40 IU/L CBC with Diff, Platelet, NLR -[id number] Reviewed date:09/15/2024 08:54:25 AM Interpretation: Performing Lab:[facility], [address], [place], Phone - [phone], Director - Valeria Notes/Report: WBC 6.9 3.4-10.8 x10E3/uL Effective September 21, 2024 profile [id number] WBC will be made non-orderable as a [...] (Abs) 0.0 0.0-0.1 x10E3/uL NRBC Hematology Comments: LP+Non-HDL Cholesterol-35648 5 Reviewed date:04/20/2025 10:25:41 AM Interpretation: Performing Lab:[facility] [place], [address] [facility], [place], Phone - [phone], Director - Valeria Notes/Report: Cholesterol, Total 201 100-199 mg/dL Triglycerides 154 0-149 mg/dL HDL Cholesterol 54 >39 mg/dL VLDL Cholesterol Mynor 27 5-40 mg/dL LDL Chol Calc ([facility]) 120 0-99 mg/dL LDL Calc Comment: Non-HDL Cholesterol 147 0-129 mg/dL Hepatic Function Panel (6)-[id number] Reviewed date:04/20/2025 10:25:41 AM Interpretation: Performing Lab:[facility] [place], [address] [facility], [place], Phone - [phone], Director - MDTammy Notes/Report: Albumin 4.3 3.9-4.9 g/dL Bilirubin, Total 0.3 0.0-1.2 mg/dL Bilirubin, Direct 0.10 0.00-0.40 mg/dL Alkaline Phosphatase 163 44-121 IU/L AST (SGOT) 13 0-40 IU/L ALT (SGPT) 11 0-32 IU/L Dexa Bone Density (Axial) Reviewed date:12/21/2024 06:34:44 [...] osteoporosis as determined by WHO criteria. WSN: [id number] Ordering Physician: Wil Guerrero Dictated By: Wil Hodges MD MM Digital Mammo Screening Reviewed date:12/22/2024 10:00:41 [...] Evaluation. Lay letter mailed to patient WSN: [id number] Ordering Physician: Wil Guerrero Dictated By: Trini [...] Lay letter not required (ultrasound only) WSN: [id number] Ordering Physician: Wil Guerrero Dictated By: Tirso [...] be sent for referral for a new Chief Engineer Waterworks Carlos Crystal 09/08/2024 03:33:19 PM EST > patient aware paperowrk sent she will call them directly to schedule Clinical Notes Dr. Irvin Palma , P:[phone] , F:[phone] Referral Priority Routine Reason Screening colonoscop y Diagnosis 1 Screening for colon cancer (Z12.11) Referral Organization Wil Guerrero Md Referring Provider First Name Wil Referring Provider Last Name Yolanda Referring Provider Speciality Internal edicine Referred Provider Specialty Gastroentero logy General Notes Argelia Castro 10:37:27 AM EST > Faxed to [facility] Clinical Notes [facility] Referral Priority Routine Reason EGD Diagnosis 1 Esophageal dysphagia (R13.19) Referral Organization Wil Guerrero Md Referring Provider First Name Wil Referring Provider Last Name Yolanda Referring Provider Speciality Internal edicine Referred Provider Specialty Gastroentero logy General Notes Argelia Castro 11:10:34 AM EDT > Faxed, Argelia Castro 02/04/2025 01:56:34 PM EDT > patient has [...] Notes Argelia Castro 11:10:47 AM EDT > Faxed, Argelia Castro 02/05/2025 08:29:00 AM EDT > PT scheduled for 04/27/25 @ 1pm Referral Priority Routine Referral Appointment Date 04/27/2025 Reason Consultation Diagnosis 1 Sacroiliitis (M46.1) Referral Organization Wil Guerrero Md Referring Provider First Name Wil Referring Provider Last Name Yolanda Referring Provider Speciality Internal M edicine Referred Provider Specialty Pain Medicin e General Notes Argelia Castro 11:47:19 AM EDT > Faxed to [facility] , Argelia Castro 05/13/2025 11:18:28 AM EDT > recieved the [...] be giving them a call. Clinical Notes [place] [facility], PH: [phone], F: [phone] Referral Priority Routine MEDICATIONS Medication SIG (Take, Route, Frequency, Duration) Notes Start Date End Date Status Naproxen 500 MG TAKE 1 TABLET BY TWICE DAILY WITH FOOD OR MILK FOR 14 DAYS NEEDED for 14 Active Vitamin D3 50 MCG (1999) TAKE 1 CAPSULE BY MOUTH DAILY for 90 Active Rosuvastatin Calcium 10 MG 1 tablet Oral ly Once a day for 90 Days Active Singulair 10 MG 1 tablet Orally Once a day Active Prolia 60 MG/ML 1 injection Subcutaneous every 6 months for 180 days Active Calcium Carbonate-Vitamin D 600-10 MG-MCG 1 tablet with a meal Orally Once a day for 90 Days 05/06/2025 Active Albuterol Sulfate (2.5 MG/3ML) 0.083% 3 ml as needed Inhalation every 8 hrs Active Ipratropium Monhegan 0.06 % USE 2 SPRAYS IN EACH NOSTRIL 3 TIMES A DAY Active Ventolin HFA 108 (90 Base) MCG/ACT 1 puff as needed Inhalation every 4 hrs Active metroNIDAZOLE 0.75 % 1 application Externally Once a day Active Vitamin D3 50 MCG (2000 UT) 1 capsule Orally Once a day for 90 Days Active Mometasone Furoate 0.1 % 1 application Externally Once a day 02/19/2025 Active Doxycycline Hyclate 100 MG 1 tablet Oral ly every 12 hrs for 30 days Not-Taking LORazepam 0.5 MG 1 tablet Orally Once a day for 30 days Active Trelegy Ellipta 200-62.5-25 MCG/ACT INHALE 1 PUFF BY MOUTH EVERY DAY Active Losartan Potassium 100 MG TAKE 1 TABLET BY MOUTH EVERY DAY Active Naproxen 500 [...] DAY AT BEDTIME NEEDED for 30 Active Roflumilast 500 MCG Oral for 30 Active Losartan Potassium 100 MG TAKE 1 TABLET BY MOUTH EVERY DAY for 90 Active Vitamin B 12 250 MCG 2 tabs as directed Orally daily Active Montelukast Sodium 10 MG TAKE 1 TABLET B Y MOUTH EVERY DAY for 90 Active Furosemide 20 MG TAKE 1 TABLET BY MARIA GUADALUPE TH EVERY DAY for 90 Active Pantoprazole Sodium [...] less (1 point) Points 1 Interpretation Negative Section Notes: Will update next visit. Will update next visit. Will update next visit. Will update next visit. PROBLEMS Problem Type ICD Code Onset Dates Problem Status W/U Status Risk SNOMED Code Notes Problem Annual physical exam (Z00.00) Active confirmed 272454754 Problem Vitamin D deficiency (E55.9) Active confirmed 89799371 Problem Rosacea (L71.9) Active confirmed 221380 004 Problem Anxiety (F41.9) Active confirmed 265927 02 Problem COPD exacerbation (J44.1) Active confirmed 792704050 Problem Sacroiliitis (M46.1) Active confirmed 5 8327247 Problem Age-related osteoporosis without current pathological fracture (M81.0) Active confirmed 10494628 Problem Primary insomnia (F51.01) Active confirmed 4561069 Problem Mixed hyperlipidemia (E78.2) Active confirmed 729657974 Problem Essential hypertension (I10) Active confirmed 91697734 Problem Gastroesophageal reflux disease without esophagitis (K21.9) Active confirmed 434194677 Problem Chronic obstructive pulmonary disease, unspecified COPD type (J44.9) Active confirmed 47601511 Problem Spondylosis of lumbar region without myelopathy or radiculopathy (M47.816) Active confirmed 542817189 Problem Depression, unspecified depression type (F32.9) Active confirmed 33733419 Problem Malignant neoplasm of upper lobe of right lung (C34.11) Active confirmed 404620823 Problem Moderate episode of recurrent major depressive disorder (F33.1) Active confirmed 469804260 Problem Osteoporosis without current pathological fracture, unspecified osteoporosis type (M81.0) Active confirmed 49296979 Problem Allergic rhinitis, unspecified seasonality, unspecified trigger (J30.9) Active confirmed 79677904 Problem Major depressive disorder with single episode, in full remission (F32.5) Active confirmed 62723184 Problem Port-A-Cath in place (Z95.828) Active confirmed 826394278 Problem Aneurysm of ascending aorta without rupture (I71.21) Active confirmed 244676390 VITAL SIGNS Heart Rate 76 /min 05/27/2025 Oximetry 98 % 02/25/2025 Oxygen saturati on 96% on ambulation Blood pressure diastolic 80 mm Hg 05/27/2025 Height 64 in 05/27/2025 Blood pressure systolic 120 mm Hg 05/27/2025 Weight 164 lbs 05/27/2025 BMI 28.15 kg/m2 05/27/2025 Encounters Encounter Location Date Provider Diagnosis [address] [address] 08/13/2024 Wil Guerrero Chronic obstructive pulmonary disease, [...] exam (CPE) Z00.00 and Primary insomnia F51.[address] [address] 09/08/2024 Wil Guerrero Chronic obstructive pulmonary disease, [...] Vitamin D deficiency E55.9 Wil Guerrero Md [address] [place] [id number] 09/14[facility]20[facility] [address] [address] 09/21/2024 Wil Guerrero [facility], [address] [address] 10/28/2024 Wil Guerrero Annual physical exam Z00.00 ; Mixed hyperlipidemia E78.2 ; Encounter for screening mammogram for malignant neoplasm of breast Z12.31 ; Osteoporosis without current pathological fracture, unspecified osteoporosis type M81.0 and Screening for colon cancer Z12.[address] [address] 02/04/2025 Wil Guerrero Chronic obstructive pulmonary disease, [...] R13.19 and Screening for colon cancer Z12.[address] [address] 02/19/2025 Wil Guerrero Seborrheic dermatiti s L21.[address] [address] 02/25/20[address] [address] 02/25/2025 Wil Guerrero COPD exacerbation J4 4.[address] [address] 03/22/2025 Wil Guerrero Aneurysm of ascendin g [...] D deficiency E55.9 and Esophageal dysphagia R13.[address] [address] 04/06/[address] [address] 04/13/[address] [address] 04/19/2025 Wil Guerrero Chronic obstructive pulmonary disease, unspecified [...] R13.19 and Screening for colon cancer Z12.[address] [address] 04/20/[address] [address] 05/06/2025 Wil Marcdeborah Sacroiliitis M46.1 ; Mixed hyperlipidemia E78.2 ; [...] dysphagia R13.19 and Vitamin D deficiency E55.[address] [address] [facility] [address] [address] 05/21/2025 Wil Perla L71.[address] [address] 05/27/2025 Wil Adhikaria L71.9 and Pruritus L29.[address] [address] 06/29/2025 Wil Guerrero ASSESSMENTS Encounter Date Diagnosis Assessment Notes Treatment Notes Treatment Clinical Notes Section Notes 09/08/2024 Chronic obstructive pulmonary disease, unspecified COPD type (ICD-10 - J44.9) 10/28/2024 Annual physical exam (ICD-10 - Z00.00) 10/28/2024 Mixed hyperlipidemia (ICD-10 - E78.2) 08/13/2024 Aneurysm of ascending aorta without rupture (ICD-10 - I71.21) 08/13/2024 Chronic obstructive pulmonary disease, unspecified COPD type (ICD-10 - J44.9) 05/27/2025 Pruritus (ICD-10 - L29.9) 05/27/2025 Rosacea (ICD-10 - L71.9) 02/04/2025 Chronic obstructive pulmonary disease, unspecified COPD type (ICD-10 - J44.9) 02/19/2025 Seborrheic dermatitis (ICD-10 - L21.9) 02/25/2025 COPD exacerbation (ICD-10 - J44.1) 03/22/2025 Aneurysm of ascending aorta without rupture (ICD-10 - I71.21) 03/22/2025 Age-related osteoporosis without current pathological fracture (ICD-10 - M81.0) 04/19/2025 Chronic obstructive pulmonary disease, unspecified COPD type (ICD-10 - J44.9) 05/06/2025 Mixed hyperlipidemia (ICD-10 - E78.2) 05/06/2025 Sacroiliitis (ICD-10 - M46.1) 05/21/2025 Rosacea (ICD-10 - L71.9) 02/04/2025 Essential hypertension (ICD-10 - I10) 02/04/2025 Aneurysm of ascending aorta without rupture (ICD-10 - I71.21) 08/13/2024 Essential hypertension (ICD-10 - I10) 03/22/2025 Chronic obstructive pulmonary disease, unspecified COPD type (ICD-10 - J44.9) 04/19/2025 Aneurysm of ascending aorta without rupture (ICD-10 - I71.21) 04/19/2025 Essential hypertension (ICD-10 - I10) 05/06/2025 Osteoporosis without current pathological fracture, unspecified osteoporosis type (ICD-10 - M81.0) 09/08/2024 Essential hypertension (ICD-10 - I10) 09/08/2024 Aneurysm of ascending aorta without rupture (ICD-10 - I71.21) 10/28/2024 Encounter for screening mammogram for malignant neoplasm of breast (ICD-10 - Z12.31) 02/04/2025 Moderate episode of recurrent major depressive disorder (ICD-10 - F33.1) 05/06/2025 Essential hypertension (ICD-10 - I10) 09/08/2024 Moderate episode of recurrent major depressive disorder (ICD-10 - F33.1) 03/22/2025 Essential hypertension (ICD-10 - I10) 10/28/2024 Osteoporosis without current pathological fracture, unspecified osteoporosis type (ICD-10 - M81.0) 04/19/2025 Moderate episode of recurrent major depressive disorder (ICD-10 - F33.1) 08/13/2024 Moderate episode of recurrent major depressive disorder (ICD-10 - F33.1) 10/28/2024 Screening for colon cancer (ICD-10 - Z12.11) 05/06/2025 Aneurysm of ascending aorta without rupture (ICD-10 - I71.21) 04/19/2025 Age-related osteoporosis without current pathological fracture (ICD-10 - M81.0) Prolia is not covered by insurance. 08/13/2024 Age-related osteoporosis without current pathological fracture (ICD-10 - M81.0) Prolia is not covered by insurance. 03/22/2025 Moderate episode of recurrent major depressive disorder (ICD-10 - F33.1) 02/04/2025 Age-related osteoporosis without current pathological fracture (ICD-10 - M81.0) Prolia is not covered by insurance. 09/08/2024 Age-related osteoporosis without current pathological fracture (ICD-10 - M81.0) Prolia is not covered by insurance. 08/13/2024 Malignant neoplasm of upper lobe of right lung (ICD-10 - C34.11) 04/19/2025 Malignant neoplasm of upper lobe of right lung (ICD-10 - C34.11) 03/22/2025 Malignant neoplasm of upper lobe of right lung (ICD-10 - C34.11) 02/04/2025 Malignant neoplasm of upper lobe of right lung (ICD-10 - C34.11) 05/06/2025 Chronic obstructive pulmonary disease, unspecified COPD type (ICD-10 - J44.9) 09/08/2024 Malignant neoplasm of upper lobe of right lung (ICD-10 - C34.11) 02/04/2025 Gastroesophageal reflux disease without esophagitis (ICD-10 - K21.9) 03/22/2025 Gastroesophageal reflux disease without esophagitis (ICD-10 - K21.9) 09/08/2024 Gastroesophageal reflux disease without esophagitis (ICD-10 - K21.9) 05/06/2025 Moderate episode of recurrent major depressive disorder (ICD-10 - F33.1) 08/13/2024 Gastroesophageal reflux disease without esophagitis (ICD-10 - K21.9) 04/19/2025 Gastroesophageal reflux disease without esophagitis (ICD-10 - K21.9) 03/22/2025 Allergic rhinitis, unspecified seasonality, unspecified trigger (ICD-10 - J30.9) 04/19/2025 Allergic rhinitis, unspecified seasonality, unspecified trigger (ICD-10 - J30.9) 05/06/2025 Age-related osteoporosis without current pathological fracture (ICD-10 - M81.0) Prolia is not covered by insurance. 08/13/2024 Allergic rhinitis, unspecified seasonality, unspecified trigger (ICD-10 - J30.9) 09/08/2024 Allergic rhinitis, unspecified seasonality, unspecified trigger (ICD-10 - J30.9) 02/04/2025 Allergic rhinitis, unspecified seasonality, unspecified trigger (ICD-10 - J30.9) 09/08/2024 Rosacea (ICD-10 - L71.9) 05/06/2025 Malignant neoplasm of upper lobe of right lung (ICD-10 - C34.11) 04/19/2025 Rosacea (ICD-10 - L71.9) 08/13/2024 Rosacea (ICD-10 - L71.9) 02/04/2025 Rosacea (ICD-10 - L71.9) 03/22/2025 Rosacea (ICD-10 - L71.9) 09/08/2024 Anxiety (ICD-10 - F41.9) 08/13/2024 Anxiety (ICD-10 - F41.9) 03/22/2025 Anxiety (ICD-10 - F41.9) 05/06/2025 Gastroesophageal reflux disease without esophagitis (ICD-10 - K21.9) 02/04/2025 Anxiety (ICD-10 - F41.9) 04/19/2025 Anxiety (ICD-10 - F41.9) 03/22/2025 Sacroiliitis (ICD-10 - M46.1) 08/13/2024 Sacroiliitis (ICD-10 - M46.1) 02/04/2025 Sacroiliitis (ICD-10 - M46.1) 04/19/2025 Sacroiliitis (ICD-10 - M46.1) 05/06/2025 Allergic rhinitis, unspecified seasonality, unspecified trigger (ICD-10 - J30.9) 09/08/2024 Sacroiliitis (ICD-10 - M46.1) 02/04/2025 Muscle spasm (ICD-10 - M62.838) 03/22/2025 Muscle spasm (ICD-10 - M62.838) 08/13/2024 Muscle spasm (ICD-10 - M62.838) 04/19/2025 Muscle spasm (ICD-10 - M62.838) 05/06/2025 Rosacea (ICD-10 - L71.9) 09/08/2024 Muscle spasm (ICD-10 - M62.838) 04/19/2025 Primary insomnia (ICD-10 - F51.01) 05/06/2025 Anxiety (ICD-10 - F41.9) 03/22/2025 Primary insomnia (ICD-10 - F51.01) 08/13/2024 Vitamin D deficiency (ICD-10 - E55.9) 02/04/2025 Primary insomnia (ICD-10 - F51.01) 09/08/2024 Primary insomnia (ICD-10 - F51.01) 04/19/2025 Vitamin D deficiency (ICD-10 - E55.9) 05/06/2025 Muscle spasm (ICD-10 - M62.838) 02/04/2025 Vitamin D deficiency (ICD-10 - E55.9) 09/08/2024 Vitamin D deficiency (ICD-10 - E55.9) 08/13/2024 Laboratory tests ordered as part of a complete physical exam (CPE) (ICD-10 - Z00.00) 03/22/2025 Vitamin D deficiency (ICD-10 - E55.9) 05/06/2025 Primary insomnia (ICD-10 - F51.01) 04/19/2025 Esophageal dysphagia (ICD-10 - R13.19) 08/13/2024 Primary insomnia (ICD-10 - F51.01) 02/04/2025 Esophageal dysphagia (ICD-10 - R13.19) 03/22/2025 Esophageal dysphagia (ICD-10 - R13.19) 05/06/2025 Esophageal dysphagia (ICD-10 - R13.19) 04/19/2025 Screening for colon cancer (ICD-10 - Z12.11) 02/04/2025 Screening for colon cancer (ICD-10 - Z12.11) 05/06/2025 Vitamin D deficiency (ICD-10 - E55.9) 09/21/2024 Other This chart has been transcribed by a computerized dictation system. There are likely to be multiple veterinary medical officer inaccuracies despite chart review. 10/28/2024 Other This chart has been transcribed by a computerized dictation system. There are likely to be multiple veterinary medical officer inaccuracies despite chart review. 08/13/2024 Other This chart has been transcribed by a computerized dictation system. There are likely to be multiple veterinary medical officer inaccuracies despite chart review. 09/08/2024 Other This chart has been transcribed by a computerized dictation system. There are likely to be multiple veterinary medical officer inaccuracies despite chart review. 02/04/2025 Other This chart has been transcribed by a computerized dictation system. There are likely to be multiple veterinary medical officer inaccuracies despite chart review. 05/06/2025 Other This chart has been transcribed by a computerized dictation system. There are likely to be multiple veterinary medical officer inaccuracies despite chart review. 04/19/2025 Other This chart has been transcribed by a computerized dictation system. There are likely to be multiple veterinary medical officer inaccuracies despite chart review. 02/19/2025 Other This chart has been transcribed by a computerized dictation system. There are likely to be multiple veterinary medical officer inaccuracies despite chart review. 02/25/2025 Other This chart has been transcribed by a computerized dictation system. There are likely to be multiple veterinary medical officer inaccuracies despite chart review. 03/22/2025 Other This chart has been transcribed by a computerized dictation system. There are likely to be multiple veterinary medical officer inaccuracies despite chart review. This chart has been transcribed by a computerized dictation system. There are likely to be multiple veterinary medical officer inaccuracies despite chart review. 05/27/2025 Other This chart has been transcribed by a computerized dictation system. There are likely to be multiple veterinary medical officer inaccuracies despite chart review. PLAN OF TREATMENT Pending Test Test Name Order Date MAMMOGRAM, SCREENING 10/28/2024 MAMMOGRAM, SCREENING 08/31/2020 MAMMOGRAM, SCREENING 09/16/2023 Bone Density 01/09/2022 Bone Density 10/28/2024 *EKG 06/12/2022 COMPREHENSIVE METABOLIC PANL 05/07/2019 LIPID PANEL 05/07/2019 THYROID PANEL 05/07/2019 COMPLETE CBC WITH DIFF 05/07/2019 COMPLETE URINALYSIS 05/07/2019 Hip Comp Min 2 Views Left 07/06/2019 25OH VITAMIN D 07/25/2023 25OH VITAMIN D 06/12/2022 CBC (COMPLETE BLOOD COUNT) WITH DIFF CBC (COMPLETE BLOOD COUNT) WITH DIFF 02/2023 COMPREHENSIVE METABOLIC PANEL 07/25/2023 COMPREHENSIVE METABOLIC PANEL 06/12/2022 FOLIC ACID 06/12/2022 LIPID PANEL 06/12/2022 LIPID PANEL 07/25/2023 THYROID PANEL (TSH, FT4) 07/25/2023 THYROID PANEL (TSH, FT4) 06/12/2022 URINALYSIS, COMPLETE 06/12/2022 URINALYSIS, COMPLETE 07/25/2023 VITAMIN B12 06/12/2022 Pulmonary Rehab 08/16/2023 Hepatic Function Panel [id number] Hepatic Function Panel ([id number] 2024 Lipid Panel-[id number] 05/06/2025 Lipid Panel-[id number] 10/28/2024 Next Appt Details Provider Name:Wil Tranramin romero, 08/12/2025 11:00:00 AM, [address] [place] [address], [phone], Insurance Providers Payer Name Payer Address Payer Phone Subscriber Number Group Number Insured Name Patient Relationship to Insured Coverage Start Date Coverage End Date [address] [place] [phone] [id number] Penelope Alonzo Self - patient is the insured MEDICATIONS ADMINISTERED Medication Instructions Date of Administration Dosage Notes Evenity 03/22/2025 210 ug Evenity 04/19/2025 210 mg MEDICAL (GENERAL) HISTORY Medical History History ICD [...]
--- OUTSIDE RECORDS SUMMARY | 2025-06-30 17:18 | XMS_ITS | Clinical Summary ---
Author Organization [employer] [facility] ity Address [address] [place] [address] Care Team Providers Care Visual Merchandising Manager Name Role Phone Wil Guerrero MD Primary Care Provider [phone] Immunizations Name Administration Dates Next Due Pfizer SARS-CoV-2 COVID-19, mRNA, LNP-S, preservative free 01/01/2021 Surgical History Surgery Date Site/Laterality Comments HYSTERECTOMY PROCEDURE: HISTORICAL HYSTERECTOMY; COMMENT: cervical cancer OTHER SURGICAL HISTORY Right PROCEDURE: [place] RESCJ&BRONCHOPLASTY PFRMD TM LOBEC/SGMECTOMY; COMMENT: RUL and RML ROTATOR CUFF REPAIR Right PROCEDURE: HISTORICAL ROTATOR CUFF REPAIR BREAST LUMPECTOMY Right PROCEDURE: HISTORICAL BREAST LUMPECTOMY; COMMENT: right and partial medial lumpectomy Medical History Medical History Date Comments Allergic rhinitis 05/20/2017 DX:Allergic rh initis COPD (chronic obstructive pu lmonary disease) ([facility] V24, [facility] V28) 05/20/2017 DX:COPD (chronic o bstructive pulmonary disease) ([facility]) Multiple environmental allergies 05/20/2017 DX:Multiple [...] Primary insomnia DX:Primary inso mnia Lung cancer ([facility] V24, [facility] V28) 01/15/2019 DX:Lung cancer ([facility]) Empyema of right pleural spa ce ([facility] V24, [facility] V28) 01/23/2019 DX:Empyema of right pleural space (HCC) [...] Comments Zoster Vaccines (1 of 2) 1978 RSV Immunization Adult Patients (1 - Risk 60-74 years 1-dose series) 2019 Pneumococcal Vaccine: 50+ Years (2 of 2 - PCV) 05/03/2021 05/03/2020 Cholesterol Screening (Lipid Panel) 09/27/2022 Colorectal Cancer Screening: Colonoscopy 09/27/2022 Hepatitis C Screening 09/27/2022 Osteoporosis Screening (Bone Density Screening) 09/27/2022 Social Influencers of Health Screening 09/27/2022 Breast Cancer Screening 12/25/2023 12/24/2021 Falls Risk Assessment 2024 Depression Screening 10/21/2024 COVID-19 Vaccine ( - 2024-2 6 season) 2025 10/05/2021, 01/23/2021, 01/01/2021 Influenza Vaccine (#1) 2025 , 08/02/2020, 09/09/2019 DTaP,Tdap,and Td Vaccines (2 - [...] age to complete this topic Meningococcal B Vaccine Aged Out No l onger eligible based on patient's age to complete this topic RSV Immunization Patients Under 20 months Aged Out No longer eligible b ased on patient's age to complete this topic Varicella Vaccines Aged Out No longer eligible based on patient's age to complete this topic Procedures Procedure Name Priority Date/Time Associated Diagnosis Comments [facility] SCREENING DIGITAL Routine 12/24/2021 10:12 AM EST Encounter for screening mammogram for malignant neoplasm of breast from Last 3 Months or Most Recently Relevant to Health Maintenance Results * [facility] SCREENING DIGITAL (12/24/2021 10:12 AM EST) Anatomical Region Laterality Modality Mammography 12/22/2021 1:54 PM EST Narrative 12/24/2021 10:12 AM EST [facility] Diagnostic Imaging Department [address] [place], [place] [address] Patient: MATT WATTERS Jairo FaustinB./Age/Sex: 1960 - 61 - F Unit#: [id number] Location/Status: [facility] CLI Mnemonic/Ordering Site: [facility] Ordering Physician: GRACIELA ELLIS MD Olive Screening Digital - 12/23/21 - 1054 INDICATION: SCREENING COMPARISON: Outside mammograms dating back to 05/30/2016 TECHNIQUE: CC and MLO views of the breasts were obtained, using full field digital mammography with 3D tomosynthesis views in the MLO projection. Left CC view is limited due to motion artifact. Computer aided detection with the [employer] 7.2-H was employed. FINDINGS: The breasts contain scattered fibroglandular tissues. No suspicious masses, suspicious microcalcifications, or areas of architectural distortion are identified. There are no secondary signs of breast malignancy. [...] of a clinically significant palpable finding. BI-RADS - Category 0 - Incomplete needs additional imaging evaluation. 3340F, 1224F (G0202 / [id number]) , [id number] Dictating Physician: KARL PUGH MD Electronically Signed by: KARL PUGH MD Dic Date/Time: 12/24/21 1007 Sign date/Time: 12/24/21 1012 Procedure Note Karl Pugh MD - 10/10/2022 [facility] Diagnostic Imaging Department [address] [place] [id number] Patient: MATT WATTERS/Age/Sex: 1960 - 61 - F Unit#: [id number] Location/Status: [facility] CLI Mnemonic/Ordering Site: [facility] Ordering Physician: GRACIELA ELLIS MD Olive Screening Digital - 12/23/21 - 1054 INDICATION: SCREENING COMPARISON: Outside mammograms dating back to 05/30/2016 TECHNIQUE: CC and MLO views of the breasts were obtained, using full field digital mammography with 3D tomosynthesis views in the MLO projection. Left CCview is limited due to motion artifact. Computer aided detection with the [employer] 7.2-H was employed. FINDINGS: The breasts contain [...] 0 - Incomplete needs additional imaging evaluation.3340F, 7025F (G0202 / [id number]) , [id number] Dictating Physician: KARL PUGH MD Electronically Signed by: KARL PUGH MD Dic Date/Time: 12/24/21 1007 Sign date/Time: 12/24/21 1012 us Graciela Ellis MD IMG BI PROCEDURES Final Resu lt from Last 3 Months or Most Recently Relevant to Health Maintenance Advance Directives Documents on File Type Date Recorded Patient Naphthalene Still Operator Expl anation Health Care Decision (hx) [...] (hx) 12/05/2018 AD QUIÑONES DIRECTIVE Care Teams Visual Merchandising Manager Relationship Specialty Start Date End Date Wil Guerrero MD PCP - General Internal Medicine 10/11/20
--- OUTSIDE RECORDS SUMMARY | 2025-06-30 17:18 | XMS_ITS | Clinical Summary ---
Author Organization [facility] Address [address] [place] [address] Care Team Providers Care Arc Cutter Name Role Phone Wil Guerrero MD Primary [...] spray in each nostril daily. 0 Active Eciqqyn-Tdvkpmdwlqi-H ormoterol (BREZTRI AEROSPHERE IN) Inhale into the [...] 101 07/10/2023 1:59 PM EDT Temperature 36.9 C (98.5 F) 07/10/2023 1:59 PM EDT Respiratory Rate - - Oxygen Saturation 93% [...] Shingrix-Zoster Vaccine (1 o f 2) 1978 Colon Cancer Screening (Colonoscopy) 2004 Breast Cancer Screening (Mammogram) 2009 Fall Risk Assessment 2024 Osteoporosis Screening (DEXA Scan) 2024 COVID-19 Vaccine (2024-2 6 season) 2025 10/05/2021, 01/23/2021, 01/01/2021 Influenza Vaccine (#1) 2025 RSV Adult > 60+ Yrs or (1 - 1-dose 75+ series) 2034 Hepatitis B Vaccines Aged Out No long er eligible based on patient's age to complete this topic RSV Ped < 20 months Aged Out No longe r eligible based on patient's age to complete this topic Care Teams Arc Cutter Relationship Specialty Start Date End Date Wil Guerrero MD [address] [place] [address] [facility] & [place] [id number] PCP - General Internal Medicine 04/21/19
[2025-06-30 18:15] VITALS: BP 149/98; PULSE 89; RESP 20; TEMP 37; O2SAT 98
== END 2025-06-30 18:15 | disposition home or self-care (01) ==
PROVIDERS: Physician Assistant Medical; Emergency Provider Emergency Medicine; PCP Internal Medicine
DX: H57.9 Unspecified disorder of eye and adnexa (principal); H54.7 Unspecified visual loss; Z79.899 Other long term (current) drug therapy
CPT/HCPCS: 36415; 70496; 70498; 80053; 83735; 85025; 85652; 86140; 96361; 96374; 96375; 99284; J0131; J3360; J7120; Q9967

== ENCOUNTER → 2025-06-30 14:06 | Outpatient (BNV) | payer OTHER, SELFPAY | PROVIDERS: Emergency Provider Emergency Medicine; PCP Internal Medicine; Visit Provider Radiology Diagnostic Radiology | DX: H53.131 Sudden visual loss, right eye (principal) | CPT/HCPCS: 70496; 70498 ==

== ENCOUNTER 2025-08-16 13:00 | Outpatient (AMB) | payer OTHER, SELFPAY ==
--- OUTSIDE RECORDS SUMMARY | 2025-07-02 05:45 | XMS_ITS ---
Author Organization [facility] Address [address] [place] [phone] Care Team Providers Care English Language Learner Teacher Name Role Phone Wil Guerrero Primary Care [...] Orally Once a day for 30 day(s) Not-Taking Furosemide 20 MG TAKE 1 TABLET BY MARIA GUADALUPE TH EVERY DAY for 90 Active Roflumilast 500 MCG Oral Active Singulair 10 MG 1 tablet Orally Once a day Active Clobetasol Propionate 0.05 % 1 application Externally Twice a day for 10 day(s) 07/02/2025 Active Albuterol Sulfate HFA 108 (90 Base) MCG/ACT INHALE 1 PUFF BY MOUTH EVERY 4 HOURS NEEDED for 30 Active Calcium Carbonate-Vitamin D 600-10 MG-MCG 1 tablet with a meal Orally Once a day for 90 Days Active Vitamin D3 50 MCG (2000 UT) 1 capsule Orally Once a day for 90 Days Active Pantoprazole Sodium 40 MG TAKE 1 TABLET BY MOUTH EVERY DAY for 90 Active Losartan Potassium 100 MG TAKE 1 TABLET BY MOUTH EVERY DAY for 90 Active Rosuvastatin Calcium 10 MG 1 tablet Oral ly Once a day for 90 Days Active metroNIDAZOLE 0.75 % 1 application Externally Once a day for 90 Days Active Trelegy Ellipta 200-62.5-25 MCG/ACT INHALE 1 PUFF BY MOUTH EVERY DAY Active Ipratropium [place] 0.06 % USE 2 SPRAYS IN EACH NOSTRIL 3 TIMES A DAY Active Ventolin HFA 108 (90 Base) MCG/ACT 1 puff as needed Inhalation every 4 hrs Active Losartan Potassium 100 MG TAKE 1 TABLET BY MOUTH EVERY DAY Active Pantoprazole Sodium 40 MG TAKE 1 TABLET BY MOUTH EVERY DAY Active Furosemide 20 MG TAKE 1 TABLET BY MARIA GUADALUPE TH EVERY DAY FOR 90 DAYS Active Naproxen 500 MG 1 tablet with food o r milk as needed Orally Twice a day for 14 days Not-Taking Albuterol Sulfate (2.5 MG/3ML) 0.083% 3 ml as needed Inhalation every 8 hrs Active Mometasone Furoate 0.1 % 1 application Externally Once a day 02/19/2025 Active Cyclobenzaprine HCl 10 MG 1 tablet as ne eded Orally 3 times a day for 14 days Not-Taking LORazepam 0.5 MG 1 tablet Orally Twic e a day for 30 days 07/02/2025 Active SOCIAL HISTORY Tobacco Use: Social History [...] Interpretation Negative VITAL SIGNS Blood pressure systolic 118 mm Hg 07/02/20 25 Blood pressure diastolic 80 mm Hg 025 Heart Rate 76 /min 07/02/2025 Height 64 in 07/02/2025 Weight 161.4 lbs 07/02/2025 BMI 27.70 kg/m2 07/02/2025 Encounters Encounter Location Date Provider Diagnosis [facility] [address] [place] [address] 07/02/2025 Wil Guerrero Moderate episode of recurrent major depressive disorder F33.1 ; Anxiety F41.9 ; 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5) 07/02/2025 Essential hypertension (ICD-10 - I10) 07/02/2025 Mixed hyperlipidemia (ICD-10 - E78.2) 07/02/2025 Osteoporosis without current pathological fracture, unspecified osteoporosis type (ICD-10 - M81.0) 07/02/2025 Chronic obstructive pulmonary disease, unspecified COPD type (ICD-10 - J44.9) 07/02/2025 Gastroesophageal reflux disease without esophagitis (ICD-10 - K21.9) 07/02/2025 Rosacea (ICD-10 - L71.9) 07/02/2025 Other This chart has been transcribed by a computerized dictation system. There are likely to be multiple stove tender inaccuracies despite chart review. PLAN OF TREATMENT Medication Medication Name Sig Start Date Stop Date Notes Roflumilast 500 MCG Oral Singulair 10 MG 1 tablet Orally Once a day Clobetasol Propionate 0.05 % 1 applicati on Externally Twice a day for 10 day(s) 07/02/2025 Calcium Carbonate-Vitamin D 600-10 MG-MCG 1 tablet with a meal Orally Once a day for 90 Days Rosuvastatin Calcium 10 MG 1 tablet Oral ly Once a day for 90 Days metroNIDAZOLE 0.75 % 1 application Exter eve Once a day for 90 Days Trelegy Ellipta 200-62.5-25 MCG/ACT INHALE 1 PUFF BY MOUTH EVERY DAY Ipratropium [place] 0.06 % USE 2 SPRAYS IN EACH NOSTRIL 3 TIMES A DAY Ventolin HFA 108 (90 Base) MCG/ACT 1 puff as needed Inhalation every 4 hrs Losartan Potassium 100 MG TAKE 1 TABLET BY MOUTH EVERY DAY Pantoprazole Sodium 40 MG TAKE 1 TABLET BY MOUTH EVERY DAY Furosemide 20 MG TAKE 1 TABLET BY MARIA GUADALUPE TH EVERY DAY FOR 90 DAYS Albuterol Sulfate (2.5 MG/3M L) 0.083% 3 ml as needed Inhalation every 8 hrs LORazepam 0.5 MG 1 tablet Orally Twic e a day for 30 days 07/02/2025 Treatment Notes Assessment Notes Other This chart has been transcribed by a computerized dictation system. There are likely to be multiple stove tender inaccuracies despite chart review. Next Appt Details Follow Up: as scheduled, Leila son: Provider Name:Laura Chacon i, 08/17/2025 10:00:00 AM, [address] [place] [address], [phone], Progress Notes * Examination Category Sub-Category Detail Notes Category Not es General Examination GENERAL APPEARANCE: in no ac quileute distress, well developed, well nourished HEAD: normocephalic, atrau matic EYES: pupils equal, round, reactive to light and accommodation, extraocular movement intact (EOMI) THROAT: clear, no erythema, uvula midline, no exudate NECK/THYROID: neck supple, no thyr omegaly, trachea midline, no carotid bruit HEART: no murmurs, regular rate and rhythm, S1, S2 normal LUNGS: clear to auscultatio n bilaterally ABDOMEN: soft, nontender, non distended, no organomegaly , bowel sounds present NEUROLOGIC: alert and oriented x 3, nonfocal SKIN: no suspicious lesion s, warm and [...] depression, COPD, is here complaining of worsening anxiety and new diagnosis of retinal vein occlusion. About 1 week ago patient had blurred vision and was seeing spots in her right eye. She contacted her guest relations associate who advised her to go to the emergency room for a stroke workup. Patient had a negative workup in the emergency department and followed up with her guest relations associate who diagnosed her with a right retinal vein occlusion and will routinely need injections in her eye. I reviewed all available hospitalization documents. Patient believes that this occurred due to her hypertension. Patient's blood pressure is within normal range today. She expresses a lot of stress that she is experiencing due to her housing situation. I advised her to increase frequency of lorazepam to twice a day if needed. Patient also complains of pruritic rash on her wrists and ankles. I will send prescription for clobetasol cream. Patient's other chronic medical conditions are well controlled on current medications.
--- OUTSIDE RECORDS SUMMARY | 2025-07-02 10:58 | XMS_ITS ---
[facility] Address [address] [place] [phone] Care Team Providers Care Building Maintenance Repairer Name Role Phone ElizaWil romero Primary Care Provider REASON FOR VISIT Wrong Pharm MEDICATIONS Medication SIG (Take, Route, Fr equency, Duration) Notes Start Date End Date Status LORazepam 0.5 MG 1 tablet Orally Twic e a day for 30 days 07/02/2025 Active Encounters Encounter Location Date Provider Diagnosis [facility] [phone] 07/02/2025 Wil Guerrero Anxiety F41.9 ASSESSMENTS Encounter Date Diagnosis Assessment Notes Treatment Notes Treatment Clinical Notes Section Notes 07/02/2025 Anxiety (ICD-10 - F41.9) PLAN OF TREATMENT Medication Medication Name Sig Start Date Stop Date Notes LORazepam 0.5 MG 1 tablet Orally Twice a day for 30 days 0 07/02/2025 Next Appt Details Provider Name:Laura Chacon i, 08/17/2025 10:00:00 AM, [address] [place] [address], [phone],
--- OUTSIDE RECORDS SUMMARY | 2025-07-06 07:15 | XMS_ITS ---
Author Organization [facility] Address [address] [place] [phone] Care Team Providers Care Educational Program Assistant Name Role Phone Wil Guerrero Primary Care Provider ALLERGIES Allergen (clinical drug ingredient) Drug/Non Drug Allergy documented on EMR Reaction Allergy Type Onset Date Status nafcillin Nafcillin Sodium hives Drug Allergy Active REASON FOR VISIT (IN OFFICE), Sick Visit MEDICATIONS Medication SIG (Take, Route, Frequency, Duration) Notes Start Date End Date Status Clobetasol Propionate 0.05 % 1 applicati on Externally Twice a day for 10 day(s) 07/02/2025 Active Pantoprazole Sodium 40 MG TAKE 1 [...] application E xternally Once a day 02/19/2025 Active Montelukast Sodium 10 MG TAKE 1 TABLET B Y MOUTH EVERY DAY Active Vitamin B 12 250 MCG 2 tabs as directed Orally daily Active Losartan Potassium 100 MG TAKE 1 TABLET BY MOUTH EVERY DAY Active Roflumilast 500 MCG Oral Active Losartan Potassium 100 MG TAKE 1 TABLET BY MOUTH EVERY DAY for 90 Active Furosemide 20 MG TAKE 1 TABLET BY MARIA GUADALUPE TH EVERY DAY for 90 Active Calcium Carbonate-Vitamin D 600-10 MG-MCG 1 tablet with a meal Orally Once a day for 90 Days Active Albuterol Sulfate HFA 108 (90 Base) MCG/ACT INHALE 1 PUFF BY MOUTH EVERY 4 HOURS NEEDED for 30 Active Pantoprazole Sodium 40 MG TAKE 1 TABLET BY MOUTH EVERY DAY for 90 Active Prolia 60 MG/ML 1 injection Subcutan eous every 6 months for 180 days Active Naproxen 500 MG 1 tablet with food o r milk as needed Orally Twice a day for 14 days Active Cyclobenzaprine HCl 10 MG 1 tablet as ne eded Orally 3 times a day for 14 days Active traZODone HCl 50 MG 1 tablet at bedtime as needed Orally Once a day for 30 day(s) Active Rosuvastatin Calcium 10 MG 1 tablet Oral ly Once a day for 90 Days Active Trelegy Ellipta 200-62.5-25 MCG/ACT INHALE 1 PUFF BY MOUTH EVERY DAY Active metroNIDAZOLE 0.75 % 1 application Exter eve Once a day for 90 Days Active LORazepam 0.5 MG 1 tablet Orally Once a day for 30 days Active Vitamin D3 50 MCG (2000 UT) 1 capsule Or ally Once a day for 90 Days Active Doxycycline Hyclate 100 MG 1 tablet Oral ly every 12 hrs for 30 days Active Ipratropium [place] 0.06 % USE 2 SPRAYS IN EACH NOSTRIL 3 TIMES A DAY Active Ventolin HFA 108 (90 Base) MCG/ACT 1 puff as needed Inhalation every 4 hrs Active IMMUNIZATIONS Vaccine Route Administration Date Status Comme nts * FLUARIX TIV PFS IM Intramuscular 07/06/2025 Administered SOCIAL HISTORY Tobacco Use: Social History [...] Interpretation Negative VITAL SIGNS Blood pressure systolic 130 mm Hg 07/06/20 25 Blood pressure diastolic 90 mm Hg 025 Heart Rate 80 /min 07/06/2025 Height 64 in 07/06/2025 Weight 163.4 lbs 07/06/2025 BMI 28.04 kg/m2 07/06/2025 Right arm 120/90 Encounters Encounter Location Date Provider Diagnosis [facility], [address] [address] 07/06/2025 Wil Hakim Encounter for immunization Z23 ; Sacroiliitis M46.1 ; Mixed hyperlipidemia E78.2 ; [...] Treatment Notes Treatment Clinical Notes Section Notes 07/06/2025 Encounter for immunization (ICD-10 - Z23) 07/06/2025 Sacroiliitis (ICD-10 - M46.1) 07/06/2025 Mixed hyperlipidemia (ICD-10 - E78.2) 07/06/2025 Osteoporosis without current pathological fracture, unspecified osteoporosis type (ICD-10 - M81.0) 07/06/2025 Essential hypertension (ICD-10 - I10) 07/06/2025 Aneurysm of ascending aorta without rupture (ICD-10 - I71.21) 07/06/2025 Chronic obstructive pulmonary disease, unspecified COPD type (ICD-10 - J44.9) 07/06/2025 Moderate episode of recurrent major depressive disorder (ICD-10 - F33.1) 07/06/2025 Age-related osteoporosis without current pathological fracture (ICD-10 - M81.0) Prolia is not covered by insurance. 07/06/2025 Malignant neoplasm of upper lobe of right lung (ICD-10 - C34.11) 07/06/2025 Gastroesophageal reflux disease without esophagitis (ICD-10 - K21.9) 07/06/2025 Allergic rhinitis, unspecified seasonality, unspecified trigger (ICD-10 - J30.9) 07/06/2025 Rosacea (ICD-10 - L71.9) 07/06/2025 Anxiety (ICD-10 - F41.9) 07/06/2025 Muscle spasm (ICD-10 - M62.838) 07/06/2025 Primary insomnia (ICD-10 - F51.01) 07/06/2025 Esophageal dysphagia (ICD-10 - R13.19) 07/06/2025 Vitamin D deficiency (ICD-10 - E55.9) 07/06/2025 Other This chart has been transcribed by a computerized dictation system. There are likely to be multiple package sorter inaccuracies despite chart review. PLAN OF TREATMENT Medication Medication Name Sig Start Date Stop Date Notes Pantoprazole Sodium 40 MG TAKE 1 TABLET BY MOUTH EVERY DAY Singulair 10 MG 1 tablet Orally Once a day Furosemide 20 MG TAKE 1 TABLET BY MARIA GUADALUPE TH EVERY DAY FOR 90 DAYS Albuterol Sulfate (2.5 MG/3M L) 0.083% 3 ml as needed Inhalation every 8 hrs Montelukast Sodium 10 MG TAKE 1 TABLET B Y MOUTH EVERY DAY Vitamin B 12 250 MCG 2 tabs as directed Orally daily Losartan Potassium 100 MG TAKE 1 TABLET BY MOUTH EVERY DAY Calcium Carbonate-Vitamin D 600-10 MG-MCG 1 tablet with a meal Orally Once a day for 90 Days Prolia 60 MG/ML 1 injection Subcutan eous every 6 months for 180 days Naproxen 500 MG 1 tablet with food o r milk as needed Orally Twice a day for 14 days Cyclobenzaprine HCl 10 MG 1 tablet as ne eded Orally 3 times a day for 14 days traZODone HCl 50 MG 1 tablet at bedtime as needed Orally Once a day for 30 day(s) Rosuvastatin Calcium 10 MG 1 tablet Oral ly Once a day for 90 Days Trelegy Ellipta 200-62.5-25 MCG/ACT INHALE 1 PUFF BY MOUTH EVERY DAY metroNIDAZOLE 0.75 % 1 application Exter eve Once a day for 90 Days LORazepam 0.5 MG 1 tablet Orally Once a day for 30 days Vitamin D3 50 MCG (2000 UT) 1 capsule Or ally Once a day for 90 Days Doxycycline Hyclate 100 MG 1 tablet Oral ly every 12 hrs for 30 days Ipratropium [place] 0.06 % USE 2 SPRAYS IN EACH NOSTRIL 3 TIMES A DAY Ventolin HFA 108 (90 Base) MCG/ACT 1 puff as needed Inhalation every 4 hrs Treatment Notes Assessment Notes Age-related osteoporosis wit hout current pathological fracture Prolia is not covered by insurance. Other This chart has been transcribed by a computerized dictation system. There are likely to be multiple package sorter inaccuracies despite chart review. Next Appt Details Follow Up: as scheduled, Leila son: Provider Name:Laura Chacon i, 08/17/2025 10:00:00 AM, [address] [place] [address], [phone], Progress Notes * Examination Category Sub-Category Detail Notes Category Not es General Examination GENERAL APPEARANCE: in no ac [place] distress, well developed, well nourished HEAD: normocephalic, [...] and new diagnosis of retinal vein occlusion. He had a CAT scan of head and neck which was within normal limits. He tells me that her blood pressure runs high. I checked her blood pressure on both arms and got normal readings. She tells me that she is under a lot of stress at her apartment and has been trying to move to a different apartment. She needs assistance from our office in order to relocate. Our office will try to assist the patient. I tried to reassure her that her blood pressure is noted. I encouraged her to remain calm. She also received a flu vaccine during the visit. 65-year-old female patient with history of lung cancer affecting [...] a been a chance to see a paintings conservator for possible cortisone injections to her sacroiliac [...] sent a prescription for Prolia and Caltrate Jett
--- OUTSIDE RECORDS SUMMARY | 2025-07-07 07:49 | XMS_ITS ---
Author [facility] Address [address] [place] [phone] Care Team Providers Care Greek Professor Name Role Phone YolandaWil Primary Care Provider [phone] REASON FOR VISIT Message MEDICATIONS Medication SIG (Take, Route, Frequency, Duration) Notes Start Date End Date Status Mometasone Furoate 0.1 % 1 application E xternally Twice a day for 7 days 02/19/2025 Active Encounters Encounter Location Date Provider Diagnosis ramin Starr[address] [address] 07/07/2025 Wil Guerrero Rosacea L71.9 ASSESSMENTS Encounter Date Diagnosis Assessment Notes Treatment Notes Treatment Clinical Notes Section Notes 07/07/2025 Rosacea (ICD-10 - L71.9) PLAN OF TREATMENT Medication Medication Name Sig Start Date Stop Date Notes Mometasone Furoate 0.1 % 1 application E xternally Twice a day for 7 days 02/19/2025 Next Appt Details Provider Name:Laura Chacon i, 08/17/2025 10:00:00 AM, [address] [place] [address], [phone],
--- OUTSIDE RECORDS SUMMARY | 2025-07-12 09:00 | XMS_ITS ---
Author Organization [facility] Address [address] [place] [phone] Care Team Providers Care Coffee Grinder Name Role Phone Wil Guerrero Primary Care Provider ALLERGIES Allergen (clinical drug ingredient) Drug/Non Drug Allergy documented on EMR Reaction Allergy Type Onset Date Status nafcillin Nafcillin Sodium hives Drug Allergy Active REASON FOR VISIT (IN OFFICE), Sick Visit MEDICATIONS Medication SIG (Take, Route, Frequency, Duration) Notes Start Date End Date Status Rosuvastatin Calcium 10 MG 1 tablet Oral ly Once a day for 90 Days Active traZODone HCl 50 MG 1 tablet at bedtime as needed Orally Once a day for 30 day(s) Active Prolia 60 MG/ML 1 injection Subcutan eous every 6 months for 180 days Active Mometasone Furoate 0.1 % 1 application E xternally Twice a day for 7 days 02/19/2025 Active Calcium Carbonate-Vitamin D 600-10 MG-MCG 1 tablet with a meal Orally Once a day for 90 Days Active Trelegy Ellipta 200-62.5-25 MCG/ACT INHALE 1 PUFF BY MOUTH EVERY DAY Active LORazepam 0.5 MG 1 tablet Orally Once a day for 30 days Active Cyclobenzaprine HCl 10 MG 1 tablet as ne eded Orally 3 times a day for 14 days Active Naproxen 500 MG 1 tablet with food o r milk as needed Orally Twice a day for 14 days Active metroNIDAZOLE 0.75 % 1 application Exter eve Once a day for 90 Days Active Albuterol Sulfate (2.5 MG/3ML) 0.083% 3 ml as needed Inhalation every 8 hrs Active Ventolin HFA 108 (90 Base) MCG/ACT 1 puff as needed Inhalation every 4 hrs Active Ipratropium [place] 0.06 % USE 2 SPRAYS IN EACH NOSTRIL 3 TIMES A DAY Active Vitamin D3 50 MCG (2000 UT) 1 capsule Or ally Once a day for 90 Days Active Doxycycline Hyclate 100 MG 1 tablet Oral ly every 12 hrs for 30 days Active Losartan Potassium 100 MG TAKE 1 TABLET BY MOUTH EVERY DAY Active Vitamin B 12 250 MCG 2 tabs as directed Orally daily Active Singulair 10 MG 1 tablet Orally Once a day Active Pantoprazole Sodium 40 MG TAKE 1 TABLET BY MOUTH EVERY DAY Active Furosemide 20 MG TAKE 1 TABLET BY MARIA GUADALUPE TH EVERY DAY FOR 90 DAYS Active Roflumilast 500 MCG Oral Active Montelukast Sodium 10 MG TAKE 1 TABLET B Y MOUTH EVERY DAY Active Clobetasol Propionate 0.05 % 1 applicati on Externally Twice a day for 10 day(s) 07/02/2025 Active SOCIAL HISTORY Tobacco Use: Social History Observation Description Date Details (start date - stop date) Former Smoker NA - NA Sex Assigned At : Social History Observation Description Sex Assigned At Unknown Tobacco Use/Smoking Question Answer Notes Are you a former smoker Encounters Encounter Location Date Provider Diagnosis [facility], [address] [place] [address] 07/12/20 25 Wil Guerrero ASSESSMENTS Encounter Date Diagnosis Assessment Notes Treatment Notes Treatment Clinical Notes Section Notes 07/12/2025 Other This chart has been transcribed by a computerized dictation system. There are likely to be multiple traveling crane operator inaccuracies despite chart review. PLAN OF TREATMENT Treatment Notes Assessment Notes Other This chart has been transcribed by a computerized dictation system. There are likely to be multiple traveling crane operator inaccuracies despite chart review. Next Appt Details Provider Name:Laura Chacon i, 08/17/2025 10:00:00 AM, [address] [place], [phone],
--- OUTSIDE RECORDS SUMMARY | 2025-07-14 06:35 | XMS_ITS ---
[facility] Address [address] [place] [address] Care Team Providers Care Beef Farmer Name Role Phone Wil Guerrero Primary Care Provider [phone] RESULTS Component Value Reference Range Notes Chest 2 Views Frontal and La t Reviewed date:07/14/2025 02:32:27 PM Interpretation: Performing Lab: Notes/Report: Chest 2 Views Frontal and Lat Reason: J44.9 chronic obstructive pulmonary disease COPD type U07.1 covid 19 virus COMPARISON: 09/01/2024 FINDINGS: LINES AND TUBES: None. LUNGS AND PLEURA: Patient has had a right upper lobe lobectomy. There are stable chronic markings in the right lung base. Heart and mediastinal structures are shifted to the right. There is a tiny stable area of increased markings in the left lung base. HEART, MEDIASTINUM AND BUD: Heart is normal in size. Normal mediastinal and hilar contour. BONES AND SOFT TISSUES: There are surgical anchors overlying the right humeral head. IMPRESSION: No acute abnormality. WSN: [id number] Ordering Physician: Wil Guerrero Dictated By: Xochilt PITTS, Isidro High REASON FOR VISIT Message Encounters Encounter Location Date Provider Diagnosis [facility] [address] 07/14/2025 Wil Guerrero Chronic obstructive pulmonary disease, unspecified COPD type J44.9 and COVID-19 virus infection U07.1 ASSESSMENTS Encounter Date Diagnosis Assessment Notes Treatment Notes Treatment Clinical Notes Section Notes 07/14/2025 Chronic obstructive pulmonary disease, unspecified COPD type (ICD-10 - J44.9) 07/14/2025 COVID-19 virus infection (ICD-10 - U07.1) PLAN OF TREATMENT Next Appt Details Provider Name:Laura Chacon i, 08/17/2025 10:00:00 AM, [address] [place] [address], [phone],
--- OUTSIDE RECORDS SUMMARY | 2025-08-02 06:45 | XMS_ITS ---
Author Organization [facility] Clements Address [address] [place] [phone] Care Team Providers Care Hr Administrator Name Role Phone Wil Guerrero Primary Care Provider [phone] REASON FOR VISIT (IN OFFICE), Sick Visit MEDICATIONS Medication SIG (Take, Route, Frequency, Duration) Notes Start Date End Date Status Mometasone Furoate 0.1 % 1 application E xternally Twice a day for 7 days 02/19/2025 Active Calcium Carbonate-Vitamin D 600-10 MG-MCG 1 tablet with a meal Orally Once a day for 90 Days Active Medrol (Gregorio) 4 MG as directed on packa ge Orally Daily for 6 Days 08/02/2025 Active Azithromycin 250 MG 2 tablets on the , then 1 tablet daily for 4 days Orally Once a day for 5 day(s) 08/02/2025 Active Levalbuterol Tartrate 45 MCG/ACT 1 puff as needed Inhalation every 6 hrs for 30 days Active Prolia 60 MG/ML 1 injection Subcutan eous every 6 months for 180 days Active Rosuvastatin Calcium 10 MG 1 tablet Oral ly Once a day for 90 Days Active Naproxen 500 MG 1 tablet with food o r milk as needed Orally Twice a day for 14 days Active traZODone HCl 50 MG 1 tablet at bedtime as needed Orally Once a day for 30 day(s) Active Cyclobenzaprine HCl 10 MG 1 tablet as ne eded Orally 3 times a day for 14 days Active Ventolin HFA 108 (90 Base) MCG/ACT 1 puff as needed Inhalation every 4 hrs Active metroNIDAZOLE 0.75 % 1 application Exter eve Once a day for 90 Days Active Vitamin D3 50 MCG (1999 UT) 1 capsule Or ally Once a day for 90 Days Active Trelegy Ellipta 200-62.5-25 MCG/ACT INHALE 1 PUFF BY MOUTH EVERY DAY Active LORazepam 0.5 MG 1 tablet Orally Once a day for 30 days Active Albuterol Sulfate (2.5 MG/3ML) 0.083% 3 ml as needed Inhalation every 8 hrs Active Furosemide 20 MG TAKE 1 TABLET BY MARIA GUADALUPE TH EVERY DAY FOR 90 DAYS Active Ipratropium [place] 0.06 % USE 2 SPRAYS IN EACH NOSTRIL 3 TIMES A DAY Active Losartan Potassium 100 MG TAKE 1 TABLET BY MOUTH EVERY DAY Active Vitamin B 12 250 MCG 2 tabs as directed Orally daily Active Montelukast Sodium 10 MG TAKE 1 TABLET B Y MOUTH EVERY DAY Active Losartan Potassium 100 MG TAKE 1 TABLET BY MOUTH EVERY DAY for 90 Active Pantoprazole Sodium 40 MG TAKE 1 TABLET BY MOUTH EVERY DAY for 90 Active Clobetasol Propionate 0.05 % 1 applicati on Externally Twice a day for 10 day(s) 07/02/2025 Active Roflumilast 500 MCG Oral Active VITAL SIGNS Blood pressure systolic 120 mm Hg 08/02/20 25 Blood pressure diastolic 80 mm Hg 025 Heart Rate 76 /min 08/02/2025 Height 64 in 08/02/2025 Weight 165 lbs 08/02/2025 BMI 28.32 kg/m2 08/02/2025 Encounters Encounter Location Date Provider Diagnosis [address] [address] 08/02/2025 Wil Guerrero Respiratory infectio n J98.8 ; Bronchitis J40 and Productive cough R05.8 ASSESSMENTS Encounter Date Diagnosis Assessment Notes Treatment Notes Treatment Clinical Notes Section Notes 08/02/2025 Respiratory infection (ICD-10 - J98.8) 08/02/2025 Bronchitis (ICD-10 - J40) 08/02/2025 Productive cough (ICD-10 - R05.8) 08/02/2025 Other This chart has been transcribed by a computerized dictation system. There are likely to be multiple glazing department supervisor inaccuracies despite chart review. PLAN OF TREATMENT Medication Medication Name Sig Start Date Stop Date Notes Medrol (Gregorio) 4 MG as directed on packa ge Orally Daily for 6 Days 08/02/2025 Azithromycin 250 MG 2 tablets on the fir st day, then 1 tablet daily for 4 days Orally Once a day for 5 day(s) 08/02/2025 Levalbuterol Tartrate 45 MCG/ACT 1 puff as needed Inhalation every 6 hrs for 30 days Treatment Notes Assessment Notes Other This chart has been transcribed by a computerized dictation system. There are likely to be multiple glazing department supervisor inaccuracies despite chart review. Next Appt Details Follow Up: as scheduled, Leila son: Provider Name:Laura Chacon i, 08/17/2025 10:00:00 AM, [address] [facility], [place], [phone], Progress Notes * Examination Category Sub-Category Detail Notes Category Not es General Examination GENERAL APPEARANCE: in no ac [place] distress, well developed, well nourished EYES: No pallor, sclera no n-icteric NOSE: Normal THROAT: clear NECK/THYROID: neck supple, full ra nge of motion, no cervical lymphadenopathy HEART: no murmurs, regular rate and rhythm, S1, S2 normal LUNGS: clear to auscultatio n bilaterally, upper airways with wheezing SKIN: no suspicious lesion s, warm and dry LYMPH NODES: no palpable adenopat hy PSYCH: alert, oriented, cog nitive function intact, mood/affect full range ORAL CAVITY: mucosa moist History and Physical Notes * HPI (History of Present Illness) Category Sub-Category Detail Notes Category Not es Symptom(s) 65-year-old fem ernie patient with history of lung cancer affecting right upper lobe and parts of the right middle lobe s/p mediastinoscopy and lymph node sampling followed by resection of right upper lobe and part of the middle lobe, essential hypertension, anxiety, depression and COPD is here with continues upper respiratory symptoms. She tells me that she recently had COVID and since then has not been able to get rid of her head congestion, productive cough and wheezing. She denies fever, chills and other constitutional symptoms. She tells me that she was seen at urgent care and received Doxycycline but was not able to take it due to GI upset. She has been using her inhalers and nebulizer without much improvement in her symptoms. I discussed URI with her. I will send for Azithromycin 250mg and a Medrol gregorio. I advised her to continue with her nebulizer treatments and daily inhaler, steam inhalations and OTC Mucinex to help with her secretions. I also encouraged her to continue taking her daily allergy medications. She has a scheduled appointment in 1 week, I advised her to keep this. I gave strict ER instructions as well.
--- OUTSIDE RECORDS SUMMARY | 2025-08-02 11:04 | XMS_ITS ---
Author Organization [facility] Address [address] [place] [phone] Care Team Providers Care Supervisor Intermediates Name Role Phone ElizaWil romero Primary Care Provider REASON FOR VISIT Prednisone MEDICATIONS Medication SIG (Take, Route, Fr equency, Duration) Notes Start Date End Date Status Medrol (Gregorio) 4 MG as directed on packa ge Orally Daily for 6 days 08/02/2025 Active Encounters Encounter Location Date Provider Diagnosis [facility] Cle[facility] [address] 08/02/2025 Wil Guerrero Bronchitis J40 ASSESSMENTS Encounter Date Diagnosis Assessment Notes Treatment Notes Treatment Clinical Notes Section Notes 08/02/2025 Bronchitis (ICD-10 - J40) PLAN OF TREATMENT Medication Medication Name Sig Start Date Stop Date Notes Medrol (Gregorio) 4 MG as directed on packa ge Orally Daily for 6 days 08/02/2025 Next Appt Details Provider Name:Laura Chacon i, 08/17/2025 10:00:00 AM, [address] [place] [address], [phone],
--- OUTSIDE RECORDS SUMMARY | 2025-08-04 06:45 | XMS_ITS ---
Author Organization [facility] Address [address] [place] [id number] Care Team Providers Care Dye House Helper Name Role Phone Wil Guerrero Primary Care Provider [phone] ALLERGIES Allergen (clinical drug ingredient) Drug/Non Drug Allergy documented on EMR Reaction Allergy Type Onset Date Status nafcillin Nafcillin Sodium hives Drug Allergy Active REASON FOR VISIT (IN OFFICE), Sick Visit - low BP and ER f/u MEDICATIONS Medication SIG (Take, Route, Frequency, Duration) [...] Twice a day for 14 days Active Trelegy Ellipta 200-62.5-25 MCG/ACT INHALE 1 PUFF BY MOUTH EVERY DAY Active LORazepam 0.5 MG 1 tablet Orally Once a day for 30 days Active metroNIDAZOLE 0.75 % 1 application Exter eve Once a day for 90 Days Active Vitamin D3 50 MCG (2000 UT) 1 capsule Or ally Once a day for 90 Days Active Ventolin HFA 108 (90 Base) MCG/ACT 1 puff as needed Inhalation every 4 hrs Active Ipratropium [place] 0.06 % USE 2 SPRAYS IN EACH NOSTRIL 3 TIMES A DAY Active Albuterol Sulfate (2.5 MG/3ML) 0.083% 3 ml as needed Inhalation every 8 hrs Active Furosemide 20 MG TAKE 1 TABLET BY MARIA GUADALUPE TH EVERY DAY FOR 90 DAYS Active Losartan Potassium 100 MG TAKE 1 TABLET BY MOUTH EVERY DAY Active Vitamin B 12 250 MCG 2 tabs as directed Orally daily Active Montelukast Sodium 10 MG TAKE 1 TABLET B Y MOUTH EVERY DAY Active Clobetasol Propionate 0.05 % 1 applicati on Externally Twice a day for 10 day(s) 07/02/2025 Active Roflumilast 500 MCG Oral Active Pantoprazole Sodium 40 MG TAKE 1 TABLET BY MOUTH EVERY DAY for 90 Active Losartan Potassium 100 MG TAKE 1 TABLET BY MOUTH EVERY DAY for 90 Active Levalbuterol Tartrate 45 MCG/ACT 1 puff as needed Inhalation every 6 hrs Active Medrol (Gregorio) 4 MG as directed on packa ge Orally Daily 08/02/2025 Active Azithromycin 250 MG 2 tablets on the day, then 1 tablet daily for 4 days Orally Once a day 08/02/2025 Active SOCIAL HISTORY Tobacco Use: Social History [...] Interpretation Negative VITAL SIGNS Blood pressure systolic 106 mm Hg 08/04/20 25 Blood pressure diastolic 72 mm Hg 025 Heart Rate 68 /min 08/04/2025 Height 64 in 08/04/2025 Weight 162.8 lbs 08/04/2025 BMI 27.94 kg/m2 08/04/2025 Encounters Encounter Location Date Provider Diagnosis [facility] [address] [id number] 08/04/2025 Wil Guerrero Bronchitis J40 ; Respiratory infection J98.8 and Productive cough R05.8 ASSESSMENTS Encounter Date Diagnosis Assessment Notes Treatment Notes Treatment Clinical Notes Section Notes 08/04/2025 Bronchitis (ICD-10 - J40) 08/04/2025 Respiratory infection (ICD-10 - J98.8) 08/04/2025 Productive cough (ICD-10 - R05.8) 08/04/2025 Other This chart has been transcribed by a computerized dictation system. There are likely to be multiple rn appeals inaccuracies despite chart review. PLAN OF TREATMENT Medication Medication Name Sig Start Date Stop Date Notes Levalbuterol Tartrate 45 MCG/ACT 1 puff as needed Inhalation every 6 hrs Medrol (Gregorio) 4 MG as directed on packa ge Orally Daily 08/02/2025 Azithromycin 250 MG 2 tablets on the day, then 1 tablet daily for 4 days Orally Once a day 08/02/2025 Treatment Notes Assessment Notes Other This chart has been transcribed by a computerized dictation system. There are likely to be multiple rn appeals inaccuracies despite chart review. Next Appt Details Follow Up: as scheduled, Leila son: Provider Name:Laura Chacon i, 08/17/2025 10:00:00 AM, [address] [place] [address], [phone], Progress Notes * Examination Category Sub-Category Detail Notes Category Not es General Examination GENERAL APPEARANCE: in no ac [place] distress, well developed, well nourished EYES: No [...] hypertension, anxiety, depression and COPD is here for ER follow up and continued complaints of low blood pressure. She was seen in office two days ago for URI and was given azithromycin and medrol pack. She was seen in the ER yesterday for worsening cough. She tells me that she was feeling dehydrated as well and still short of breath. I reviewed ER note available. She was not treated for dehydration, her blood pressure was within acceptable range and she was discharged home with instruction to continue her antiobiotics and steriod pack. She tells me today that she is concerned about her blood pressure being too low . She denies dizziness, syncopal episodes or orthostasis. I explained that her blood pressure is within acceptable range but she disagrees. I explained that there are many causes that can cause the fluctuation of blood pressure. I offered to lower her Losartan dose but she then tells me that her blood pressure being too high caused loss of vision in her right eye and was not interested in that. I reassured her that her blood pressure was at an acceptable number and that I did not feel like she was dehydrated. She was quite agitated with this and left the appointment abruptly.
--- OUTSIDE RECORDS SUMMARY | 2025-08-13 10:30 | XMS_ITS ---
Author Organization [facility] Address [address] [place] [id number] Care Team Providers Care Sketch Maker Name Role Phone Wil Guerrero Primary Care Provider ALLERGIES Allergen (clinical drug ingredient) Drug/Non Drug Allergy documented on EMR Reaction Allergy Type Onset Date Status nafcillin Nafcillin Sodium hives Drug Allergy Active REASON FOR VISIT (IN OFFICE), Follow Up MEDICATIONS Medication SIG (Take, Route, Frequency, Duration) Notes Start Date End Date Status Trelegy Ellipta 200-62.5-25 MCG/ACT INHALE 1 PUFF BY MOUTH EVERY DAY for 30 Active Medrol (Gregorio) 4 MG as directed on packa ge Orally Daily 08/02/2025 Active Azithromycin 250 MG 2 tablets on the , then 1 tablet daily for 4 days Orally Once a day 08/02/2025 Active Rosuvastatin Calcium 10 MG TAKE 1 TABLET BY MOUTH DAILY for 90 Active Levalbuterol Tartrate 45 MCG/ACT 1 puff as needed Inhalation every 6 hrs Active Roflumilast 500 MCG Oral Active Pantoprazole Sodium 40 MG TAKE 1 TABLET BY MOUTH EVERY DAY for 90 Active Clobetasol Propionate 0.05 % 1 applicati on Externally Twice a day for 10 day(s) 07/02/2025 Active Calcium Carbonate-Vitamin D 600-10 MG-MCG 1 tablet with a meal Orally Once a day for 90 Days Active Mometasone Furoate 0.1 % 1 application E xternally Twice a day for 7 days 02/19/2025 Active Rosuvastatin Calcium 10 MG 1 tablet Oral ly Once a day for 90 Days Active traZODone HCl 50 MG 1 tablet at bedtime as needed Orally Once a day for 30 day(s) Active Prolia 60 MG/ML 1 injection Subcutan eous every 6 months for 180 days Active Cyclobenzaprine HCl 10 MG 1 [...] needed Inhalation every 4 hrs Active Ipratropium [place] 0.06 % USE 2 SPRAYS IN EACH NOSTRIL 3 TIMES A DAY Active Singulair 10 MG 1 tablet Orally Once a day Active Losartan Potassium 100 MG TAKE 1 TABLET BY MOUTH EVERY DAY for 90 Active Montelukast Sodium 10 MG TAKE 1 TABLET B Y MOUTH EVERY DAY Active Losartan Potassium 100 MG TAKE 1 TABLET BY MOUTH EVERY DAY Active Vitamin B 12 250 MCG 2 tabs as directed Orally daily Active Pantoprazole Sodium 40 MG TAKE 1 TABLET BY MOUTH EVERY DAY Active SOCIAL HISTORY [...] Negative Encounters Encounter Location Date Provider Diagnosis [facility] [address] [phone] 08/13/2025 Wil Guerrero Sacroiliitis M46.1 ; Mixed hyperlipidemia [...] Treatment Notes Treatment Clinical Notes Section Notes 08/13/2025 Sacroiliitis (ICD-10 - M46.1) 08/13/2025 Mixed hyperlipidemia (ICD-10 - E78.2) 08/13/2025 Osteoporosis without current pathological fracture, unspecified osteoporosis type (ICD-10 - M81.0) 08/13/2025 Essential hypertension (ICD-10 - I10) 08/13/2025 Aneurysm of ascending aorta without rupture (ICD-10 - I71.21) 08/13/2025 Chronic obstructive pulmonary disease, unspecified COPD type (ICD-10 - J44.9) 08/13/2025 Moderate episode of recurrent major depressive disorder (ICD-10 - F33.1) 08/13/2025 Age-related osteoporosis without current pathological fracture (ICD-10 - M81.0) Prolia is not covered by insurance. 08/13/2025 Malignant neoplasm of upper lobe of right lung (ICD-10 - C34.11) 08/13/2025 Gastroesophageal reflux disease without esophagitis (ICD-10 - K21.9) 08/13/2025 Allergic rhinitis, unspecified seasonality, unspecified trigger (ICD-10 - J30.9) 08/13/2025 Rosacea (ICD-10 - L71.9) 08/13/2025 Anxiety (ICD-10 - F41.9) 08/13/2025 Muscle spasm (ICD-10 - M62.838) 08/13/2025 Primary insomnia (ICD-10 - F51.01) 08/13/2025 Esophageal dysphagia (ICD-10 - R13.19) 08/13/2025 Vitamin D deficiency (ICD-10 - E55.9) 08/13/2025 Other This chart has been transcribed by a computerized dictation system. There are likely to be multiple tank terminal gauger inaccuracies despite chart review. PLAN OF TREATMENT Medication Medication Name Sig Start Date Stop Date Notes Calcium Carbonate-Vitamin D 600-10 MG-MCG 1 tablet with a meal Orally Once a day for 90 Days Rosuvastatin Calcium 10 MG 1 tablet Oral ly Once a day for 90 Days traZODone HCl 50 MG 1 tablet at bedtime as needed Orally Once a day for 30 day(s) Prolia 60 MG/ML 1 injection Subcutan eous every 6 months for 180 days Cyclobenzaprine HCl 10 MG 1 tablet as ne eded Orally 3 times a day for 14 days Naproxen 500 MG 1 tablet with food o r milk as needed Orally Twice a day for 14 days Doxycycline Hyclate 100 MG 1 tablet Oral ly every 12 hrs for 30 days Vitamin D3 50 MCG (2000 UT) 1 capsule Or ally Once a day for 90 Days Trelegy Ellipta 200-62.5-25 MCG/ACT INHALE 1 PUFF BY MOUTH EVERY DAY LORazepam 0.5 MG 1 tablet Orally Once a day for 30 days metroNIDAZOLE 0.75 % 1 application Exter eve Once a day for 90 Days Albuterol Sulfate (2.5 MG/3M L) 0.083% 3 ml as needed Inhalation every 8 hrs Furosemide 20 MG TAKE 1 TABLET BY MARIA GUADALUPE TH EVERY DAY FOR 90 DAYS Ventolin HFA 108 (90 Base) MCG/ACT 1 puff as needed Inhalation every 4 hrs Ipratropium [place] 0.06 % USE 2 SPRAYS IN EACH NOSTRIL 3 TIMES A DAY Singulair 10 MG 1 tablet Orally Once a day Montelukast Sodium 10 MG TAKE 1 TABLET B Y MOUTH EVERY DAY Losartan Potassium 100 MG TAKE 1 TABLET BY MOUTH EVERY DAY Vitamin B 12 250 MCG 2 tabs as directed Orally daily Pantoprazole Sodium 40 MG TAKE 1 TABLET BY MOUTH EVERY DAY Treatment Notes Assessment Notes Age-related osteoporosis wit hout current pathological fracture Prolia is not covered by insurance. Other This chart has been transcribed by a computerized dictation system. There are likely to be multiple tank terminal gauger inaccuracies despite chart review. Next Appt Details Provider Name:Laura Chacon i, 08/17/2025 10:00:00 AM, [address] [place] [address], [phone], Progress Notes * Examination Category Sub-Category Detail Notes Category Not es General Examination GENERAL APPEARANCE: in no ac [place] distress, well developed, well nourished HEAD: normocephalic, [...] a been a chance to see a painter decorator for possible cortisone injections to her sacroiliac [...]
--- NOTE | 2025-08-16 13:03 | A.OFFVIS_ITS ---
Vital Signs 08/16/25 13:04 Height 5 ft 5 in Weight 160 lb 14.999 oz BMI 26.8 BP 116/90 H Blood Pressure Location Lt brachial Position Sitting Pulse 98 Pulse Source Pulse Oximeter Pulse Oximetry (%) 97 Oxygen Delivery Method Room Air Intake Visit Reasons: post covid shortness of breath Bacteriologist Food Required: No Accompanied by: Self / Same As Patient Allergies nafcillin Adverse Reaction (Verified 08/16/25 13:09) Hives Penicillins Adverse Reaction (Verified 08/16/25 13:09) Hives HPI Comments Details: The patient is a 65 year woman with known history of COPD in addition to lung cancer status post resection back about 5 years ago. She is followed closely by thoracic surgery. She has had CT scans every 6 months for the last 5 years in no evidence of any recurrence. Therefore, she will continue to get CAT scans in a yearly basis now. The patient does complaint of dyspnea on exertion. Moderate severity. She also complains of productive cough with chest congestion. Seems to be getting worse. Sometimes it wakes her up at nighttime. she feels like her symptoms are worse when she is in her home. She is wondering if she could be having a reaction to something in the environment. She does not have good ventilation inside the apartment. She feels that this is causing her to have worsening respiratory symptoms. She has been on the Trelegy inhaler with good effect. She also has a rescue inhaler. She does not tolerate regular albuterol so therefore she does take levo albuterol with better response. She does have frequent exacerbations. When she does have an exacerbation she does respond well to prednisone. At this point the patient will be a great candidate for Daliresp. She has chronic bronchitis with multiple exacerbations. The Daliresp will help decrease her prednisone need and hopefully decrease the mucus burden inflammation of the airways. She can start with 250 mcg dose. She is aware of the side effects. And hopefully she can increase it to the 500 mcg dose in the future. She did have blood work done at [facility] which were reviewed. No evidence of any eosinophilia so therefore not a candidate for Dupixent at this time. One other option to consider is Ohtuvayre. 12/25/2024 the patient is here for a pulmonary follow-up visit. Overall she is doing well. She has started the Daliresp. 250 mcg. She is still using every other day. She is going to try to increase it to daily and then afterwards she can always call me so concerned with a therapeutic dose. She is also responding well to her respiratory inhalers. Still has some shortness breath with activity and cough but overall stable. She did undergo pulmonary function studies demonstrating only a mild amount of COPD. This is reassuring lung volumes are normal and diffusing capacity only mild decrease even after having her lung resection. She is also participating the lung cancer screening program still through [facility]. She will have CT scans to them. She will continue to participating in exercise program. Will plan to follow-up in 8-12 months. If she has any issues prior to that she will call for an earlier assessment. 08/16/2025 the patient is here for sick visit. Apparently she was in his usual state health until recently when she is having issues with blood pressure being labile. She went to the ER once because of blood pressure was significantly elevated and she did have visual changes specially the right eye. She felt that it was hypertensive induced. The patient ultimately followed up with the primary care doctor. Unfortunately she did develop COVID after that and she had significant symptoms because of that with worsening cough chest congestion. She was initially placed on Levaquin but she was concerned about potential side effects of tendonitis. Then she went and got a prescription for doxycycline but she was concerned about taking it. Ultimately after having the COVID she developed postviral laryngo tracheitis. She has significant croupy cough. She went again to [facility] ED where she was given a cough suppressant because of the croup. She did not complete the doxycycline because she was concerned about too many antibiotics. Right now she is back to her baseline. Denies any chest pain. She is following closely with thoracic surgery and I do believe she has a CAT scan with the needs to be scheduled at this point. She will follow-up with thoracic surgery sometime early next year. When she gets a CAT scan she could always send me the report. She does continue with the Trelegy inhaler. The patient also has a nebulizer she can use. She has cough medication she can use. She is also tolerating the Daliresp. She gets very anxious. She has a hard time sleeping. We did talk about multiple medications she can use. She will try some melatonin for now. But for now seems like she is doing okay she is recovering after be pretty ill. She has not appointment in August will have her hold it just in case her symptoms better. Otherwise we can follow-up in the springtime. [facility] Medical History (Updated 07/01/25 @ 00:01 by Stormy Grossman) Dysphagia Dyspnea History of lung cancer COPD (chronic obstructive pulmonary disease) Social History Patient Tobacco Use Status: Former Tobacco user Review of Systems Const Denies fever(s) Eyes Reports no additional complaints ENT Reports dysphagia and Reports nasal congestion Card Denies chest pain and Reports dyspnea on exertion Resp Reports cough, Reports dyspnea on exertion and Reports wheezing GI Reports dysphagia Musc Reports myalgias Skin/Breast Denies rash Endo Reports flushing and Reports heat intolerance Ralph/Lymph Reports no additional complaints Aller/Immun Reports wheezing Physical Exam Vital Signs: Last Vital Signs Pulse 98 08/16/25 13:04 BP 116/90 H 08/16/25 13:04 Pulse Ox 97 08/16/25 13:04 Oxygen Delivery Method Room Air 08/16/25 13:04 BMI result Body Mass Index 26.8 Const General: comfortable HEENT Head: Yes normocephalic Neck Neck: Yes supple Chest Chest palpation & inspection: normal inspection of the chest Resp Effort & Inspection: normal respiratory effort Auscultation: no rhonchi and diminished lung sounds Cardio Heart sounds: S1 normal heart sound present and S2 normal heart sound present GI Palpation (GI): Soft to palpation Skin General skin exam: no rashes or lesions noted Extrem Right upper extremity: no cyanosis Assessment & Plan Assessment & Plan (1) COPD (chronic obstructive pulmonary disease): Code(s): J44.9 - Chronic obstructive pulmonary disease, unspecified Category: Medical Qualifiers: COPD type: chronic bronchitis Chronic bronchitis type: mucopurulent Qualified Code(s): J41.1 - Mucopurulent chronic bronchitis (2) History of lung cancer: Code(s): Z85.118 - Personal history of other malignant neoplasm of bronchus and lung Category: Medical (3) Dyspnea: Code(s): R06.00 - Dyspnea, unspecified Category: Medical Qualifiers: Dyspnea type: dyspnea on exertion Qualified Code(s): R06.09 - Other forms of dyspnea (4) Dysphagia: Code(s): R13.10 - Dysphagia, unspecified Category: Medical Qualifiers: Dysphagia type: unspecified Qualified Code(s): R13.10 - Dysphagia, unspecified Plan Continue Trelegy ERICA (xopenex) as needed Daliresp 500 continue Fluticasone start Astelin nasal spray Serial CT chest at [facility] with Thoracic surgery F/U 6-8 months Medications: New azelastine administer into each nostril 2 sprays intranasal BID 30 mL 6RF 30 days Coding Level of Care Code Est Pt Level 4 (11319) Complex EM visit Add On G2211 Diagnoses Mucopurulent chronic bronchitis J41.1 COPD type: chronic bronchitis Chronic bronchitis type: mucopurulent History of lung cancer Z85.118 Dyspnea on exertion R06.09 Dyspnea type: dyspnea on exertion Dysphagia, unspecified type R13.10 Dysphagia type: unspecified Time Spent (min) 17
[2025-08-16 13:04] VITALS: BP 116/90; PULSE 98; O2SAT 97; BMI 26.8
--- OUTSIDE RECORDS SUMMARY | 2025-08-16 16:29 | XMS_ITS | Continuity of Care Document ---
Author Name [facility], Medical Address [address] [place] [address] Organization Unknown Address [address] [place] [address] Medications No known medications Problems No known problems
--- OUTSIDE RECORDS SUMMARY | 2025-08-16 16:29 | XMS_ITS | Encounter Summary ---
Author Organization [facility] Address [address] [place] [address] Encounters * CPT with Medical [facility] at [employer] on 2025-07-14 { reasonForRequest : pt texted positive for covid, mentions unproductive cough, difficulty breathing , patientReports : , denies :[ Increased work of breathing/labored with or without fever , Unable to speak in full sentences without distress , Discoloration of skin -cyanosis , Needs to sleep sitting up, can t catch breath , Shortness of breath in setting of confusion ], chiefComplaint s : Breathing Problems , pmh : Cancer, COPD/Asthma, Hypertension, Hype rlipidemia, Gastroesophageal Reflux Disease (GERD) , allergies : Penicillins, Na fcillin , otherAllergies :null, painAssessment : , visitOut come : , additionalComments : 65 y.o female complains of Breathing Pr oblems\n\nAdditional PMH [facility] [place] with right lobectomy 6.5 yrs ago\n\nPatient seen by our service 07/10 and tested positive for covid\nPatient calls in today anxious and teary\nPatient is pacing and hyper, post albuterol inhaler\nPatient reports croupy, hacky nonproductive cough\nshortness of breath,+wheezes\nChest congestion, she can't expectorate the phlegm\nSat is 95% on RA, wears supplemental o2 at night, has not had to wear during the day\nPatient is going to do a neb treatment\nShe endorses a headache since last week, no dizziness\nPatient feeling too worked up to answer more questions\nShe would like to be evaluated\n\nI provided information on the mobile health provider response timeand advised the patient and/or caregiver to monitor reported signs and symptoms. I discussed the warning signs of when to seek emergency care. } Sent to a call for a pt complaining of cough/sob. [facility] arrives on scene, pt is alert and oriented, airway is patent. Pt started complaining of URI symptoms on , [facility] on Saturday and tested positive for Covid. Pt has history of asthma, COPD, and Right lobectomy due to Cancer. Pt wears O2 at night at 2lpm. Pt complains of headache, dizzy, post nasal drip, cough since . Pt states dry cough changed two days ago to productive cough with clear phlegm. Pt complains of sob/anxiety this afternoon after realizing her apt was very humid pt reports turning air conditioners up, using albuterol inhaler, and neb treatment which helped. Pt is concerned about phlegm change. BP:145/98, P:84, RR:18, SpO2:98% RA, T:97.9; Head: unremarkable; Lung sounds: clear bilaterally; Abdomen: soft, non-tender, no distention; Back: unremarkable; Extremities:no peripheral edema; Skin: pink, warm, dry; [facility] consulted and orders Duo neb, Prednisone 60mg PO, and Doxycycline 100mg PO. [facility] sends script to pt's pharmacy. 5 med rights verified; Duo neb, Prednisone 60mg PO, and Doxycycline 100mg PO administered without incident. Red flags discussed. Pt has no further questions. ORAL_MEDICATION, POC_FLU_STREP, COVID_TEST Written by Medical [facility] on 2025-07-14
--- OUTSIDE RECORDS SUMMARY | 2025-08-16 16:29 | XMS_ITS | Continuity of Care Document ---
Author Name [facility], Medical Address [address] [place] [address] Organization Unknown Address [address] [place] [address] Medications No known medications Problems No known problems
--- OUTSIDE RECORDS SUMMARY | 2025-08-16 16:29 | XMS_ITS | Encounter Summary ---
Author Organization [facility] Address [address] [place] [address] Encounters * CPT with Medical [facility] at [facility] on 2025-07-10 { reasonForRequest : Follow up visit , patientReports : ,&q uot;denies :[ Increased work of breathing/labored with or without fever , Unable to speak in full sentences without distress , Discoloration of skin -cyanosis ,"Needs to sleep sitting up, can t catch breath , Shortness of breath in setting of c onfusion ], chiefComplaints : Common Cold, High Blood Pressure, Heart Rate Probl ems , pmh : Cancer, COPD/Asthma, Hypertension, Hyperlipidemia, Gastroesophageal Reflux Disease (GERD) , allergies : Penicillins, Nafcillin , otherAlle rgies :null, painAssessment : , visitOutcome : ,"additionalComments : 65 y.o female complains of Common Cold, High Blood Pressure, Heart Rate Problems\n\nHistory Lung CA with right lebectomy 6.5 years ago, supplemental o2 2L at HS\n\nPatient seen 07/08 for cold symptoms\nShe was called in follow up today per [facility] request\nShe reports headache, and is concerned that it is due to her blood pressure vs cold symptoms\nShe endorses her coldbeing all in her head, +head pressure and sinus pressure/congestion\nHas a nonproductive cough, body aches, weakness and fatigue\nShe denies shortness of breath, no dizziness\nDenies nausea, vomitingor diarrhea\nCurrent heart rate 97 per oximeter, o2 sat normal, states her heart rate has consistently been in the 100s- her blood pressure cuff needs new batteries and has been unable to check\nPatient takes losartan daily\nPoor PO intake\nShe has been taking tylenol and robitussin DM\nShe would like to be evaluated\n\n\nI provided information on the mobile health provider response time and advised the patient and/or caregiver to monitor reported signs and symptoms. I discussed the warning signs of when to seek emergency care. } Arrived to find patient in her residence. Ambulating with a cane. Patient aox4. GCS 15 skin pink warm and dry. Patient endorsed head pressure and coughing since . [facility] and [facility] which was negative. Coughing up clear phlegm. Patient lung sounds clearand equal. VS as noted. Afebrile. Covid test positive today. Adequate PO hydration and intake. No red flag symptoms. C called advised OTC medications and rest. Patient in agreement. . IV_(FLUIDS_AND/OR_MEDICATION), MEDICATION_IM, ORAL_MEDICATION, EKG, POC_BLOODWORK, POC_FLU_STREP, COVID_TEST, ORTHOSTATIC_VITAL_SIGNS Written by Medical [facility] on 2025-07-10
--- OUTSIDE RECORDS SUMMARY | 2025-08-16 16:29 | XMS_ITS | Clinical Summary ---
Author Organization [facility] Address [address] [place] [address] Phone Care Team Providers Care Field Test Engineer Name Role Phone Wil Guerrero MD Primary Care Provider [phone] Allergies Active Allergy Reactions Criticality Noted Date Comments Nafcillin Hives,Rash High 01/22/2019 Other reaction(s): Hives/Urticaria Penicillins 08/07/2025 Medications doxycycline (VIBRAMYCIN) 100 mg capsule Take 1 capsule (100 mg total) by mouth 2 (two) times a day for 10 days. Take with at least 8 ounces (large glass) of water, do not lie down for 30 minutes after. Administer 2 hours before or after multivitamins, antacids, or other products containing polyvalent cations (i.e., calcium, iron, magnesium, selenium, zinc). 20 capsule 5 08/18/20 25 Active albuterol HFA (PROAIR HFA ; PROVENTIL HFA ; VENTOLIN HFA) 90 mcg/actuation inhaler Inhale 2 puffs by mouth every 4 (four) hours if needed for shortness of breath or wheezing. 8 g 5 09/07/20 25 Active loratadine (CLARITIN) 10 mg tablet Take 1 tablet (10 mg total) by mouth 1 (one) time each day. 30 tablet 5 09/07/20 25 Active diphenhydrAMIN E (BENADRYL) 25 mg capsule Take 1 capsule (25 mg total) by mouth at bedtime as needed for itching for up to 16 days. 16 capsule 10/19/08/24/20 25 Active methylPREDNISo lone (MEDROL DOSPAK) 4 mg tablet Follow schedule on package instructions 21 tablet 5 08/14/20 benzonatate (TESSALON) 100 mg capsule Take 1 capsule (100 mg total) by mouth every 8 (eight) hours for 7 days. Do not crush or chew. 21 capsule 5 08/15/20 Encounters Date Type Department Care Team Description 08/13/2025 Telephone Lung Screening Program - [place] [address] [place] [phone] Olga Minor [place] 08/07/2025 10:14 PM EDT - 08/08/2025 3:57 AM EDT Emergency [facility] Emergency [address] [place] [phone] Shortness of breath (Primary Dx); Allergic reaction, initial encounter Discharge Disposition: Home or Self Care from Last 3 Months Immunizations Immunization Administration Dates Next Due Pfizer SARS-CoV-2 COVID-19, mRNA, LNP-S, preservative free 01/01/2021 Surgical History Surgery Date Site/Laterality Comments HYSTERECTOMY PROCEDURE: HISTORICAL HYSTERECTOMY; COMMENT: cervical cancer OTHER SURGICAL HISTORY Right PROCEDURE: NE RESCJ&BRONCHOPLASTY PFRMD TM LOBEC/SGMECTOMY; COMMENT: RUL and RML ROTATOR CUFF REPAIR Right PROCEDURE: HISTORICAL ROTATOR CUFF REPAIR BREAST LUMPECTOMY Right PROCEDURE: HISTORICAL BREAST LUMPECTOMY; COMMENT: right and partial medial lumpectomy Medical History Medical History Date Comments Allergic rhinitis 05/20/2017 DX:Allergic rh initis COPD (chronic obstructive pu lmonary disease) ([facility] V24, [facility] V28) 05/20/2017 DX:COPD (chronic o bstructive pulmonary disease) ([facility]) Multiple environmental allergies 05/20/2017 DX:Multiple environmental allergies Tobacco user 05/20/2017 DX:Tobacco user Osteoporosis 11/05/2017 DX:Osteoporosis History of cervical cancer 11/05/2017 DX:Hi story of cervical cancer History of scarlet fever 11/05/2017 DX:Hist ory of scarlet fever Hypertension DX:Hypertension Hx of cancer of lung DX:Hx of ca ncer of lung Anxiety disorder DX:Anxiety diso rder Depression DX:Depression Primary insomnia DX:Primary inso mnia Lung cancer (CMS/HCC V24, CM S/HCC V28) 01/15/2019 DX:Lung cancer (HCC) Empyema of right pleural spa ce (CMS/HCC V24, CMS/[facility] V28) 01/23/2019 DX:Empyema of right pleural space [...] Sign Reading Time Taken Comments Blood Pressure 120/69 08/08/2025 1:31 AM EDT Pulse 78 08/08/2025 1:31 AM EDT Temperature 36.8 C (98.2 F) 08/08/2025 1:31 AM EDT Respiratory Rate 18 08/08/2025 1:31 AM EDT Oxygen Saturation 98% 08/08/2025 1:31 AM EDT Inhaled Oxygen Concentration - - Weight 72.6 kg (160 lb) 08/07/2025 6:17 PM EDT Height 165.1 cm (5' 5 ) 08/07/2025 6:17 PM EDT Body Mass Index 26.63 08/07/2025 6:17 PM EDT Plan of Treatment Upcoming Encounters Date Type Department Care Team (Late st Contact Info) Description 09/22/2025 2:30 PM EST Clinical Support Lung Screening Program - [place] [address] [place] [address] 09/22/2025 3:00 PM EST Appointment [facility] CT Scan [address] [place] [address] Health Maintenance Due Date Last Done Comments Colorectal Cancer Screening: Colonoscopy 1960 Zoster Vaccines (1 of 2) 1978 RSV Immunization Adult Patients (1 - Risk 50-74 years 1-dose series) 2009 Pneumococcal Vaccine: 50+ Years (2 of 2 - PCV) 05/03/2021 05/03/2020 Cholesterol Screening (Lipid Panel) 09/27/2022 Hepatitis C Screening 09/27/2022 Osteoporosis Screening (Bone Density Screening) 09/27/2022 Social Influencers of Health Screening 09/27/2022 Breast Cancer Screening 12/25/2023 12/24/2021 Falls Risk Assessment 2024 Depression Screening 10/21/2024 COVID-19 Vaccine (4 - season) 2025 10/05/2021, 01/23/2021, 01/01/2021 Influenza Vaccine (#1) 2025 , 08/15/2021, 08/02/2020, Additional history exists Hypertension/CHF/CAD Annual BMP Blood Test 08/07/2026 08/07/2025 DTaP,Tdap,and Td Vaccines (2 - Td or [...] 20 months Aged Out No longer eligible based on patient's age to complete this topic Varicella Vaccines Aged Out No longer eligible based on patient's age to complete this topic Procedures Procedure Name Priority Date/Time Associated Diagnosis Comments ECG ANNOTATED 08/09/2025 ACTIVATED PARTIAL THROMBOPLASTIN TIME STAT 08/07/2025 11:38 PM EDT PROTHROMBIN TIME WITH INR STAT 08/07/2025 11:38 PM EDT TROPONIN I HIGH SENSITIVITY STAT 08/07/2025 11:38 PM EDT RESPIRATORY VIRUS PANEL MOLECULAR STUDY STAT 08/07/2025 11:38 PM EDT XR CHEST 2 VIEWS STAT 08/07/2025 10:1 1 PM EDT ECG 12-LEAD STAT 08/07/2025 6:57 PM EDT CBC WITH AUTO DIFFERENTIAL STAT 08/07/2025 6:52 PM EDT BASIC METABOLIC PANEL STAT 08/07/2025 6:52 PM EDT CBC AND DIFFERENTIAL STAT 08/07/2025 6:52 PM EDT OLIVE SCREENING DIGITAL Routine 12/24/2021 10:12 AM EST Encounter for screening mammogram for malignant neoplasm of breast from Last 3 Months or Most Recently Relevant to Health Maintenance Results * ECG-Annotated (08/09/2025) us Provider Onbase MD ECG ORDERABLES Final Result * Respiratory virus panel molecular study (08/07/2025 11:38 PM EDT) Pathologist [facility] Adenovirus Detection by PCR Not Detected Not Detected LAB MICROBIOLOGY METHOD 08/08/2025 1:[address] [facility] Influenza A PCR Not Detected Not Detected LAB MICROBIOLOGY METHOD 08/08/2025 1:[address] [facility] Influenza B PCR Not Detected Not Detected LAB MICROBIOLOGY METHOD 08/08/2025 1:[address] [facility] Coronavirus 229E Not Detected Not Detected LAB MICROBIOLOGY METHOD 08/08/2025 1:[address] [facility] Coronavirus HKU1 Not Detected Not Detected LAB MICROBIOLOGY METHOD 08/08/2025 1:[address] [facility] Coronavirus OC43 Not Detected Not Detected LAB MICROBIOLOGY METHOD 08/08/2025 1:[address] [facility] Coronavirus NL63 Not Detected Not Detected LAB MICROBIOLOGY METHOD 08/08/2025 1:[address] [facility] Parainfluenza Virus 1 Not Detected Not Detected LAB MICROBIOLOGY METHOD 08/08/2025 1:[address] [facility] Parainfluenza Virus 2 Not Detected Not Detected LAB MICROBIOLOGY METHOD 08/08/2025 1:[address] [facility] Parainfluenza Virus 3 Not Detected Not Detected LAB MICROBIOLOGY METHOD 08/08/2025 1:[address] [facility] Parainfluenza Virus 4 Not Detected Not Detected LAB MICROBIOLOGY METHOD 08/08/2025 1:[address] [facility] RSV PCR Not Detected Not Detected LAB MICROBIOLOGY METHOD 08/08/2025 1:[address] [facility] Human Metapneumovirus A and B Not Detected Not Detected LAB MICROBIOLOGY METHOD 08/08/2025 1:[address] [facility] Rhinovirus/Entero virus Not Detected Not Detected LAB MICROBIOLOGY METHOD 08/08/2025 1:[address] [facility] Bordetella pertussis Not Detected Not Detected LAB MICROBIOLOGY METHOD 08/08/2025 1:[address] [facility] Bordetella parapertussis Not Detected Not Detected LAB MICROBIOLOGY METHOD 08/08/2025 1:[address] [facility] Mycoplasma pneumo by PCR Not Detected Not Detected LAB MICROBIOLOGY METHOD 08/08/2025 1:[address] [facility] Chlamydia pneumoniae Not Detected Not Detected LAB MICROBIOLOGY METHOD 08/08/2025 1:[address] [facility] SARS COV-2 Not Detected Not Detected LAB MICROBIOLOGY METHOD 08/08/2025 1:[address] [facility] Swab Nasopharyngeal structure / Unknown Non-blood Collection / Unknown 08/07/2025 11:38 PM EDT 08/08/2025 12:31 AM EDT [facility] - 08/08/2025 1:39 AM EDT Testing was performed using the ARKeX Respiratory Pathogen PCR Assay. All results must be correlated with the clinical findings. Results should not be used as the sole basis for diagnosis. False Negative results may occur from the presence of sequence variants in the region targeted by the assay or the presence of inhibitors. Results may be affected by concurrent antiviral/antimicrobial therapy or levels of organisms that are below the limit of detection. Wil MORTON LAB MICROBIOLOGY - GENERAL ORDERABLES Final Result Performing Organization Address [facility] Co de Phone Number [facility] [address] [place] [address], [place] [phone] * Troponin I High Sensitivity (08/07/2025 11:38 PM EDT) [facility] High Sensitivity Troponin I <3 <=54 ng/L LAB CHEMISTRY METHOD 08/08/2025 12:[address] [facility] Blood Venous blood specimen / Unknown Venipuncture / Unknown 08/07/2025 11:38 PM EDT 08/08/2025 12:31 AM EDT [facility] - 08/08/2025 12:59 AM EDT High levels of biotin in samples may falsely decrease hsTroponin values. Use caution when interpreting hsTroponin results in patients taking biotin who exhibit renal impairment (eGFR <60) or in patients taking more than 20 mg/day of biotin. Wil MORTON LAB BLOOD ORDERABLES Final Result Performing Organization Address [facility]/ZIP Co de Phone Number [facility] [address] [place] [address], [place] [phone] * APTT (08/07/2025 11:38 PM EDT) aPTT 28.7 24.1 - 39.3 sec LAB COAGULATION METHOD 08/08/2025 12:[address] [facility] Blood Venous blood specimen / Unknown Venipuncture / Unknown 08/07/2025 11:38 PM EDT 08/08/2025 12:31 AM EDT Wil MORTON LAB BLOOD ORDERABLES Final Result Performing Organization Address [facility]/ZIP Co de Phone Number [facility] [address] [place] [address], [place] [phone] * Protime-INR (08/07/2025 11:38 PM EDT) [facility] Protime 12.2 10.6 - 13.9 sec LAB COAGULATION METHOD 08/08/2025 12:[address] [facility] INR 1.0 LAB COAGULATION METHOD 08/08/2025 12:[address] [facility] Blood Venous blood specimen / Unknown Venipuncture / Unknown 08/07/2025 11:38 PM EDT 08/08/2025 12:31 AM EDT Wil MORTON LAB BLOOD ORDERABLES Final Result Performing Organization Address [facility]/ZIP Co de Phone Number [facility] [address] [place] [address], [place] [phone] * XR Chest 2 Views (08/07/2025 10:11 PM EDT) Anatomical Region Laterality Modality Body Radiographic Maddie ging 08/08/2025 8:04 AM EDT Impressions 08/08/2025 8:05 AM EDT No acute findings. -------- FINAL REPORT -------- Dictated By: Juventino Avendaño Dictated Date: 08/08/2025 08:04 ET Assigned Physician: Juventino Avendaño Reviewed and Electronically Signed By: Juventino Avendaño Signed Date: 08/08/2025 08:05 ET Workstation ID: [id number] Transcribed By: Self Edit Transcribed Date: 08/08/2025 08:04 ET Narrative 08/08/2025 8:05 AM EDT PROCEDURE: PA and lateral radiographs of the chest. HISTORY: dyspnea. COMPARISON: 10/26/2021. FINDINGS: Mildly tortuous aorta. Postsurgical distortion of the right hilum with adjacent staple line. Orthopedic anchors in the right humeral head. Bones appear diffusely demineralized. Pleural spaces, pulmonary vasculature, and cardiomediastinal contours are normal. Procedure Note Juventino Avendaño MD - 08/08/2025 PROCEDURE: PA and lateral radiographs of the chest. HISTORY: dyspnea. COMPARISON: 10/26/2021. FINDINGS: Mildly tortuous aorta. Postsurgical distortion of the right hilum withadjacent staple line. Orthopedic anchors in the right humeral head.Bones appear diffusely demineralized. Pleural spaces, pulmonaryvasculature, and cardiomediastinal contours are normal. IMPRESSION: No acute findings. -------- FINAL REPORT -------- Dictated By: Juventino Avendaño Dictated Date: 08/08/2025 08:04 ET Assigned Physician: Juventino Avendaño Reviewed and Electronically Signed By: Juventino Avendaño Signed Date: 08/08/2025 08:05 ET Workstation ID: [id number] Transcribed By: Self Edit Transcribed Date: 08/08/2025 08:04 ET us Chris Lester MD IMG XR PROCEDURES Final R esult * ECG 12 lead (08/07/2025 6:57 PM EDT) Ventricular Rate ECG 77 BPM GEMUSE Atrial Rate 77 BPM GEMUSE P-R Interval 178 ms GEMUSE QRS Duration 66 ms GEMUSE Q-T Interval 358 ms GEMUSE QTc 405 ms GEMUSE P Wave Medfield 57 degrees GEMUSE R [place] 36 degrees GEMUSE T [place] 47 degrees GEMUSE ECG Interpretation Normal sinus rhythm Normal ECG When compared with ECG of 26-OCT-2021 18:03, No significant change was found Confirmed by MD Omid, Almo ([id number]) on 08/09/2025 8:41:57 AM GEMUSE 08/07/2025 6:57 PM EDT 08/09/2025 8:41 AM EDT us Chris Lester MD ECG ORDERABLES Final Res ult GEMUSE * (ABNORMAL) CBC auto differential (08/07/2025 6:52 PM EDT) WBC 9.6 4.8 - 10.8 K/mcL LAB HEMETOLOGY METHOD 08/07/2025 7:[address] [facility] RBC 4.40 3.80 - 4.80 M/mcL LAB HEMETOLOGY METHOD 08/07/2025 7:[address] [facility] Hemoglobin 13.0 11.5 - 16.0 g/dL LAB HEMETOLOGY METHOD 08/07/2025 7:[address] [facility] Hematocrit 39.1 35.0 - 47.0 % LAB HEMETOLOGY METHOD 08/07/2025 7:[address] [facility] MCV 89.1 79.0 - 98.0 FL LAB HEMETOLOGY METHOD 08/07/2025 7:[address] [facility] MCH 29.6 27.0 - 32.0 pcg LAB HEMETOLOGY METHOD 08/07/2025 7:[address] [facility] MCHC 33.2 32.0 - 37.0 g/dL LAB HEMETOLOGY METHOD 08/07/2025 7:[address] [facility] RDW 13.4 11.0 - 15.0 % LAB HEMETOLOGY METHOD 08/07/2025 7:[address] [facility] Platelets 354 130 - 400 K/mcL LAB HEMETOLOGY METHOD 08/07/2025 7:[address] [facility] MPV 9.6 7.0 - 11.0 FL LAB HEMETOLOGY METHOD 08/07/2025 7:[address] [facility] NRBC 0.0 <1.0 % LAB HEMETOLOGY METHOD 08/07/2025 7:[address] [facility] NRBC Absolute 0.00 <0.10 K/mcL LAB HEMETOLOGY [facility] Neutrophils Relative 78.6 % LAB HEMETOLOGY METHOD 08/07/2025 7:24 PM [facility] Lymphocytes Relative 12.9 % LAB HEMETOLOGY METHOD 08/07[facility]2025 7[facility] Monocytes Relative 8.0 % LAB HEMETOLOGY METHOD 08/07/2025 7:24 PM [facility] Eosinophils Relative 0.0 % LAB HEMETOLOGY METHOD 08/07/2025 7:24 PM [facility] Basophils Relative 0.2 % LAB HEMETOLOGY METHOD 08/07/2025 7:24 PM [facility] Immature Granulocytes Relative 0.3 % LAB HEMETOLOGY METHOD 08/07/2025 7:24 PM [facility] Neutrophils Absolute 7.56(H) 1.50 - 7.00 K/mcL LAB HEMETOLOGY METHOD 08/07[facility]2025 7[facility] Lymphocytes Absolute 1.24 1.00 - 5.00 K/mcL LAB HEMETOLOGY METHOD 08/07/2025 7:24 PM [facility] Monocytes Absolute 0.77 0.20 - 1.00 K/mcL LAB HEMETOLOGY METHOD 08/07[facility]2025 7[facility] Eosinophils Absolute 0.00 0.00 - 0.50 K/[facility] LAB HEMETOLOGY METHOD 08/07/2025 7:[address] [facility] Basophils Absolute 0.02 0.00 - 0.20 K/[facility] LAB HEMETOLOGY METHOD 08/07/2025 7:[address] [facility] Immature Granulocytes Absolute 0.03 0.00 - 0.03 K/[facility] LAB HEMETOLOGY METHOD 08/07/2025 7:[address] [facility] Blood Venous blood specimen / Unknown Venipuncture / Unknown 08/07/2025 6:52 PM EDT 08/07/2025 7:10 PM EDT us Chris Lester MD LAB BLOOD ORDERABLES Meseret l Result [facility] [address] [place] [address], * Basic metabolic panel (08/07/2025 6:52 PM EDT) Sodium 141 133 - 145 mmol/L LAB CHEMISTRY METHOD 08/07/2025 7:35 PM [facility] Potassium 3.6 3.5 - 5.5 mmol/L LAB CHEMISTRY METHOD 08/07/2025 7:35 PM [facility] Chloride 108 96 - 110 mmol/L LAB CHEMISTRY METHOD 08/07/2025 7:35 PM [facility] CO2 25 21 - 32 mmol/L LAB CHEMISTRY METHOD 08/07/2025 7:35 PM [facility] Anion Gap 8 3 - 11 LAB CHEMISTRY METHOD 08/07/2025 7:35 PM [facility] Glucose 90 70 - 100 mg/dL LAB CHEMISTRY METHOD 08/07/2025 7:35 PM [facility] BUN 18 5 - 25 mg/dL LAB CHEMISTRY METHOD 08/07/2025 7:[address] [facility] Creatinine 0.85 0.50 - 1.10 mg/dL LAB CHEMISTRY METHOD 08/07/2025 7:[address] [facility] eGFR 76 >=60 mL/min/1. 73m2 LAB CHEMISTRY METHOD 08/07/2025 7:[address] [facility] Comment:Calculation based on the Chronic Kidney Disease Epidemiology Collaboration (CKD-EPI) equation refit without adjustment for race. BUN/Creatinine Ratio 21.2 LAB CHEMISTRY METHOD 08/07/2025 7:[address] [facility] Calcium 9.2 8.5 - 10.5 mg/dL LAB CHEMISTRY METHOD 08/07/2025 7:[address] [facility] Blood Venous blood specimen / Unknown Venipuncture / Unknown 08/07/2025 6:52 PM EDT 08/07/2025 7:10 PM EDT us Chris Lester MD LAB BLOOD ORDERABLES Meseret l Result [facility] [address] [place] [address], * OLIVE SCREENING DIGITAL (12/24/2021 10:12 AM EST) Anatomical Region Laterality Modality Mammography 12/22/2021 1:54 PM EST Narrative 12/24/2021 10:12 AM EST [facility] Diagnostic Imaging Department [address] [place] [address] Patient: PENELOPE WATTERS./Age/Sex: 1960 - 61 - F Unit#: [id number] Location/Status: SPDIMAM/REG CLI Mnemonic/Ordering Site: [facility] Ordering Physician: BEVERLEY ELLIS MD Olive Screening Digital - 12/23/21 - 1054 INDICATION: SCREENING COMPARISON: Outside mammograms dating back to 05/30/2016 TECHNIQUE: CC and MLO views of the breasts were obtained, using full field digital mammography with 3D tomosynthesis views in the MLO projection. Left CC view is limited due to motion artifact. Computer aided detection with the Consumer Agent Portal (CAP) 7.2-H was employed. FINDINGS: The breasts contain [...] - Incomplete needs additional imaging evaluation. 3340F, 7009F ([id number] / [id number]) , [id number] Dictating Physician: KARL PUGH MD Electronically Signed by: KARL PUGH MD Dic Date/Time: 12/24/21 1007 Sign date/Time: 12/24/21 1012 Procedure Note Karl Pugh MD - 10/10/2022 [facility] Diagnostic Imaging Department [address] [place] [id number] Patient: SUKISHLOMOTONIOPENELOPE /Age/Sex: 1960 - 61 - F Unit#: [id number] Location/Status: SPDIMAM/REG CLI Mnemonic/Ordering Site: [facility] Ordering Physician: BEVERLEY ELLIS MD Olive Screening Digital - 12/23/21 - 1054 INDICATION: SCREENING COMPARISON: Outside mammograms dating back to 05/30/2016 TECHNIQUE: CC and MLO views of the breasts were obtained, using full field digital mammography with 3D tomosynthesis views in the MLO projection. Left CCview is limited due to motion artifact. Computer aided detection with the Consumer Agent Portal (CAP) 7.2-H was employed. FINDINGS: The breasts contain [...] - Incomplete needs additional imaging evaluation.3340F, 7025F ([id number] / [id number]) , [id number] Dictating Physician: KARL PUGH MD Electronically Signed by: KARL PUGH MD Dic Date/Time: 12/24/21 1007 Sign date/Time: 12/24/21 1012 Beverley Ellis MD IMG BI PROCEDURES Final Resu lt from Last 3 Months or Most Recently Relevant to Health Maintenance Insurance [facility] MEDICAID Advance Directives Documents on File Type Date Recorded Patient Behavioral Health Care Coordinator Expl anation Health Care Decision (hx) 12/05/2018 [...] (hx) 12/05/2018 AD QUIÑONES DIRECTIVE Care Teams Field Test Engineer Relationship Specialty Start Date End Date Wil Guerrero MD [address] [place] [id number] PCP - General Internal Medicine 10/11/20
--- OUTSIDE RECORDS SUMMARY | 2025-08-16 16:29 | XMS_ITS | Data Portability ---
Author Organization [employer] [facility], [facility] Address [address] [place] [id number] Care Team Providers Care Personnel Security Specialist Name Role Phone HIM CCA OTHER CHASITY GUILLERMO Primary Care Provider [phone] Assessment Encounter Date Assessment Date Assessment LastModified by Organization Details LastModified Time 07/08/2025 07/08/2025 As noted, we wer e called to see this patient regarding concerns of cough. Evaluation in the field was performed by my senior games technician colleague, as noted above, I provided real-time direction and supervision for this visit. Patient started having a nonproductive cough last night. She has a history of pneumonia and COPD. She does not feel that this is the beginning of either of them. Patient is having nasal congestion. Medic has noticed that the patient is slightly tachycardic. Patient does appear very anxious. Her lungs are clear auscultation. Her Covid, flu, and strep are negative. Repeat check vitals show that her heart rate is improving. Patient states that she prefer to take Robitussin and Mucinex for her symptoms. She would like us to call her back in two days. She was encouraged to follow up with her PCP. Impression: Cough Plan: follow-up PCP Primary care, consider Chest x-ray Disposition: We discussed the diagnostic uncertainty of home visits and the risk associated with this. In this case, the patient and I felt this to be an acceptable and reasonable amount of risk given the benefit of avoiding an ED visit. We discussed the need to seek care urgently/emergentl y in the setting of any new or worsening serious symptoms, particularly chest pain, shortness of breath, hemoptysis. Not available 07/08/2025 14:05:49 07/10/2025 07/10/2025 I have reviewed and agree with the assessment and plan as documented by the senior games technician. I provided real-time medical direction for this encounter and was immediately available to provide additional phone-based assistance as needed. HPI: 65F with URI symptoms since Saturday. Was seen on and COVID test was negative. Today COVID +. Pt been using Robitussin and Mucinex. Also using ibuprofen. No GI symptoms. Normal PO intake. O/E: Vitals at her baseline. Lung sounds clear. Exam otherwise unremarkable per the senior games technician Impression/Plan: Encouraged to increase hydration. Recommend switching from ibuprofen to Tylenol given no significant improvement in symptoms. Advised to monitor for worsening symptoms. Red flags discussed. We discussed the diagnostic uncertainty of home visits and the risk associated with this. In this case, the patient and I felt this to be an acceptable and reasonable amount of risk given the benefit of avoiding an ED visit. We discussed the need to seek care urgently/emergentl y in the setting of any new or worsening serious symptoms, particularly weakness, dizziness, fever, chills, CP, SOB, worsening diarrhea, nausea, vomiting or any other concerns. paysola Not available 07/10/2025 11:18:26 07/13/2025 07/13/2025 As noted, we katherine e called to see this patient regarding concerns of sob. Evaluation in the field was performed by my senior games technician colleague, as noted above, I provided real-time direction and supervision for this visit. The evaluation revealed he patient is a 65 year old female with a past medical history of Cancer, COPD/Asthma, Hypertension, Hyperlipidemia, Gastroesophageal Reflux Disease (GERD) Who was recently diagnosed with COVID-19 on July 10. She presents with continued and worsening shortness of breath. She does have a history of COPD and uses oxygen at times period. She's been using over the counter cough medicine and it's not helping she's been using her. Nebulizer. She would like Prednisone. Our plan is to give her Prednisone 60 milligrams now and then provide her with a prescription for Prednisone 50 milligrams daily for four days. We will also place our own doxycycline 100 milligrams PO BID. For seven days. We discussed if the patient gets a lot worse, you'll need to be evaluated in the emergency department and may need an inpatient stay. Red flags were discussed with the patient. Impression: Acute COPD exacerbation, recent covid infection Plan: 1) prednisone 60 mg po, then script prednisone 50 mg po for 4 days 2) Doxycycline 100 mg po bid for 7 days 3) continue nebs 4) discussed red flags on when to seek Er treatment Primary care, consider ___ Disposition: stay at home We discussed the diagnostic uncertainty of home visits and the risk associated with this. In this case, the patient and I felt this to be an acceptable and reasonable amount of risk given the benefit of avoiding an ED visit. We discussed the need to seek care urgently/emergentl y in the setting of any new or worsening serious symptoms, particularly worsening sob, chest pain fever or weakness [email or web address] Not available 07/13/2025 20:00:26 08/05/2025 08/05/2025 As noted, we katherine e called to see this patient regarding concerns of Blood pressure concern. Evaluation in the field was performed by my senior games technician colleague, as noted above, I provided real-time direction and supervision for this visit. Patient states that she was diagnosed with Covid at the end of June. She states that she went to the emergency department on August 02 and was started on a seatback and steroids. She states that the notice of her blood pressure was low in the emergency department. When she went to see her primary care physician her blood pressure was again low at 100/60. She states that her systolic is usually in the 120s to 130s. Patient's blood pressure currently is 123/87. Patient does take losartan and Lasix. Her lungs are clear to auscultation as per medic. Patient is taking Robitussin for the cough. She states her main concern was the blood pressure. I would advise her to check her blood pressure twice a day and to keep a record. We can also reevaluate the patient on Saturday to see how she is feeling and to check her blood pressure. Patient is agreeable. Impression: Low blood pressure, URI Plan: Reevaluation on 08/07 Primary care, consider labs Disposition: We discussed the diagnostic uncertainty of home visits and the risk associated with this. In this case, the patient and I felt this to be an acceptable and reasonable amount of risk given the benefit of avoiding an ED visit. We discussed the need to seek care urgently/emergentl y in the setting of any new or worsening serious symptoms, particularly Lightheadedness/sy ncope, vomiting/dehydrati on, chest pain, shortness of breath. Not available 08/05/2025 11:19:11 Plan of Treatment Reminders Order Date Submit Date Provider Last Modified By Organization Details Last Modified Time Details Appointments None recorded. Lab rapid flu (A+B) 2024 [facility], [address] [place] [address], [address] [place] [address] 5 12:38:06 rapid SARS CoV 2 Ag, QL IA, respiratory specimen 2024 [facility], [address] [place] [address], [address] [place] [address] 5 12:38:07 rapid flu (A+B) 2024 [facility], [address] [place] [address], [address] [place] [address] 5 15:43:22 rapid SARS CoV 2 Ag, QL IA, respiratory specimen 2024 [facility], [address] [place] [address], [address] [place] [address] 5 15:43:22 rapid flu (A+B) 2024 [facility], [address] [place] [address], [address] [place] [address] 5 16:17:58 rapid SARS CoV 2 Ag, QL IA, respiratory specimen 2024 [facility], [address] [place] [address], [address] [place] [address] 5 16:17:58 rapid strep group A, throat 2024 [facility], [address] [place] [address], [address] [place] [address] 16:17:59 Referral None recorded. Procedures None recorded. Surgeries None recorded. Imaging electrocard iogram 2024 025 [facility], [address] [place] [address], [address] [place] [address] 5 11:09:30 Medication Orders ipratropium 0.5 mg-albutero l 3 mg (2.5 mg base)/3 mL nebulizatio n soln 2024 025 [facility]09, [address] [place] [address], [id number], 10:55:12 levofloxaci n 750 mg tablet 2024 [facility] #38853, [address] [place] [address], [id number], 10:59:02 levofloxaci n 750 mg tablet 2024 [facility] #66534, [address] [place] [address], [id number], 10:59:14 dextrometho rphan-guaif enesin 10 mg-100 mg/5 mL oral syrup 2024 [facility] #73733, [address] [place] [address], [id number], 10:59:46 ipratropium 0.5 mg-albutero l 3 mg (2.5 mg base)/3 mL nebulizatio n soln [email or web address] [place] [address] [facility] #90843, [address] [place] [address], [id number], 18:57:40 prednisone 50 mg tablet 2024 025 [facility] #42873, [address] [place] [address], [id number], 05:01:02 prednisone 20 mg tablet [email or web address] [facility] #18186, [address] [place] [address], [id number], 18:57:40 ipratropium 0.5 mg-albutero l 3 mg (2.5 mg base)/3 mL nebulizatio n soln [email or web address] [facility] #52019, [address], [place], [id number], 18:57:39 doxycycline hyclate 100 mg tablet 2024 025 [facility] #65641, [address], [place], [id number], 05:01:06 doxycycline hyclate 100 mg tablet 2024 025 [facility] #24853, [address], [place], [id number], 05:01:06 Patient TargetsNo targets recorded. Patient InstructionsNo instructions recorded. Reason for Referral None Reported. Results Created Date Observation Date Name Description Value Unit Range Abnormal Flag Note LastModifiedBy Organization Detail LastModifiedTime 08/07/2008/07/2025 elect odell morales am No observ ation record ed. aci [address], [phone] 08/07/2025 11:09:28 Result Notes None recorded. Medical Equipment None Reported. Allergies Allergen ID Allergen Name Allergen Category Reaction Reaction Severity Criticality Documentation Date Start Date Code Code System Note Provider Name and Address Organization Details Recorded Time 38331 nafcillin medicatio n Not available Not available Not available 07/08/2025 7233 RxNorm Not Available [facility] 5 08:25:30 3736 Product containin g penicilli n (product) medicatio n Not available Not available Not available 08/29/2023 24800 8001 SNOMED Not Available [facility] - [facility] 4 03:48:33 Medications Name Sig Start Date Stop Date Status Note LastModified by Organization Details LastModified Time cyclobenzap rine 10 mg tablet TAKE 1 TABLET BY MOUTH THREE TIMES DAILY FOR 5 DAYS FOR MUSCLE SPASM active Not Available Not Available No t Available prednisone 10 mg tablet Take w/ food- take 5 tabs orally for 2 days then 4 tabs orally for 2 days then 3 tabs orally for 2 days then 2 tabs orally for 2 days, then 1 tab orally for 2 days active Not Available Not Available No t Available nitrofurant oin macrocrysta l 50 mg capsule TAKE 1 CAPSULE BY MOUTH AT BEDTIME active Not Available Not Available No t Available doxycycline hyclate 100 mg capsule TAKE 1 CAPSULE BY MOUTH 2 TIMES A DAY FOR 10 DAYS. active Not Available Not Available No t Available albuterol sulfate 2.5 mg/3 mL (0.083 %) solution for nebulizatio n USE 1 VIAL VIA NEBULIZER EVERY 4 HOURS NEEDED FOR WHEEZING active Not Available Not Available No t Available trazodone 50 mg tablet TAKE 1 TABLET BY MOUTH DAILY AT BEDTIME NEEDED active Not Available Not Available No t Available cetirizine 10 mg tablet active Not Available Not Available Not Available cefpodoxime 200 mg tablet active Not Available Not Available Not Available azithromyci n 250 mg tablet TK 2 TS PO ON DAY 1, THEN TK 1 T PO D FOR 4 DAYS active Not Available Not Available No t Available levalbutero l 0.63 mg/3 mL solution for nebulizatio n USE 3 ML VIA NEBULIZER THREE TIMES DAILY NEEDED FOR WHEEZING OR SHORTNESS OF BREATH active Not Available Not Available No t Available benzonatate 200 mg capsule TAKE 1 CAPSULE BY MOUTH THREE TIMES DAILY FOR 7 DAYS NEEDED FOR COUGH active Not Available Not Available No t Available prednisone 20 mg tablet TAKE 2 TABLETS BY MOUTH DAILY FOR 5 DAYS active Not Available Not Available No t Available alendronate 70 mg tablet TAKE 1 TABLET BY MOUTH 1 TIME A WEEK 30 MINUTES BEFORE FIRST FOOD OR BEVERAGE OR MEDICINE OF THE DAY WITH WATER active Not Available Not Available No t Available methylpredn isolone 4 mg tablet TAKE 6 TABLETS BY MOUTH ONCE DAILY FOR 3 DAYS THEN 4 TABLETS DAILY FOR 3 DAYS THEN 2 TABLETS DAILY FOR 3 DAYS active Not Available Not Available No t Available clobetasol 0.05 % topical cream APPLY TOPICALLY TO THE AFFECTED AREA TWICE DAILY FOR 10 DAYS active Not Available Not Available No t Available naproxen 250 mg tablet TAKE 1 TABLET BY MOUTH THREE TIMES DAILY WITH FOOD OR MILK NEEDED active Not Available Not Available No t Available clindamycin HCl 150 mg capsule TAKE 1 CAPSULE BY MOUTH EVERY 6 HOURS UNTIL ALL TAKEN active Not Available Not Available No t Available ciprofloxac in 250 mg tablet TAKE 1 TABLET BY MOUTH TWICE DAILY active Not Available Not Available No t Available dextrometho rphan-guaif enesin 10 mg-100 mg/5 mL oral syrup Take 10 mL every 4 hours by oral route as needed for 5 days. 2024 active Not Available Not Available Not Avai lable ciprofloxac in 500 mg tablet TAKE 1 TABLET BY [...] Not Available Not Available No t Available pantoprazol e 40 mg tablet,elizabeth yed release TAKE 1 TABLET BY MOUTH EVERY DAY active Not Available Not Available No t Available prednisone 50 mg tablet Take 1 tablet every day by oral route in the morning for 5 days. 07/25 completed Not Available Not Available Not Available montelukast 10 mg tablet TAKE 1 TABLET BY MOUTH EVERY DAY active Not Available Not Available No t Available codeine 10 mg-guaifene sin 100 mg/5 mL oral liquid TAKE 10 ML BY MOUTH EVERY 6 HOURS FOR 5 DAYS NEEDED active Not Available Not Available No t Available furosemide 20 mg tablet TAKE 1 TABLET BY MOUTH EVERY DAY active Not Available Not Available No t Available levalbutero l 1.25 mg/3 mL solution for nebulizatio n INHALE THE CONTENTS OF 1 VIAL VIA NEBULIZER TWICE DAILY FOR 30 DAYS active Not Available Not Available No t Available levofloxaci n 750 mg tablet TAKE 1 TABLET BY MOUTH EVERY DAY FOR 4 DAYS active Not Available Not Available No t Available methylpredn isolone 4 mg tablets in a dose pack FOLLOW PACKAGE DIRECTION S active Not Available Not Available No t Available albuterol sulfate HFA 90 mcg/actuati on aerosol inhaler INHALE 2 PUFFS BY MOUTH EVERY 4 HOURS NEEDED FOR SHORTNESS OF BREATH OR WHEEZING active Not Available Not Available No t Available ipratropium bromide 42 mcg (0.06 %) nasal spray USE 2 SPRAYS IN EACH NOSTRIL THREE TIMES DAILY NEEDED FOR ALLERGY SYMPTOMS active Not Available Not Available No t Available ondansetron 4 mg disintegrat ing tablet DISSOLVE 1 TABLET ON THE TONGUE EVERY 8 HOURS FOR 3 DAYS NEEDED FOR NAUSEA OR VOMITING active Not Available Not Available No t Available losartan 100 mg tablet TAKE 1 TABLET BY MOUTH EVERY DAY active Not Available Not Available No t Available fluticasone propionate 50 mcg/actuati on nasal spray,suspe nsion active Not Available Not Available Not Available metronidazo le 0.75 % topical gel APPLY TO AFFECTED AREA DAILY DIRECTED active Not Available Not Available No t Available doxycycline hyclate 100 mg tablet Take 1 tablet twice a day by oral route for 7 days. 07/28 completed Not Available Not Available Not Available naproxen 500 mg tablet TAKE 1 TABLET BY MOUTH TWICE DAILY WITH FOOD OR MILK FOR 14 DAYS NEEDED active Not Available Not Available No t Available mometasone 0.1 % topical cream APPLY TOPICALLY TO THE AFFECTED AREA TWICE DAILY FOR 7 DAYS active Not Available Not Available No t Available Tylenol Extra Strength 500 mg tablet 2 tabs now 2022 active Not Available Not Available Not Avai lable cyclobenzap rine 5 mg tablet TAKE 1 TABLET BY MOUTH EVERY DAY AT BEDTIME NEEDED active Not Available Not Available No t Available rosuvastati n 10 mg tablet TAKE 1 TABLET BY MOUTH DAILY active Not Available Not Available No t Available nitrofurant oin monohydrate /macrocryst als 100 mg capsule TAKE 1 CAPSULE BY MOUTH EVERY 12 HOURS WITH FOOD FOR 7 DAYS active Not Available Not Available No t Available levalbutero l HFA 45 mcg/actuati on aerosol inhaler INHALE 2 PUFFS BY MOUTH EVERY 6 HOURS NEEDED FOR SHORTNESS OF BREATH OR WHEEZING active Not Available Not Available No t Available calcium 600 mg (as carbonate)- vitamin D3 10 mcg (400 unit) tablet TAKE 1 TABLET BY MOUTH DAILY WITH A MEAL active Not Available Not Available No t Available cholecalcif nena (vitamin D3) 50 mcg (2,000 unit) capsule TAKE 1 CAPSULE BY MOUTH DAILY active Not Available Not Available No t Available cholecalcif nena (vitamin D3) 50 mcg (2,000 unit) tablet TAKE 1 TABLET BY MOUTH EVERY DAY active Not Available Not Available No t Available ProChamber USE DIRECTED active Not Available Not Available No t Available roflumilast 500 mcg tablet TAKE 1 TABLET BY MOUTH DAILY active Not Available Not Available No t Available Anoro Ellipta 62.5 mcg-25 mcg/actuati on powder for inhalation INHALE 1 PUFF BY MOUTH EVERY DAY active Not Available Not Available No t Available Stiolto Respimat 2.5 mcg-2.5 mcg/actuati on solution for inhalation INHALE 2 PUFFS INTO THE LUNGS ONCE DAILY DIRECTED - USE AT THE SAME TIME EVERY DAY active Not Available Not Available No t Available roflumilast 250 mcg tablet TAKE 1 TABLET BY MOUTH DAILY active Not Available Not Available No t Available Evenity 210 mg/2.34 mL (105 mg/1.17 mL x 2) subcutaneou s syringe INJECT THE CONTENTS OF 2 SYRINGES UNDER THE SKIN EVERY 30 DAYS active Not Available Not Available No t Available Maria Del Rosario-Tussin DM 10 mg-100 mg/5 mL oral liquid TAKE 10 ML BY MOUTH EVERY 4 HOURS FOR 5 DAYS NEEDED active Not Available Not Available No t Available Breztri Aerosphere 160 mcg-9mcg-4. 8mcg/actuat ion HFA aerosol inhaler INHALE 2 PUFFS BY MOUTH TWICE DAILY active Not Available Not Available No t Available Trelegy Ellipta 200 mcg-62.5 mcg-25 mcg powder for inhalation INHALE 1 PUFF BY MOUTH EVERY DAY active Not Available Not Available No t Available Paxlovid 300 mg (150 mg x 2)-100 mg tablets in a dose pack active Not Available Not Available Not Available Vitals Date Recorded Body temperature Body weight Body height Oxygen saturation Oxygen saturation in Arterial blood by Pulse oximetry Heart rate Respiratory rate Systolic And Diastolic Provider Name and Address Organization Details Last Updated DateTime 5 98.1 [degF] 88057.7 2 g 165.1 cm 98 % 98 % 106 /min 17 /min 152/94 mm[Hg] Not Available [facility] 5 13:47:04 Date Recorded Respiratory rate Body temperature Oxygen saturation Oxygen saturation in Arterial blood by Pulse oximetry Heart rate Systolic And Diastolic Provider Name and Address Organization Details Last Updated DateTime 5 18 /min 96.8 [degF] 96 % 96 % 99 /min 106/69 mm[Hg] Not Available [facility] 5 11:05:46 Date Recorded Body weight Body temperature Heart rate Oxygen saturation Oxygen saturation in Arterial blood by Pulse oximetry Respiratory rate Body height Systolic And Diastolic Provider Name and Address Organization Details Last Updated DateTime 5 46901.7 2 g 97.9 [degF] 84 /min 98 % 98 % 18 /min 165.1 cm 145/98 mm[Hg] Not Available [facility] 18:52:51 Date Recorded Respiratory rate Body temperature Body height Body weight Heart rate Oxygen saturation Oxygen saturation in Arterial blood by Pulse oximetry Systolic And Diastolic Systolic And Diastolic Provider Name and Address Organization Details Last Updated DateTime 16 /min 97.8 [degF] 165.1 cm 13065.7 2 g 88 /min 96 % 96 % 113/79 mm[Hg] 123/87 mm[Hg] Not Available [facility] - 10:52:23 Date Recorded Heart rate Respiratory rate Body temperature Oxygen saturation Oxygen saturation in Arterial blood by Pulse oximetry Systolic And Diastolic Provider Name and Address Organization Details Last Updated DateTime 120 /min 18 /min 100.5 [degF] 99 % 99 % 137/81 mm[Hg] Not Available [facility] - 10:36:46 Social History None recorded. Functional Status None recorded. Mental Status None recorded. Family History Nothing Reported. Medical History No medical history recorded. Gynecological HistoryNo gynecological history recorded. Obstetrics History GPAL:G 0 P 0 0 0 0 Past Encounters Encounter ID Performer Location Encounter Start Date Encounter Closed Date Diagnosis/Indication Diagnosis SNOMED-CT Code Diagnosis ICD10 Code Diagnosis IMO Codes Diagnosis Note [id number] Tiki Reeves MD [facility] [address] [place] [phone] 08/29/2023 12:37:22 08/30/2023 12:58:36 Respiratory tract infection 566997337 J98.8 bmp done-non concerning in case covid [...] 24 hours for her weight Urinary symptoms 7490488 08 R39.9 Will call if urine culture reveals bacteria resistant to Cipro. Advised to stay well-hydra ken. I requested she hold the nitrofuran toin again while she is on the Cipro. Sinus tachycardia 910171 01 R00.0 Patient has no chest pain likely due to cough and low-grade temp [id number] Savanna Hicks MD [facility] [place] [id number] 07/09/2024 12:22:38 07/09/2024 21:01:10 Acute exacerbation of chronic obstructive pulmonary disease 294000613 J44.1 [id number] Zeferino Messina MD [place] [id number] 07/08/2025 13:46:59 07/08/2025 15:38:17 Acute cough 0165302025 39257847 R05.0 [id number] Evelyne Dumont MD [address] [phone] 07/10/2025 11:05:40 07/12/2025 23:39:03 Viral upper respiratory tract infection 651740921 J06.9 [id number] MATTHEW AN MD [address] [phone] 07/13/2025 18:52:46 07/13/2025 22:23:24 Acute exacerbation of chronic obstructive pulmonary disease 572194197 J44.1 [id number] Zeferino Messina MD [address] [phone] 08/05/2025 10:52:14 08/05/2025 17:58:13 Blood pressure taking 94520733 Z01.30 [id number] ELEANOR NEVES MD [address] [phone] 08/07/2025 10:36:00 08/07/2025 19:36:14 Community acquired pneumonia 961595298 J18.9 [id number] Evaluation in the field was performed by my senior games technician colleague, as noted above, I provided real-time direction and supervisio n for this visit. The evaluation revealed a 65-year-ol d female with a history of cancer, COPD/asthm a, hypertensi on, hyperlipid emia, and GERD, presenting for reevaluati on of persistent cough with sputum production and BP recheck following recent COVID infection and COPD exacerbati on treatment. Patient was diagnosed with COVID-19 in late June. She presented to the ED on 08/02 and was started on azithromyc in and oral methylpred nisolone for presumed COPD exacerbati on, along with Mucinex for cough. She was seen by our team yesterday for concern regarding low blood pressure that was found to be within normal limits. Today, she reports persistent cough with thick sputum, chest pain with coughing, and low-grade fever. She is on the final day of azithromyc in and steroids. She denies increased shortness of breath, dizziness, or syncope.Sh francisca notes that her BP was reportedly low during prior ED and PCP visits (around 100/60), though her usual systolic is 120 1 30 mmHg. Vital Signs:BP 137/81 , HR 120 , RR 18, Temp 100.5 F, SpO2 99% on room airExam:Ge neral: Alert, oriented, coughing, no acute respirator y distress.L ungs: Coarse breath sounds bilaterall y, no wheezing or rales appreciate d.Heart: Regular rhythm, tachycardi c.Extremit ies: No lower extremity edema.Neur o: No focal deficits.C OVID and Influenza tests: NegativeEC G: QTc 392, no ischemic changes.Al cricketgitrina: Reviewed. Impression :COPD/asth ma overlap with persistent cough, sputum production , and low-grade fever following recent COVID infection and azithromyc in/steroid therapy. Findings suggest community- acquired pneumonia or secondary bacterial bronchitis post-viral infection. Mild tachycardi a and fever present; no respirator y failure. BP normalized . Plan:Start Levofloxac in 750 mg PO daily 5 days for CAP coverage (given recent azithromyc in use and penicillin allergy). First dose administer ed by senior games technician. Duoneb administer ed by senior games technician for acute airway support.Co ntinue inhaler regimen as prescribed for COPD/asthm a control.En courage adequate hydration, rest, and airway clearance using humidified air.Prescr iption: Dextrometh clary G uaifenesin 10 mg 1 00 mg/5 mL oral syrup, sent to pharmacy. Advised to discontinu e Mucinex while using this medication .Hold additional steroids unless increased wheezing or respirator y distress occurs.Mon itor temperatur e and heart rate at home. If fever, worsening cough, dyspnea, or chest pain develops, seek ED evaluation .BP normalized today; continue monitoring with primary care, and adjust antihypert ensive therapy if persistent ly elevated.F ollow-up: With PCP in 3 5 days, or sooner if symptoms worsen.Red flags discussed .Primary care, consider__ _ Dispositio n: We discussed the diagnostic uncertaint y of home visits and the risk associated with this. In this case, the patient and I felt this to be an acceptable and reasonable amount of risk given the benefit of avoiding an ED visit. We discussed the need to seek care urgently/e mergently in the setting of any new or worsening serious symptoms, particular ly If beathing gets worse , chest pain that happens even when you are not coughing, fever of 101 F or higher, or fever that doesn t go away after starting antibiotic s, feeling your heart racing, feeling lightheade d, confused, or unusually weak, coughing up blood or pink-tinge d mucus Health Concerns Section Related Observation LastModified by Organization Detai ls LastModified Time None Recorded Concern Status LastModified by Organization Details LastModified Time None Recorded Advance Directives Directive None Recorded Payers Insurance Date Sequence Insurance Name Policy Number Policy Urrutia Covered Member ID Urrutia Member ID Guarantor Name 08/06/2025 1 [facility] - DOS ON OR AFTER 2023 - DUAL ELIGIBLE - FDC OPTIONS AND ONE CARE (MEDICARE REPLACEMENT/AD VANTAGE - HMO) Penelope Watters [id number] Penelope Watters Notes Date Note Type Note Provider Name and Address Organization Details Recorded Time 07/08/2025 text/html ROS as noted in the HPI [facility] Nurse Triage Notes (Sophia Jorgensen): Reason For Request: Pt reporting coughing all night>feeling achey>horrible headache to the point of not being able to lift her head>overall not feeling well Patient Reports: COPD; Sputum increase ; Cough; Shortness of breath with exertion Denies: Increased work of breathing/labored with or without fever Unable to speak in full sentences without distress Discoloration of skin -cyanosis Needs to sleep sitting up, can t catch breath Shortness of breath in setting of confusion Cough, fever greater than 2 days Lower extremity swelling History of asthma, increased use of inhaler COVID Exposure Pain with inspiration Chief Complaints: Cough, Common Cold, Breathing Problems PMH: Cancer, COPD/Asthma, Hypertension, Hyperlipidemia, Gastroesophageal Reflux Disease (GERD) PMH Reviewed at 07/08/2025 Allergies Reviewed at 07/08/2025 Comments: 65 y.o female complains of Cough Patient self referring Symptoms started overnight last night denies any fever, endorses chills body aches and bad headaches endorses nasal congestion and nagging cough, increased shortness of breath and feels like her chest is heavy sore throat and raspy voice. denies any nausea, vomiting or diarrhea but does feel bloated and with a lot of flatulence Oxygen 2L at night only. no known sick contacts but has been in and out of md offices for 2 weeks denies any kidney issues not on any blood thinners requesting insted assessment I provided information on the mobile health provider response time and advised the patient and/or caregiver to monitor reported signs and symptoms. I discussed the warning signs of when to seek emergency care. Envelope Sealing Machine Operator Organization Information for [employer] Legal Name: Stat. Address: [address] [place] [address], Pruner: Claude Hong MD [place] No.: [id number] Envelope Sealing Machine Operator POC Test Results from [facility] Rapid strep test (13:46:02) Strep: - Rapid influenza antigen (13:46:03) Flu: - Rapid COVID antigen (13:46:05) COVID: - ....................... ....................... ....................... ....................... ....................... ....................... ... Envelope Sealing Machine Operator Note From Sarah Beth Jose: Dispatched to the above address for 65 y/f with a cc of flu like symptoms. Proper ppe was worn throughout the call. Upon arrival: Pt AOx4 in a fowlers position in the kitchen room chair. Pt was noted to have a dry cough (non productive). Pt greeted [facility] and gave a verbal report. Pt stated that around 12 am today she woke up with a new onset of flu like symptoms: body aches/chills/dry cough/sore throat. Pt stated that she has a significant hx of airway problems (used to have lung cancer/copd/hx of pneumonia), and is on home 02 at 2 lpm as needed. Pt stated that she called [facility] today to make sure she doesn't have covid/pneumonia/or other issues. Pt stated that is she feeling like she is congested in her chest and needs to cough it up, but is unable to. - Airway: Patent - Breathing: equal chest rise and fall - LS: clear, slightly diminished in the bases, (-) wheezing/Ronchi/stridor /crackles - Skin: pink, warm, dry - Pupils: PERRL - CMSx4 - Lower extremity: no edema . ABD: soft, non tender, no discoloration - Back: no crepitus. pt denied to pain/dizziness/nausea/v omiting/blood in urine/difficulty urinating/fever/diarrhe a/constipation/falls/SO B. Pt stated that recently took Tylenol, and feels better, and her only cc now is the cough. HEENT. skin in tact with no deformity. Pupils were equal and reactive to light bilaterally. Nose and mouth were unobstructed. Trachea midline, jugular veins were nondistended in seated position. FAST ED score: (-) COVID/FLU A/FLU B/STREP. [facility]: gave pt education and assurance. Pt stated that if anything changes/gets worse she will either call 911/[facility]. Pt agreed with [facility] and stated she will take some over the counted medication for her cough. MIH clear. All times approximate. [facility] Lab Orders: rapid flu (A+B): Performed rapid SARS CoV 2 Ag, QL IA, respiratory specimen: Performed rapid strep group A, throat: Performed ....................... ....................... ....................... ....................... ....................... ....................... ... [facility] Consulted: Zeferino Messina ....................... ....................... ....................... ....................... ....................... ....................... ... Disposition: Fulfilled Zeferino Messina MD [address] [place] [address],[address], [place], [phone], [employer] 07/08/2025 14:27:53 07/10/2025 text/html [facility] Nurse Triage Notes (Jacque Diggs): Reason For Request: Follow up visitDenies: Increased work of breathing/labored with or without fever Unable to speak in full sentences without distress Discoloration of skin -cyanosis Needs to sleep sitting up, can t catch breath Shortness of breath in setting of confusion Chief Complaints: Common Cold, High Blood Pressure, Heart Rate ProblemsPMH: Cancer, COPD/Asthma, Hypertension, Hyperlipidemia, Gastroesophageal Reflux Disease (GERD)PMH Reviewed at 07/10/2025:12Allergies Reviewed at 07/10/2025:12Comments: 65 y.o female complains of Common Cold, High Blood Pressure, Heart Rate Problems History Lung CA with right lebectomy 6.5 years ago, supplemental o2 2L at HS Patient seen 07/08 for cold symptomsShe was called in follow up today per [facility] requestShe reports headache, and is concerned that it is due to her blood pressure vs cold symptomsShe endorses her cold being all in her head, +head pressure and sinus pressure/congestionHas a nonproductive cough, body aches, weakness and fatigueShe denies shortness of breath, no dizzinessDenies nausea, vomiting or diarrheaCurrent heart rate 97 per oximeter, o2 sat normal, states her heart rate has consistently been in the 100s- her blood pressure cuff needs new batteries and has been unable to checkPatient takes losartan dailyPoor PO intakeShe has been taking tylenol and robitussin DMShe would like to be evaluated I provided information on the mobile health provider response time and advised the patient and/or caregiver to monitor reported signs and symptoms. I discussed the warning signs of when to seek emergency care. Envelope Sealing Machine Operator Organization Information for [employer] Legal Name: [facility] TransportationAddress: [address] [facility], [place] [address], USMedical Director: Vega Garcia [facility] No.: [id number] Envelope Sealing Machine Operator POC Test Results from [employer] Rapid COVID antigen (11:00:51)COVID: +Attachments uploaded as part of this test result can be found under Documents section. Rapid influenza antigen (11:00:55)Flu: - ....................... ....................... ....................... ....................... ....................... ....................... ... Envelope Sealing Machine Operator Note From [employer]: Arrived to find patient in her residence. Ambulating with a cane. Patient aox4. GCS 15 skin pink warm and dry. Patient endorsed head pressure and coughing since . Was seen by [facility] and tested for flu and Covid which was negative. Coughing up clear phlegm. Patient lung sounds clear and equal. VS as noted. Afebrile. Covid test positive today. Adequate PO hydration and intake. No red flag symptoms. [facility] called advised OTC medications and rest. Patient in agreement. . [facility] Lab Orders: rapid flu (A+B): Performed rapid SARS CoV 2 Ag, QL IA, respiratory specimen: Performed ....................... ....................... ....................... ....................... ....................... ....................... ... [facility] Consulted: Evelyne Dumont ....................... ....................... ....................... ....................... ....................... ....................... ... Disposition: Fulfilled Evelyne Dumont MD [address], [place], [address], [employer] mLEDMOHAMUD DELUNA 07/10/2025 15:16:25 07/13/2025 text/html ROS as noted in the HPI [facility] Nurse Triage Notes (Jacque Diggs): Reason For Request: pt texted positive for covid, mentions unproductive cough, difficulty breathing Denies: Increased work of breathing/labored with or without fever Unable to speak in full sentences without distress Discoloration of skin -cyanosis Needs to sleep sitting up, can t catch breath Shortness of breath in setting of confusion Chief Complaints: Breathing Problems PMH: Cancer, COPD/Asthma, Hypertension, Hyperlipidemia, Gastroesophageal Reflux Disease (GERD) PMH Reviewed at 07/13/2025 Allergies Reviewed at 07/13/2025: Comments: 65 y.o female complains of Breathing Problems Additional PMH [facility] CA with right lobectomy 6.5 yrs ago Patient seen by our service 07/10 and tested positive for covid Patient calls in today anxious and teary Patient is pacing and hyper, post albuterol inhaler Patient reports croupy, hacky nonproductive cough shortness of breath, +wheezes Chest congestion, she can't expectorate the phlegm Sat is 95% on RA, wears supplemental o2 at night, has not had to wear during the day Patient is going to do a neb treatment She endorses a headache since last week, no dizziness Patient feeling too worked up to answer more questions She would like to be evaluated I provided information on the mobile health provider response time and advised the patient and/or caregiver to monitor reported signs and symptoms. I discussed the warning signs of when to seek emergency care. ....................... ....................... ....................... ....................... ....................... ....................... ... Envelope Sealing Machine Operator Note From Lisa Lee: Sent to a call for a pt complaining of cough/sob. SC8 arrives on scene, pt is alert and oriented, airway is patent. Pt started complaining of URI symptoms on , was evaluated by [facility] then re-evaluated by [facility] on Saturday and tested positive for Covid. [...] Abdomen: soft, non-tender, no distention; Back: unremarkable; Extremities: no peripheral edema; Skin: pink, warm, dry; [facility] consulted and orders Duo neb, Prednisone 60mg PO, and Doxycycline 100mg PO. [facility] sends script to pt's pharmacy. 5 med rights verified; Duo neb, Prednisone 60mg PO, and Doxycycline 100mg PO administered without incident. Red flags discussed. Pt has no further questions. [facility] Medication Orders: ipratropium 0.5 mg-albuterol 3 mg (2.5 mg base)/3 mL nebulization soln: Not Administered Comment: Double order prednisone 20 mg tablet: Not Administered Comment: Double order ipratropium 0.5 mg-albuterol 3 mg (2.5 mg base)/3 mL nebulization soln: Not Administered Comment: Double order doxycycline hyclate 100 mg tablet: Not Administered Comment: Double order doxycycline hyclate 100 mg tablet: Not Administered Comment: Double order ....................... ....................... ....................... ....................... ....................... ....................... ... [facility] Consulted: Matthew An ....................... ....................... ....................... ....................... ....................... ....................... ... Disposition: Fulfilled MATTHEW AN MD [address] [place] [address],[address] [facility], [place], [phone], [employer] 07/13/2025 20:08:43 08/05/2025 text/html ROS as noted in the HPI HPI: Bkea called in to the CR[facility] reports she has a URI, seen in the ER Mon 08/02, Rx'd methylprednisolone & Z pack, which she started yesterday 08/03. Mbr sts she went to the ER again yesterday due to continued sx & reports BP was lower than normal 117/70, 103/74. Mbr is very anxious re her BP readings. Sts she made f/u appt at PCP office today for BP re-check & it was 100/60. Mbr sts both PCP office & ED providers not concerned and advised her to increase fluids. Mbr sts her BP is typically 120s-130s/80s. Mbr denies change in BP medications. Mbr reports she has not been feeling well due to URI, SOB, also c/o lightheadedness (worse w/ position changes), and BOSS (Mbr was unsure how long she has had these sx for). Mbr denies dizziness at time of call, denies syncope or pre syncope, or further s/sx. Beka stevens she has been using nebulizer Q 4 hr for SOB and last night woke up gasping needing her nebulizer. Mbr is on day 2 of steroids. Mbr is speaking full clear sentences during phone call, mbr is hyperverbal, anxious and tearful. No wheeze or stridor noted. Mbr was advised if s/x worsen, jermaine worsening SOB, CP or dizziness/syncope, to call 911 & return to ED. Mbr was advised to hydrate, rest, take meds prescribed. Mbr was offered [facility] for evaluation and reassurance, which she requests to be for tomorrow. Mbr was advised referral would be submitted. This health technical writer also suggested mbr to outreach to her therapist, beka stevens she has through [facility]. Beka thanked this health technical writer for assistance. ....................... ....................... ....................... ....................... ....................... ....................... ... [facility] Nurse Triage Notes (Mari Ambrosio): Reason For Request: for tomorrow 08/05/25WEAR A MASK Chief Complaints: Low Blood Pressure, Breathing Problems PMH: Cancer, COPD/Asthma, Hypertension, Hyperlipidemia, Gastroesophageal Reflux Disease (GERD) PMH Reviewed at 08/04/2025:58 Allergies Reviewed at 08/04/2025:58 Comments: HPI reviewed ....................... ....................... ....................... ....................... ....................... ....................... ... Envelope Sealing Machine Operator Note From Álvaro Ward: [facility] visit for female patient with complaint of varying blood pressures and some ongoing symptoms from recent bout of Covid. Patient presents at home, noting systolic blood pressures, dipping lower than her baseline in recent days. Patient denies any symptoms during these episodes, but was alarmed by the reading. She was getting on her own blood pressure machine as well as when assessed by primary care and emergency department. Patient does have history of hypertension for which she takes losartan in addition to respiratory history with COPD and status post lung cancer. Patient presents noted to be anxious, however in no obvious distress. Patient speaking in full sentences. Vital signs taken as listed. No concerns about blood pressure at this time. No fever noted. Lung sounds clear bilaterally. Consult consulted with [facility] Dr. Messina who reviewed patient s concerns and encouraged her to continue monitoring blood pressures at home as well as as her position and which arm she is using and to use consistent technique and evaluating blood pressure. Follow up [facility] visit scheduled for a few few days out. Reviewed red flags. Patient education provided. ....................... ....................... ....................... ....................... ....................... ....................... ... [facility] Consulted: Zeferino Messina ....................... ....................... ....................... ....................... ....................... ....................... ... Disposition: Fulfilled Zeferino Messina MD [address], [place], [address], [employer] 08/05/2025 13:42:40 08/07/2025 text/html ROS as noted in the HPI HPI: [facility] member states concern regarding LBP. ....................... ....................... ....................... ....................... ....................... ....................... ... [facility] Nurse Triage Notes (Sophia Jorgensen): Reason For Request: Blood Pressure check/ revisit Chief Complaints: Low Blood Pressure PMH: Cancer, COPD/Asthma, Hypertension, Hyperlipidemia, Gastroesophageal Reflux Disease (GERD) PMH Reviewed at 08/06/2025 - :58 Allergies Reviewed at 08/06/2025 - 16:58 Comments: HPI reviewed. Please have medic reevaluate patient on Tuesday 08/07. Patient is concerned that her blood pressure is running low. Her blood pressure today was 123/87. She was encouraged to check her blood pressure daily. Patient also was diagnosed with Covid 19 and has URI symptoms. Medic should wear a mask. Envelope Sealing Machine Operator Organization Information for [employer] Legal Name: [facility] Transportation Address: [address] [place] [address], [place] [address], Pruner: Vega Garcia MD CLIA No.: [id number] Envelope Sealing Machine Operator POC Test Results from [employer] - [facility] Rapid COVID antigen (10:40:43) COVID: - Attachments uploaded as part of this test result can be found under Documents section. Rapid influenza antigen (10:40:46) Flu: - ....................... ....................... ....................... ....................... ....................... ....................... ... Envelope Sealing Machine Operator Note From [employer]: Arrived to find female in her residence. Patient aox4. GCS 15 skin pink warm and dry. Patient had been having URI symptoms for 1 month. Had Covid 1 month ago, tested positive by this provider. Patient has been having symptoms ever since. + productive cough. Increased WOB. Patient VS as noted. Febrile as noted. Lung sounds were clear and equal. However due to coughing and increased WOB patient given a duo neb. Flu and Covid test negative. . [facility] contacted advised a 12 lead ekg. 12 lead as noted. Sinus rhythm no ectopy no JORDYN/STD. [facility] advised to give 750mg of levaquin. Medication given without incident. [facility] to send RX to pharmacy. All questions answered. [facility] Lab Orders: rapid flu (A+B): Performed electrocardiogram: Performed rapid SARS CoV 2 Ag, QL IA, respiratory specimen: Performed [facility] Medication Orders: ipratropium 0.5 mg-albuterol 3 mg (2.5 mg base)/3 mL nebulization soln: Performed levofloxacin 750 mg tablet: Performed ....................... ....................... ....................... ....................... ....................... ....................... ... [facility] Consulted: Eleanor Neves ....................... ....................... ....................... ....................... ....................... ....................... ... Disposition: Fulfilled ELEANOR NEVES MD [address] [facility], [place], [phone], [employer] 08/07/2025 11:09:52 OBGyn Episode No OBEpisode recorded.
--- OUTSIDE RECORDS SUMMARY | 2025-08-16 16:29 | XMS_ITS | Encounter Summary ---
Author Organization [facility] Address [address] [place] [address] Encounters * CPT with Medical instED at [facility] on 2025-07-08 { reasonForRequest : Pt reporting coughing all night>feeling achey>horrible headache to the point of not being able to lift her head>overall not feeling well , patientReports : COPD; Sputum increase ; Cough; Shortness of breath with exertion , denies :[ Increased work of breathing/labored with or without fever , Unable to speak in full sentences without distress , Di scoloration of skin -cyanosis , Needs to sleep sitting up, can t catch breath ,"Shortness of breath in setting of confusion , Cough, fever greater than 2 days ,"Lower extremity swelling , History of asthma, increased use of inhaler , COVID Exposure , Pain with inspiration ], chiefComplaints : Cough, Common Cold, Breathing Problems , pmh : Cancer, COPD/Asthma, Hypertension, Hyperlipidemia, Gastroesophageal Reflux Disease (GERD) , allergies : Penicillins, Nafcillin , otherAllergies :null, painAssessment : , visitOutcome&qu ot;: , additionalComments : 65 y.o female complains of Cough\nPatient self referring\nSymptoms started overnight last night\ndenies any fever, endorses chills body aches andbad headaches\nendorses nasal congestion and nagging cough, increased shortness of breath and feelslike her chest is heavy\nsore throat and raspy voice.\ndenies any nausea, vomiting or diarrhea but does feel bloated and with a lot of flatulence\nOxygen 2L at night only.\nno known sick contacts but has been in and out of md offices for 2 weeks\ndenies any kidney issues not on any blood thinners \nrequesting insted assessment\nI provided information on the mobile health provider response time and advised the patient and/or caregiver to monitor reported signs and symptoms. I discussed the warning signs of when to seek emergency care. } Dispatched to the above address for 65 y/f with a cc of flu like symptoms. Proper ppe was worn throughout the call. Upon arrival: Pt AOx4 in a fowlers position in the kitchen room chair. Pt was noted to have a dry cough (non productive). Pt greeted [facility] and gave a verbal report. Pt stated that around 12 am today she woke up with a new onset of flu like symptoms: body aches/chills/dry cough/sore throat. Pt stated that she has a significant hx of airway problems (used to have lung cancer/copd/hx of pneumonia), and is on home 02 at 2 lpm as needed. Pt stated that she called [facility] today to make sure she doesn't have covid/pneumonia/or other issues. Pt stated that is she feeling like she is congested in her chest and needs to cough it up, but is unable to. - Airway: Patent - Breathing: equal chest rise and fall - LS: clear, slightly diminished in the bases, (-) wheezing/Ronchi/stridor/crackles - Skin: pink, warm, dry - Pupils: PERRL - CMSx4 - Lower extremity: no edema . ABD: soft, non tender, no discoloration - Back: no crepitus. pt denied to pain/diz ziness/nausea/vomiting/blood in urine/difficulty urinating/fever/diarrhea/constipation/falls/SOB. Pt stated that recently took Tylenol, and feels better, and her only cc now is the cough. HEENT. skin in tact with no deformity. Pupils were equal and reactive to light bilaterally. Nose and mouth were unobstructed. Trachea midline, jugular veins were nondistended in seated position. FASTED score: (-) COVID/FLU A/FLU B/STREP. [facility] gave pt education and assurance. Pt stated that if anything changes/gets worse she will eithercall 911/[facility]. Pt agreed with C and stated she will take some over the counted medication for her cough. [facility] clear. All times approximate. IV_(FLUIDS_AND/OR_MEDICATION), MEDICATION_IM, ORAL_MEDICATION, POC_BLOODWORK, POC_FLU_STREP, COVID_TEST Written by Medical instED on 2025-07-08
--- OUTSIDE RECORDS SUMMARY | 2025-08-16 16:29 | XMS_ITS | Encounter Summary ---
Author Organization [facility] Address [address] [place] [address] Care Team Providers Care Electric Meter Repairer Name Role Phone Wil Guerrero MD Primary Care Provider [phone] Reason for Visit * Reason Onset Date Comments Appointment 08/13/2025 [facility] Enrollment Encounter Details Date Type Department Care Team (Late Contact Info) Description 08/13/2025 Telephone Lung Screening Program - [address] [id number] Olga Minor [place] Social History Tobacco Use Types Packs/Day Years [...] on file Sexual Orientation Not on file documented as of this encounter Progress Notes * Olga Minor MA - 08/13/2025 12:29 PM EDT Reached out to patient and left message for her to call us to set up Enrollment visit for the Lung Cancer screening Program, documented in this encounter Plan of Treatment Upcoming Encounters Date Type Department Care Team (Late Contact Info) Description 09/22/2025 2:30 PM EST Clinical Support Lung Screening Program - [place] [address] [facility] [address] [place] [address] 09/22/2025 3:00 PM EST Appointment [facility] CT Scan [address] [place] [address] documented as of this encounter Visit Diagnoses Not on filedocumented in this encounter Care Teams Electric Meter Repairer Relationship Specialty Start Date End Date Wil Guerrero MD [address] [place] [id number] PCP - General Internal Medicine 10/11/20 documented as of this encounter
--- OUTSIDE RECORDS SUMMARY | 2025-08-16 16:29 | XMS_ITS | Encounter Summary ---
Author Organization [facility] Address [address] [place] [phone] Phone Care Team Providers Care Stove Refinisher Name Role Phone Wil Guerrero MD Primary Care Provider Encounter Details Date Type Department Care Team (Late st Contact Info) Description 11/18/2021 Procedure Pass [facility], Ct Scan - [address] [address] Social History Tobacco Use Types Packs/Day Years [...] 11/18/2021 2:05 AM Maryann Gilliland RN * [place] Suicide Severity Rating Scale (Screener/Recent Self-Report) Question [...] on filedocumented in this encounter Care Teams Stove Refinisher Relationship Specialty Start Date End Date Wil Guerrero MD [address] [place] [id number] PCP - General Internal Medicine 06/27/21 documented as of this encounter Additional Source Comments The information contained in this document represents components of the legal health record. It is not the complete legal health record.[facility]
--- OUTSIDE RECORDS SUMMARY | 2025-08-16 16:29 | XMS_ITS | Clinical Summary ---
Author Organization [facility] Address [address] [address] Phone Care Team Providers Care Rib Puller Name Role Phone Wil Guerrero MD Primary [...] EST) SODIUM 139 133 - 146 mmol/L [facility] CHLORIDE 103 96 - 108 mmol/L [facility] POTASSIUM 3.3 3.3 - 5.1 mmol/L [facility] CO2 22 21 - 35 mmol/L [facility] BUN 14 6 - 19 mg/dL [facility] CREATININE 0.90 0.5 - 1.5 mg/dL [facility] GLUCOSE 101(H) 70 - 99 mg/dL [facility] CALCIUM 8.8 8.4 - 10.3 mg/dL [facility] EGFR 72 >59 mL/min/1.7 3m2 [facility] Comment:Estimated glomerular filtration rate calculated using the CKD-EPI refit equation. ANION GAP 17 10 - 20 mmol/L [facility] Blood 11/18/2021 2:19 AM EST 11/18/2021 2:24 AM EST us Beka Bella MD LAB BLOOD ORDERABLES Fin al Result [facility] [address] [place] [address] from Last 3 Months or Most Recently Relevant to Health Maintenance Insurance MEDICARE PART A & B [facility] MEDICARE PART A & B HEALTH MEDICARE PART A & B [place] & B HEALTH MEDICARE PART A & B HEALTH MEDICARE PART A & B MEDICARE PART A & B [facility] Care Teams Rib Puller Relationship Specialty Start Date End Date Wil Guerrero MD [address] [place] [id number] PCP - General Internal Medicine 06/27/21 Additional Source Comments The information contained in this document represents components of the legal health record. It is not the complete legal health record.[facility]
--- OUTSIDE RECORDS SUMMARY | 2025-08-16 16:30 | XMS_ITS | Patient Health Record ---
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 Name Role Phone ElizanickWil Primary Care Provider ALLERGIES Allergen (clinical drug ingredient) Drug/Non Drug Allergy documented on EMR Reaction Allergy Type Onset Date Status nafcillin Nafcillin Sodium hives Drug Allergy Active RESULTS Component Value Reference Range Notes LP+Non-HDL Cholesterol-[id number] 5 Reviewed date:04/20/2025 10:25:41 AM Interpretation: Performing Lab:[facility], [facility], Phone - [phone], Director - MDJoy Notes/Report: Cholesterol, Total 201 100-199 mg/dL Triglycerides 154 0-149 mg/dL HDL Cholesterol 54 >39 mg/dL VLDL Cholesterol Mynor 27 5-40 mg/dL LDL Chol Calc ([facility]) 120 0-99 mg/dL LDL Calc Comment: Non-HDL Cholesterol 147 0-129 mg/dL Hepatic Function Panel ([id number] Reviewed date:04/20/2025 10:25:41 AM Interpretation: Performing Lab:[facility] [place], [facility], Phone - [phone], Director - MDKatlyny Notes/Report: Albumin 4.3 3.9-4.9 g/dL Bilirubin, Total [...] osteoporosis as determined by WHO criteria. WSN: [id number] Ordering Physician: Wil Guerrero Dictated By: Carroll [...] Evaluation. Lay letter mailed to patient WSN: [id number] Ordering Physician: Wil Guerrero Dictated By: Trini [...] Lay letter not required (ultrasound only) WSN: [id number] Ordering Physician: Wil Guerrero Dictated By: Tirso Carrillo MD Chest 2 Views Frontal and La t [...] humeral head. IMPRESSION: No acute abnormality. WSN: [id number] Ordering Physician: Wil Guerrero Dictated By: Isidro Lemon MD REASON FOR REFERRAL Reason Consultation - [...] be sent for referral for a new Property Controller , Carlos SUSANManuela 09/08/2024 03:33:19 PM EST > patient aware paperowrk sent she will call them directly to schedule Clinical Notes Dr. Irvin Palma , P:[phone] , F:[phone] Referral Priority Routine Reason Screening colonoscop y Diagnosis 1 Screening for colon cancer (Z12.11) Referral Organization Wil Guerrero Md Referring Provider First Name Wil Referring Provider Last Name Yolanda Referring Provider Speciality Internal edicine Referred Provider Specialty Gastroentero logy General Notes Argelia Castro 10:37:27 AM EST > Faxed to [facility] Clinical Notes [facility] Referral Priority Routine Reason EGD Diagnosis 1 Esophageal dysphagia (R13.19) Referral Organization Wil Guerrero Md Referring Provider First Name Wil Referring Provider Last Name Yolanda Referring Provider Speciality Internal edicine Referred Provider Specialty Gastroentero logy General Notes Argelia Castro 11:10:34 AM EDT > FaMatthew begum Kalise 02/04/2025 01:56:34 PM EDT > patient [...] Notes Argelia Castro 11:10:47 AM EDT > Matthew Redmond Kalise 02/05/2025 08:29:00 AM EDT > PT [...] be giving them a call. Clinical Notes [place] [facility]ional pain, PH: [phone], F: [phone] Referral Priority Routine MEDICATIONS Medication SIG (Take, Route, Frequency, Duration) Notes Start Date End Date Status Roflumilast 500 MCG Oral Active Losartan Potassium [...] a day for 10 day(s) 07/02/2025 Active Rosuvastatin Calcium 10 MG 1 tablet Oral ly Once a day for 90 Days Active Medrol (Gregorio) 4 MG as directed on packa ge Orally Daily 08/02/2025 Active traZODone HCl 50 MG 1 tablet at bedtime as needed Orally Once a day for 30 day(s) Active Azithromycin 250 MG 2 tablets on the , then 1 tablet daily for 4 days Orally Once a day 08/02/2025 Active Calcium Carbonate-Vitamin D 600-10 MG-MCG 1 tablet with a meal Orally Once a day for 90 Days Active Rosuvastatin Calcium 10 MG TAKE 1 TABLET BY MOUTH DAILY for 90 Active Prolia 60 MG/ML 1 injection Subcutan eous every 6 months for 180 days Active Levalbuterol Tartrate 45 MCG/ACT 1 puff as needed Inhalation every 6 hrs Active Trelegy Ellipta 200-62.5-25 MCG/ACT INHALE 1 PUFF BY MOUTH EVERY DAY Active LORazepam 0.5 MG 1 tablet Orally Once a day for 30 days Active Cyclobenzaprine HCl 10 MG 1 tablet as ne eded Orally 3 times a day for 14 days Active Mometasone Furoate 0.1 % 1 application E xternally Twice a day for 7 days 02/19/2025 Active Naproxen 500 MG 1 tablet with [...] needed Inhalation every 4 hrs Active Ipratropium [place] 0.06 % USE 2 SPRAYS IN EACH NOSTRIL 3 TIMES A DAY Active Losartan Potassium 100 MG TAKE 1 TABLET BY MOUTH EVERY DAY Active Vitamin B 12 250 MCG 2 tabs as directed Orally daily Active Singulair 10 MG 1 tablet Orally Once a day Active Pantoprazole Sodium 40 MG TAKE 1 TABLET BY MOUTH EVERY DAY Active IMMUNIZATIONS Vaccine Route Administration Date Status Comme nts * FLUARIX TIV PFS IM Intramuscular 07/06/2025 Administered *Influenza (Fluarix Quad) IM Intramuscular 09/09/2019 Admi [...] Problem Annual physical exam (Z00.00) Active confirmed 190300355 Problem Vitamin D deficiency (E55.9) Active confirmed 32896416 Problem Rosacea (L71.9) Active confirmed 433182 004 Problem Anxiety (F41.9) Active confirmed 522338 02 Problem COPD exacerbation (J44.1) Active confirmed 308623164 Problem Sacroiliitis (M46.1) Active confirmed 5 1967840 Problem Age-related osteoporosis without current pathological fracture (M81.0) Active confirmed 57586170 Problem Primary insomnia (F51.01) Active confirmed 2615382 Problem Mixed hyperlipidemia (E78.2) Active confirmed 654885221 Problem Essential hypertension (I10) Active confirmed 45909766 Problem Gastroesophageal reflux disease without esophagitis (K21.9) Active confirmed 980973395 Problem Chronic obstructive pulmonary disease, unspecified COPD type (J44.9) Active confirmed 19975564 Problem Spondylosis of lumbar region without myelopathy or radiculopathy (M47.816) Active confirmed 824296445 Problem Depression, unspecified depression type (F32.9) Active confirmed 86043985 Problem Malignant neoplasm of upper lobe of right lung (C34.11) Active confirmed 454072226 Problem Moderate episode of recurrent major depressive disorder (F33.1) Active confirmed 506718026 Problem Osteoporosis without current pathological fracture, unspecified osteoporosis type (M81.0) Active confirmed 96101577 Problem Allergic rhinitis, unspecified seasonality, unspecified trigger (J30.9) Active confirmed 24176881 Problem Major depressive disorder with single episode, in full remission (F32.5) Active confirmed 22344313 Problem Port-A-Cath in place (Z95.828) Active confirmed 200777362 Problem Aneurysm of ascending aorta without rupture (I71.21) Active confirmed 686064729 VITAL SIGNS Heart Rate 68 /min 08/04/2025 Oximetry 98 % 02/25/2025 Oxygen saturati on 96% on ambulation Blood pressure diastolic 72 mm Hg 08/04/2025 Height 64 in 08/04/2025 Blood pressure systolic 106 mm Hg 08/04/2025 Weight 162.8 lbs 08/04/2025 BMI 27.94 kg/m2 08/04/2025 Encounters Encounter Location Date Provider Diagnosis [address] [address] 09/08/2024 Wil Guerrero Chronic obstructive pulmonary disease, [...] Vitamin D deficiency E55.9 Wil Guerrero Md [address] [place] [id number] 09/14/2024 Wil Guerrero [address] [address] 09/21/2024 Wil Guerrero [address] [address] 10/28/2024 Wil Guerrero Annual physical exam Z00.00 ; Mixed hyperlipidemia E78.2 ; Encounter for screening mammogram for malignant neoplasm of breast Z12.31 ; Osteoporosis without current pathological fracture, unspecified osteoporosis type M81.0 and [facility] [address] [address] 02/04/2025 Wil Guerrero Chronic obstructive pulmonary disease, [...] R13.19 and Screening for colon cancer Z12.[address] [address] 02/19/2025 Wil Guerrero Seborrheic dermatiti s L21.[address] [address] 02/25/2025 Wil Guerrero [address] [address] 02/25/2025 Wil Guerrero COPD exacerbation J4 4.[address] [address] 03/22/2025 Wil Guerrero Aneurysm of ascendin g [...] D deficiency E55.9 and Esophageal dysphagia R13.[address] [address] 04/06/2025 Wil Guerrero [address] [address] 04/13/[address] [address] 04/19/2025 Wil Guerrero Chronic obstructive pulmonary disease, [...] R13.19 and Screening for colon cancer Z12.[address] [address] 04/20/[address] [address] 05/06/2025 Wil Guerrero Sacroiliitis M46.1 ; Mixed [...] dysphagia R13.19 and Vitamin D deficiency E55.[address] [address] 05/18/[address] [address] 05/21/2025 Wil Adhikaria L71.[address] [address] 05/27/2025 Wil Perla L71.9 and Pruritus L29.[address] [address] 06/29/[address] [address] 07/02/2025 Wil Guerrero Moderate episode of recurrent major depressive disorder F33.1 ; Anxiety F41.9 ; Allergic dermatitis due to other chemical product L23.5 ; Essential hypertension I10 ; Mixed hyperlipidemia E78.2 ; Osteoporosis without current pathological fracture, unspecified osteoporosis type M81.0 ; Chronic obstructive pulmonary disease, unspecified COPD type J44.9 ; Gastroesophageal reflux disease without esophagitis K21.9 and Rosacea L71.[address] [address] 07/02/2025 Wil Guerrero Anxiety F41.[address] [address] 07/06/2025 Wil Guerrero Encounter for immunization Z23 ; Sacroiliitis M46.1 [...] dysphagia R13.19 and Vitamin D deficiency E55.[address] [address] 07/07/2025 Wil Guerrero Rosacea L71.[address] [address] 07/12/2025 Wil Guerrero [address] [address] 07/14/2025 Wil Guerrero Chronic obstructive pulmonary disease, unspecified COPD type J44.9 and COVID-19 virus infection U07.[address] [address] 08/02/2025 Wil Guerrero Respiratory infectio n J98.8 ; Bronchitis J40 and Productive cough R05.[address] [address] 08/02/2025 Wil Guerrero Bronchitis J40 [address] [address] 08/04/2025 Wil Guerrero Bronchitis J40 ; Respiratory infection J98.8 and Productive cough R05.[address] [address] 08/13/2025 Wil Guerrero Sacroiliitis M46.1 ; Mixed [...] unspecified COPD type (ICD-10 - J44.9) 10/28/2024 Mixed hyperlipidemia (ICD-10 - E78.2) 10/28/2024 Annual physical exam (ICD-10 - Z00.00) 08/13/2025 Sacroiliitis (ICD-10 - M46.1) 08/04/2025 Respiratory infection (ICD-10 - J98.8) 08/04/2025 Bronchitis (ICD-10 - J40) 08/02/2025 Bronchitis (ICD-10 - J40) 08/02/2025 Respiratory infection (ICD-10 - J98.8) 08/02/2025 Bronchitis (ICD-10 - J40) 07/07/2025 Rosacea (ICD-10 - L71.9) 07/02/2025 Anxiety (ICD-10 - F41.9) 05/21/2025 Rosacea (ICD-10 - L71.9) 05/06/2025 Mixed hyperlipidemia (ICD-10 - E78.2) 05/06/2025 Sacroiliitis (ICD-10 - M46.1) 02/25/2025 COPD exacerbation (ICD-10 - J44.1) 02/19/2025 Seborrheic dermatitis (ICD-10 - L21.9) 02/04/2025 Chronic obstructive pulmonary disease, unspecified COPD type (ICD-10 - J44.9) 05/27/2025 Pruritus (ICD-10 - L29.9) 05/27/2025 Rosacea (ICD-10 - L71.9) 07/06/2025 Encounter for immunization (ICD-10 - Z23) 03/22/2025 Age-related osteoporosis without current pathological fracture (ICD-10 - M81.0) 07/02/2025 Moderate episode of recurrent major depressive disorder (ICD-10 - F33.1) 04/19/2025 Chronic obstructive pulmonary disease, unspecified COPD type (ICD-10 - J44.9) 07/02/2025 Anxiety (ICD-10 - F41.9) 03/22/2025 Aneurysm of ascending aorta without rupture (ICD-10 - I71.21) 04/19/2025 Essential hypertension (ICD-10 - I10) 08/04/2025 Productive cough (ICD-10 - R05.8) 08/02/2025 Productive cough (ICD-10 - R05.8) 07/06/2025 Sacroiliitis (ICD-10 - M46.1) 07/14/2025 Chronic obstructive pulmonary disease, unspecified COPD type (ICD-10 - J44.9) 05/06/2025 Osteoporosis without current pathological fracture, unspecified osteoporosis type (ICD-10 - M81.0) 07/02/2025 Allergic dermatitis due to other chemical product (ICD-10 - L23.5) 02/04/2025 Aneurysm of ascending aorta without rupture (ICD-10 - I71.21) 02/04/2025 Essential hypertension (ICD-10 - I10) 08/13/2025 Mixed hyperlipidemia (ICD-10 - E78.2) 04/19/2025 Aneurysm of ascending aorta without rupture (ICD-10 - I71.21) 10/28/2024 Encounter for screening mammogram for malignant neoplasm of breast (ICD-10 - Z12.31) 03/22/2025 Chronic obstructive pulmonary disease, unspecified COPD type (ICD-10 - J44.9) 09/08/2024 Essential hypertension (ICD-10 - I10) 09/08/2024 Aneurysm of ascending aorta without rupture (ICD-10 - I71.21) 02/04/2025 Moderate episode of recurrent major depressive disorder (ICD-10 - F33.1) 07/02/2025 Essential hypertension (ICD-10 - I10) 09/08/2024 Moderate episode of recurrent major depressive disorder (ICD-10 - F33.1) 05/06/2025 Essential hypertension (ICD-10 - I10) 03/22/2025 Essential hypertension (ICD-10 - I10) 07/14/2025 COVID-19 virus infection (ICD-10 - U07.1) 10/28/2024 Osteoporosis without current pathological fracture, unspecified osteoporosis type (ICD-10 - M81.0) 08/13/2025 Osteoporosis without current pathological fracture, unspecified osteoporosis type (ICD-10 - M81.0) 04/19/2025 Moderate episode of recurrent major depressive disorder (ICD-10 - F33.1) 07/06/2025 Mixed hyperlipidemia (ICD-10 - E78.2) 07/06/2025 Osteoporosis without current pathological fracture, unspecified osteoporosis type (ICD-10 - M81.0) 03/22/2025 Moderate episode of recurrent major depressive disorder (ICD-10 - F33.1) 09/08/2024 Age-related osteoporosis without current pathological fracture (ICD-10 - M81.0) Prolia is not covered by insurance. 10/28/2024 Screening for colon cancer (ICD-10 - Z12.11) 07/02/2025 Mixed hyperlipidemia (ICD-10 - E78.2) 02/04/2025 Age-related osteoporosis without current pathological fracture (ICD-10 - M81.0) Prolia is not covered by insurance. 07/06/2025 Essential hypertension (ICD-10 - I10) 05/06/2025 Aneurysm of ascending aorta without rupture (ICD-10 - I71.21) 04/19/2025 Age-related osteoporosis without current pathological fracture (ICD-10 - M81.0) Prolia is not covered by insurance. 08/13/2025 Essential hypertension (ICD-10 - I10) 07/02/2025 Osteoporosis without current pathological fracture, unspecified osteoporosis type (ICD-10 - M81.0) 03/22/2025 Malignant neoplasm of upper lobe of right lung (ICD-10 - C34.11) 04/19/2025 Malignant neoplasm of upper lobe of right lung (ICD-10 - C34.11) 07/06/2025 Aneurysm of ascending aorta without rupture (ICD-10 - I71.21) 08/13/2025 Aneurysm of ascending aorta without rupture (ICD-10 - I71.21) 09/08/2024 Malignant neoplasm of upper lobe of right lung (ICD-10 - C34.11) 05/06/2025 Chronic obstructive pulmonary disease, unspecified COPD type (ICD-10 - J44.9) 02/04/2025 Malignant neoplasm of upper lobe of right lung (ICD-10 - C34.11) 02/04/2025 Gastroesophageal reflux disease without esophagitis (ICD-10 - K21.9) 07/06/2025 Chronic obstructive pulmonary disease, unspecified COPD type (ICD-10 - J44.9) 07/02/2025 Chronic obstructive pulmonary disease, unspecified COPD type (ICD-10 - J44.9) 04/19/2025 Gastroesophageal reflux disease without esophagitis (ICD-10 - K21.9) 03/22/2025 Gastroesophageal reflux disease without esophagitis (ICD-10 - K21.9) 08/13/2025 Chronic obstructive pulmonary disease, unspecified COPD type (ICD-10 - J44.9) 05/06/2025 Moderate episode of recurrent major depressive disorder (ICD-10 - F33.1) 09/08/2024 Gastroesophageal reflux disease without esophagitis (ICD-10 - K21.9) 08/13/2025 Moderate episode of recurrent major depressive disorder (ICD-10 - F33.1) 09/08/2024 Allergic rhinitis, unspecified seasonality, unspecified trigger (ICD-10 - J30.9) 03/22/2025 Allergic rhinitis, unspecified seasonality, unspecified trigger (ICD-10 - J30.9) 05/06/2025 Age-related osteoporosis without current pathological fracture (ICD-10 - M81.0) Prolia is not covered by insurance. 04/19/2025 Allergic rhinitis, unspecified seasonality, unspecified trigger (ICD-10 - J30.9) 02/04/2025 Allergic rhinitis, unspecified seasonality, unspecified trigger (ICD-10 - J30.9) 07/02/2025 Gastroesophageal reflux disease without esophagitis (ICD-10 - K21.9) 07/06/2025 Moderate episode of recurrent major depressive disorder (ICD-10 - F33.1) 09/08/2024 Rosacea (ICD-10 - L71.9) 04/19/2025 Rosacea (ICD-10 - L71.9) 07/02/2025 Rosacea (ICD-10 - L71.9) 03/22/2025 Rosacea (ICD-10 - L71.9) 08/13/2025 Age-related osteoporosis without current pathological fracture (ICD-10 - M81.0) Prolia is not covered by insurance. 07/06/2025 Age-related osteoporosis without current pathological fracture (ICD-10 - M81.0) Prolia is not covered by insurance. 02/04/2025 Rosacea (ICD-10 - L71.9) 05/06/2025 Malignant neoplasm of upper lobe of right lung (ICD-10 - C34.11) 09/08/2024 Anxiety (ICD-10 - F41.9) 05/06/2025 Gastroesophageal reflux disease without esophagitis (ICD-10 - K21.9) 07/06/2025 Malignant neoplasm of upper lobe of right lung (ICD-10 - C34.11) 08/13/2025 Malignant neoplasm of upper lobe of right lung (ICD-10 - C34.11) 02/04/2025 Anxiety (ICD-10 - F41.9) 04/19/2025 Anxiety (ICD-10 - F41.9) 03/22/2025 Anxiety (ICD-10 - F41.9) 02/04/2025 Sacroiliitis (ICD-10 - M46.1) 04/19/2025 Sacroiliitis (ICD-10 - M46.1) 07/06/2025 Gastroesophageal reflux disease without esophagitis (ICD-10 - K21.9) 03/22/2025 Sacroiliitis (ICD-10 - M46.1) 09/08/2024 Sacroiliitis (ICD-10 - M46.1) 08/13/2025 Gastroesophageal reflux disease without esophagitis (ICD-10 - K21.9) 05/06/2025 Allergic rhinitis, unspecified seasonality, unspecified trigger (ICD-10 - J30.9) 02/04/2025 Muscle spasm (ICD-10 - M62.838) 04/19/2025 Muscle spasm (ICD-10 - M62.838) 09/08/2024 Muscle spasm (ICD-10 - M62.838) 05/06/2025 Rosacea (ICD-10 - L71.9) 03/22/2025 Muscle spasm (ICD-10 - M62.838) 08/13/2025 Allergic rhinitis, unspecified seasonality, unspecified trigger (ICD-10 - J30.9) 07/06/2025 Allergic rhinitis, unspecified seasonality, unspecified trigger (ICD-10 - J30.9) 04/19/2025 Primary insomnia (ICD-10 - F51.01) 02/04/2025 Primary insomnia (ICD-10 - F51.01) 08/13/2025 Rosacea (ICD-10 - L71.9) 03/22/2025 Primary insomnia (ICD-10 - F51.01) 07/06/2025 Rosacea (ICD-10 - L71.9) 05/06/2025 Anxiety (ICD-10 - F41.9) 09/08/2024 Primary insomnia (ICD-10 - F51.01) 08/13/2025 Anxiety (ICD-10 - F41.9) 03/22/2025 Vitamin D deficiency (ICD-10 - E55.9) 05/06/2025 Muscle spasm (ICD-10 - M62.838) 04/19/2025 Vitamin D deficiency (ICD-10 - E55.9) 02/04/2025 Vitamin D deficiency (ICD-10 - E55.9) 09/08/2024 Vitamin D deficiency (ICD-10 - E55.9) 07/06/2025 Anxiety (ICD-10 - F41.9) 08/13/2025 Muscle spasm (ICD-10 - M62.838) 02/04/2025 Esophageal dysphagia (ICD-10 - R13.19) 04/19/2025 Esophageal dysphagia (ICD-10 - R13.19) 07/06/2025 Muscle spasm (ICD-10 - M62.838) 05/06/2025 Primary insomnia (ICD-10 - F51.01) 03/22/2025 Esophageal dysphagia (ICD-10 - R13.19) 04/19/2025 Screening for colon cancer (ICD-10 - Z12.11) 08/13/2025 Primary insomnia (ICD-10 - F51.01) 05/06/2025 Esophageal dysphagia (ICD-10 - R13.19) 02/04/2025 Screening for colon cancer (ICD-10 - Z12.11) 07/06/2025 Primary insomnia (ICD-10 - F51.01) 07/06/2025 Esophageal dysphagia (ICD-10 - R13.19) 08/13/2025 Esophageal dysphagia (ICD-10 - R13.19) 05/06/2025 Vitamin D deficiency (ICD-10 - E55.9) 07/06/2025 Vitamin D deficiency (ICD-10 - E55.9) 08/13/2025 Vitamin D deficiency (ICD-10 - E55.9) 09/21/2024 Other This chart has been transcribed by a computerized dictation system. There are likely to be multiple car supplier inaccuracies despite chart review. 10/28/2024 Other This chart has been transcribed by a computerized dictation system. There are likely to be multiple car supplier inaccuracies despite chart review. 07/02/2025 Other This chart has been transcribed by a computerized dictation system. There are likely to be multiple car supplier inaccuracies despite chart review. 09/08/2024 Other This chart has been transcribed by a computerized dictation system. There are likely to be multiple car supplier inaccuracies despite chart review. 02/04/2025 Other This chart has been transcribed by a computerized dictation system. There are likely to be multiple car supplier inaccuracies despite chart review. 05/06/2025 Other This chart has been transcribed by a computerized dictation system. There are likely to be multiple car supplier inaccuracies despite chart review. 04/19/2025 Other This chart has been transcribed by a computerized dictation system. There are likely to be multiple car supplier inaccuracies despite chart review. 08/13/2025 Other This chart has been transcribed by a computerized dictation system. There are likely to be multiple car supplier inaccuracies despite chart review. 08/02/2025 Other This chart has been transcribed by a computerized dictation system. There are likely to be multiple car supplier inaccuracies despite chart review. 08/04/2025 Other This chart has been transcribed by a computerized dictation system. There are likely to be multiple car supplier inaccuracies despite chart review. 02/19/2025 Other This chart has been transcribed by a computerized dictation system. There are likely to be multiple car supplier inaccuracies despite chart review. 02/25/2025 Other This chart has been transcribed by a computerized dictation system. There are likely to be multiple car supplier inaccuracies despite chart review. 03/22/2025 Other This chart has been transcribed by a computerized dictation system. There are likely to be multiple car supplier inaccuracies despite chart review. This chart has been transcribed by a computerized dictation system. There are likely to be multiple car supplier inaccuracies despite chart review. 05/27/2025 Other This chart has been transcribed by a computerized dictation system. There are likely to be multiple car supplier inaccuracies despite chart review. 07/06/2025 Other This chart has been transcribed by a computerized dictation system. There are likely to be multiple car supplier inaccuracies despite chart review. 07/12/2025 Other This chart has been transcribed by a computerized dictation system. There are likely to be multiple car supplier inaccuracies despite chart review. PLAN OF TREATMENT [...] 06/12/2022 Pulmonary Rehab 08/16/2023 Hepatic Function Panel [id number] Hepatic Function Panel [id number] 2024 Lipid Panel-[id number] 10/28/2024 Lipid Panel-[id number] 05/06/2025 Next Appt Details Provider Name:Laura Gagnonchristibreanne mera, 08/17/2025 10:00:00 AM, [address] [place] [address], [phone], Insurance Providers Payer Name Payer Address Payer Phone Subscriber Number Group Number Insured Name Patient Relationship to Insured Coverage Start Date Coverage End Date [address] [place] [address] [phone] [id number] Penelope Alonzo Self - patient is the [...]
--- OUTSIDE RECORDS SUMMARY | 2025-08-16 16:30 | XMS_ITS | Continuity of Care Document ---
Author Name [facility], Medical Address [address] [place] [id number] Organization Unknown Address [address] [place] [id number] Medications No known medications Problems No known problems
--- OUTSIDE RECORDS SUMMARY | 2025-08-16 16:30 | XMS_ITS | Continuity of Care Document ---
Author Name [facility], Medical Address [address] [place] [id number] Organization Unknown Address [address] [place] [id number] Medications No known medications Problems No known problems
--- OUTSIDE RECORDS SUMMARY | 2025-08-16 16:31 | XMS_ITS | Continuity of Care Document ---
Author Name [facility], Medical Address [address] [place] [address] Organization Unknown Address [address] [place] [address] Medications No known medications Problems No known problems
--- OUTSIDE RECORDS SUMMARY | 2025-08-16 16:31 | XMS_ITS | Encounter Summary ---
Author Organization [facility] Address [address] [place] [address] Encounters * CPT with Medical [facility]ED at [facility] on 2025-08-05 Mbr called in to the CRU reports she [...] syncope or pre syncope, or further s/sx. Mbr sts she has been using nebulizer Q 4 hr for SOB and last night woke up gasping needing her nebulizer. Mbr is on day 2 of steroids. Mbr is speaking full clear sentences during phonecall, mbr is hyperverbal, anxious and tearful. No wheeze or stridor noted. Mbr was advised if s/x worsen, jermaine worsening SOB, CP or dizziness/syncope, to call 911 & return to ED. Mbr was advised to hydrate, rest, take meds prescribed. Mbr was offered instED for evaluation and reassurance, which she requests to be for tomorrow. Mbr was advised referral would be submitted. This insurance underwriter sales also suggested mbr to outreach to her therapist, lennie stevens she has through [facility]. Mbr thanked this insurance underwriter sales for christy tance. { reasonForRequest : for tomorrow 08/05/25WEAR A MASK , patientReports&q uot;: , denies :[], chiefComplaints : Low Blood Pressure, Breathing Problems , pmh : Cancer, COPD/Asthma, Hypertension, Hyperlipidemia, Gastroes ophageal Reflux Disease (GERD) , allergies : Penicillins, Nafcillin , otherAllergies :null, painAssessment : , visitOutcome : &qu ot;, additionalComments : HPI reviewed } InstED visit for female patient with complaint of varying blood pressures and some ongoing symptomsfrom recent bout of Covid. Patient presents at home, noting systolic blood pressures, dipping lowerthan her baseline in recent days. Patient denies [...] Lung sounds clear bilaterally. Consult consulted with [facility] [place]. Messina who reviewed patient???s concerns and encouraged her to continue monitoring blood pressures at home as well as as her position and which arm she is using and to use consistent technique and evaluating blood pressure. Follow up InstED visit scheduled for a few few days out. Reviewed red flags. Patient education provided. IV_(FLUIDS_AND/OR_MEDICATION), ORAL_MEDICATION, POC_BLOODWORK, POC_FLU_STREP, COVID_TEST, ORTHOSTATIC_VITAL_SIGNS, IV_MEDICATION Written by Medical instED on 2025-08-05
--- OUTSIDE RECORDS SUMMARY | 2025-08-16 16:31 | XMS_ITS | Clinical Summary ---
Author Organization [facility] Address [address] [place] [address] Care Team Providers Care Lining Cementer Name Role Phone Wil Guerrero MD Primary Care Provider [phone] Allergies Active Allergy Reactions Criticality Noted Date [...] spray in each nostril daily. 0 Active Rbyspwu-Vfdeptbvolf-M ormoterol (BREZTRI AEROSPHERE IN) Inhale into the [...] age to complete this topic Care Teams Lining Cementer Relationship Specialty Start Date End Date Wil Guerrero MD [address] [place] [address] [address] & [place] [id number] PCP - General Internal Medicine 04/21/19
--- OUTSIDE RECORDS SUMMARY | 2025-08-16 16:31 | XMS_ITS | Encounter Summary ---
Author Organization [facility] Address [address] [place] [address] Encounters * CPT with Medical instED at [facility] on 2025-08-07 Positive for Covid, per last instED visit on 08/05/2025 member states concern regarding LBP. { reasonForRequest : Blood Pressure check/ revisit , patientReports :& quot; , denies :[], chiefComplaints : Low Blood Pressure , pmh : Cancer, COPD/Asthma, Hypertension, Hyperlipidemia, Gastroesophageal Reflux Disease (G ERD) , allergies : Penicillins, Nafcillin , otherAllergies :null, painAssessment : , visitOutcome : , additionalComments : HPI reviewed. \n\nPlease have medic reevaluate patient on Tuesday 08/07. Patient is concerned that her blood pressure is running low. Her blood pressure today was 123/87. She was encouraged to check her blood pressure daily. Patient also was diagnosed with Covid 19 and has URI symptoms. Medic should wear a mask. } Others Arrived to find female in her residence. [...] neb. Flu and Covid test negative. . [facility] contacted advised a 12 lead ekg. 12 lead as noted. Sinus rhythm no ectopy no JORDYN/STD. [facility] advised to give 750mg of levaquin. Medication given without incident. [facility] to send RX to pharmacy. All questions answered. IV_(FLUIDS_AND/OR_MEDICATION), POC_BLOODWORK, ORTHOSTATIC_VITAL_SIGNS, IV_MEDICATION Written by Medical instED on 2025-08-07
== END 2025-08-16 13:42 | disposition home or self-care (01) ==
LOC: HO.HPS 13:00
PROVIDERS: PCP Internal Medicine; Visit Provider Hospitalist
DX: J41.1 Mucopurulent chronic bronchitis (principal); Z85.118 Personal history of other malignant neoplasm of bronchus and lung; R06.09 Other forms of dyspnea; R13.10 Dysphagia, unspecified
CPT/HCPCS: 99214; G2211

== ENCOUNTER → 2025-08-16 13:00 | Outpatient (BNVA) | payer OTHER, SELFPAY | PROVIDERS: PCP Internal Medicine; Visit Provider Hospitalist | DX: J41.1 Mucopurulent chronic bronchitis (principal); R06.09 Other forms of dyspnea; R13.10 Dysphagia, unspecified; Z85.118 Personal history of other malignant neoplasm of bronchus and lung | CPT/HCPCS: 99212 ==